=== PATIENT | male | born 1980 | race Asian ===

== ENCOUNTER 2017-07-15 04:50 | Inpatient (IN) | payer MEDICAID ==
[2017-07-15] VITALS (7 sets, daily range): BP systolic 100–132
[~2017-07-15] VITALS: Ht 182.9 cm; Wt 88.5 kg
[~2017-07-15 04:50] MED LIST: CAT2PAT TD; CHLO473M5 MM; LEVE100S GT; NOR10 GT; TOPXL100 PO; TYLL650 PO; VITD2000 GT
[2017-07-15] MEDS ORDERED: NACL 0.9% 1,000 ML IV SCH (05:05)
[2017-07-15 05:45] LABS: BILIRUBIN,URINE NEGATIVE (NEGATIVE); BLOOD, URINE 2+ (NEGATIVE); CLARITY/URINE CLEAR (CLEAR); COLOR,URINE YELLOW (YELLOW); GLUCOSE,URINE NEGATIVE (NEGATIVE); KETONES,URINE NEGATIVE (NEGATIVE); LEUKOCYTE ESTERASE ,URINE NEGATIVE (NEGATIVE); NITRITE, URINE NEGATIVE (NEGATIVE); PH,URINE 6.5 (5.0-8.0); PROTEIN URINE 2+ (NEGATIVE); UROBILINOGEN,URINE 0.2 (0.2-1.0)
[2017-07-15 05:50] LABS: BACTERIA,URINE MODERATE /HPF (None Seen); RBC,URINE 20-50 /HPF (0-3); WBC,URINE 0-3 /HPF (0-3)
[2017-07-15 05:53] LABS: BASOPHILS % (AUTO) 0.3 % (0.0-2.0); EOSINOPHILS % (AUTO) 0.4 % (0.0-4.0); MEAN CORPUSCULAR HEMOGLOBIN 31 pg (27-31); MONOCYTES # (AUTO) 0.7 K/uL (0.0-1.0)
[2017-07-15 06:00] LABS: HEMATOCRIT 44.1 % (36-54); HEMOGLOBIN 14.4 g/dL (14.0-18.0); LYMPHOCYTES # (AUTO) 0.9 K/uL (1.0-5.5); LYMPHOCYTES % (AUTO) 9.6 % (20.5-51.5); MEAN CORPUSCULAR HGB CONC 33 % (32-36); MEAN CORPUSCULAR VOLUME 93 fL (79.0-98.0); NEUTROPHILS # (AUTO) 8.2 K/uL (1.8-7.7); NEUTROPHILS % (AUTO) 82.7 % (40.0-70.0); PLATELET COUNT (AUTO) 200 K/uL (130-430); RED BLOOD CELL COUNT(AUTO) 4.74 MIL/uL (4.2-6.2); WHITE BLOOD COUNT (AUTO) 9.8 K/uL (4.8-10.8)
[2017-07-15 06:01] LABS: CALCIUM 9.9 mg/dL (8.4-11.0); CREATININE 2.22 mg/dL (0.55-1.30); POTASSIUM 3.6 mmol/L (3.5-5.1)
[2017-07-15 06:04] LABS: INR 1.1 (0.80-1.20); PROTHROMBIN TIME 10.7 SECS (9.5-12.5)
[2017-07-15 06:05] LABS: ALBUMIN 3.2 g/dL (3.4-4.8); TOTAL BILIRUBIN 0.4 mg/dL (0.0-1.0)
[2017-07-15] MEDS ORDERED: CEFTAZIDIME 1 GM in D5W 50 ML IV ONE (06:15)
[2017-07-15] MEDS ORDERED: CEFTAZIDIME 1 GM VIAL ONE (06:21)
[2017-07-15] MEDS ORDERED: SENN8.8S12 GT (06:34)
[2017-07-15] MEDS ORDERED: OMEG1CAP97 GT (06:34)
[2017-07-15] MEDS ORDERED: ALBU2.5V7 INH ×2 (06:34)
[2017-07-15] MEDS ORDERED: MAGN400O4 GT (06:34)
[2017-07-15] MEDS ORDERED: VITD2000 GT (06:34)
[2017-07-15] MEDS ORDERED: COLL100 GT (06:34)
[2017-07-15] MEDS ORDERED: NACL 0.9% 1,000 ML IV ONE (06:37)
[2017-07-15] MEDS: KCL 20 mEq in D5/0.45NS 1000mL 1,000 ML IV SCH ×2 (08:57→19:17)
[2017-07-15] MEDS ORDERED: MILK OF MAGNESIA 30 ML UDC PO PRN (09:45)
[2017-07-15] MEDS ORDERED: ALBUTEROL SULFATE 0.083% 2.5 MG/3 ML VIAL.NEB INH PRN ×2 (09:45)
[2017-07-15] MEDS ORDERED: LevALBUTEROL HCL 1.25 MG/0.5 ML *CONC.* VIAL.NEB (XOPENEX CONC.) INH PRN (09:45)
[2017-07-15] MEDS ORDERED: ACETAMINOPHEN 650 MG/20.3 ML UDC PO PRN (09:45)
[2017-07-15] MEDS ORDERED: METOPROLOL SUCCINATE 50 MG TAB.SR.24H (TOPROL XL) PO ONE (10:30)
[2017-07-15] MEDS ORDERED: CHOLECALCIFEROL (VITAMIN D3) 2,000 UNIT TABLET GT ONE (10:30)
[2017-07-15] MEDS ORDERED: amLODIPine BESYLATE 10 MG TABLET GT ONE (10:30)
[2017-07-15] MEDS ORDERED: levETIRAcetam 500 MG TABLET GT ONE (10:30)
[2017-07-15] MEDS: PIPERACILLIN/TAZO 3.375/DEX-IS 50 ML IV SCH ×2 (11:39→17:44)
[2017-07-15] MEDS ORDERED: AZITHROMYCIN 250 MG TABLET GT ONE (12:45)
[2017-07-15] MEDS ORDERED: METOPROLOL TARTRATE 25 MG TABLET GT ONE (13:00)
[2017-07-15] MEDS: LevALBUTEROL HCL 1.25 MG/0.5 ML *CONC.* VIAL.NEB (XOPENEX CONC.) INH SCH ×2 (15:10→23:45)
[2017-07-15] MEDS ORDERED: FLU VACC QS 2017-18(36MOS+)/PF 0.5 ML/SYR SYRINGE I.M. PRN (15:45)
[2017-07-15] MEDS: MILK OF MAGNESIA 30 ML UDC GT SCH (21:00)
[2017-07-15] MEDS ORDERED: DOCUSATE SODIUM 100 MG/10 ML UDC GT SCH (21:00)
[2017-07-15] MEDS: SENNOSIDES/DOCUSATE SODIUM 1 TAB TABLET(SENOKOT-S) GT SCH (21:00)
[2017-07-15] MEDS: DOCUSATE SODIUM 100 MG/10 ML UDC GT SCH (21:00)
[2017-07-15] MEDS ORDERED: METOPROLOL SUCCINATE 50 MG TAB.SR.24H (TOPROL XL) PO SCH (21:00)
[2017-07-15] MEDS: levETIRAcetam 500 MG TABLET GT SCH (21:53)
[2017-07-15] MEDS: METOPROLOL TARTRATE 25 MG TABLET GT SCH (21:55)
[2017-07-15] MEDS: CHLORHEXIDINE GLUCONATE 15 ML/DOSE, 480 ML MM SCH (21:56)
[2017-07-16] MEDS: PIPERACILLIN/TAZO 3.375/DEX-IS 50 ML IV SCH ×4 (00:04→17:22)
[2017-07-16 00:54] VITALS: BP_SYST 107
[2017-07-16] MEDS: KCL 20 mEq in D5/0.45NS 1000mL 1,000 ML IV SCH ×2 (04:14→16:59)
[2017-07-16 07:04] LABS: BASOPHILS % (AUTO) 0.3 % (0.0-2.0); EOSINOPHILS # (AUTO) 0.4 K/uL (0.0-0.4); EOSINOPHILS % (AUTO) 4.2 % (0.0-4.0); HEMATOCRIT 35.9 % (36-54); HEMOGLOBIN 12.1 g/dL (14.0-18.0); LYMPHOCYTES # (AUTO) 1.1 K/uL (1.0-5.5); MEAN CORPUSCULAR HEMOGLOBIN 32 pg (27-31); MEAN CORPUSCULAR HGB CONC 34 % (32-36); MEAN CORPUSCULAR VOLUME 94 fL (79.0-98.0); MONOCYTES # (AUTO) 0.8 K/uL (0.0-1.0); MONOCYTES % (AUTO) 8.4 % (1.7-9.3); NEUTROPHILS # (AUTO) 6.9 K/uL (1.8-7.7); NEUTROPHILS % (AUTO) 75.1 % (40.0-70.0); PLATELET COUNT (AUTO) 158 K/uL (130-430); RED BLOOD CELL COUNT(AUTO) 3.81 MIL/uL (4.2-6.2); RED CELL DISTRIBUTION WIDTH 12.7 % (9.0-15.0); WHITE BLOOD COUNT (AUTO) 9.2 K/uL (4.8-10.8)
[2017-07-16] MEDS: LevALBUTEROL HCL 1.25 MG/0.5 ML *CONC.* VIAL.NEB (XOPENEX CONC.) INH SCH ×2 (07:04→15:29)
[2017-07-16 07:07] LABS: CALCIUM 8.3 mg/dL (8.4-11.0); CREATININE 1.67 mg/dL (0.55-1.30); POTASSIUM 3.4 mmol/L (3.5-5.1)
[2017-07-16 07:34] LABS: ALBUMIN 2.5 g/dL (3.4-4.8); FREE T4 (FREE THYROXINE) 1.3 ng/dl (0.8-1.5); PHOSPHORUS 2.5 mg/dL (2.7-4.5); TOTAL BILIRUBIN 0.3 mg/dL (0.0-1.0)
[2017-07-16 07:58] VITALS: BP_SYST 115
[2017-07-16] MEDS: DOCUSATE SODIUM 100 MG/10 ML UDC GT SCH ×2 (09:00→20:33)
[2017-07-16] MEDS ORDERED: CHOLECALCIFEROL (VITAMIN D3) 2,000 UNIT TABLET GT SCH (09:00)
[2017-07-16] MEDS: CHOLECALCIFEROL (VITAMIN D3) 2,000 UNIT TABLET GT SCH (09:13)
[2017-07-16] MEDS: AZITHROMYCIN 250 MG TABLET GT SCH (09:13)
[2017-07-16] MEDS: amLODIPine BESYLATE 10 MG TABLET GT SCH (09:14)
[2017-07-16] MEDS: levETIRAcetam 500 MG TABLET GT SCH ×2 (09:14→20:33)
[2017-07-16] MEDS: METOPROLOL TARTRATE 25 MG TABLET GT SCH ×2 (09:14→20:34)
[2017-07-16] MEDS: CHLORHEXIDINE GLUCONATE 15 ML/DOSE, 480 ML MM SCH ×2 (09:18→20:35)
[2017-07-16] MEDS ORDERED: POTASSIUM CHLORIDE 20 MEQ/PKT PACKET GT ONE (11:00)
[2017-07-16 12:37] VITALS: BP_SYST 103
[2017-07-16 16:16] VITALS: BP_SYST 114
[2017-07-16 20:09] VITALS: BP_SYST 116
[2017-07-16] MEDS: MILK OF MAGNESIA 30 ML UDC GT SCH (20:34)
[2017-07-16] MEDS: POTASSIUM CHLORIDE 20 MEQ/PKT PACKET PO SCH (20:35)
[2017-07-16] MEDS: SENNOSIDES/DOCUSATE SODIUM 1 TAB TABLET(SENOKOT-S) GT SCH (20:36)
[2017-07-17 00:01] VITALS: BP_SYST 117
[2017-07-17] MEDS: PIPERACILLIN/TAZO 3.375/DEX-IS 50 ML IV SCH ×3 (01:34→12:41)
[2017-07-17] MEDS: KCL 20 mEq in D5/0.45NS 1000mL 1,000 ML IV SCH ×2 (02:41→16:01)
[2017-07-17] MEDS: LevALBUTEROL HCL 1.25 MG/0.5 ML *CONC.* VIAL.NEB (XOPENEX CONC.) INH SCH ×3 (05:05→16:26)
[2017-07-17 07:59] VITALS: BP_SYST 148
[2017-07-17 08:17] LABS: BASOPHILS % (AUTO) 0.3 % (0.0-2.0); EOSINOPHILS # (AUTO) 0.5 K/uL (0.0-0.4); EOSINOPHILS % (AUTO) 6.5 % (0.0-4.0); HEMOGLOBIN 12.3 g/dL (14.0-18.0); LYMPHOCYTES # (AUTO) 1.3 K/uL (1.0-5.5); LYMPHOCYTES % (AUTO) 17.8 % (20.5-51.5); MEAN CORPUSCULAR HEMOGLOBIN 31 pg (27-31); MEAN CORPUSCULAR HGB CONC 33 % (32-36); MEAN CORPUSCULAR VOLUME 95 fL (79.0-98.0); MONOCYTES # (AUTO) 0.6 K/uL (0.0-1.0); MONOCYTES % (AUTO) 7.5 % (1.7-9.3); NEUTROPHILS % (AUTO) 67.9 % (40.0-70.0); PLATELET COUNT (AUTO) 161 K/uL (130-430); RED BLOOD CELL COUNT(AUTO) 3.92 MIL/uL (4.2-6.2); RED CELL DISTRIBUTION WIDTH 12.9 % (9.0-15.0); WHITE BLOOD COUNT (AUTO) 7.4 K/uL (4.8-10.8)
[2017-07-17] MEDS: CHOLECALCIFEROL (VITAMIN D3) 2,000 UNIT TABLET GT SCH (08:21)
[2017-07-17] MEDS: amLODIPine BESYLATE 10 MG TABLET GT SCH (08:22)
[2017-07-17] MEDS: POTASSIUM CHLORIDE 20 MEQ/PKT PACKET PO SCH (08:23)
[2017-07-17] MEDS: levETIRAcetam 500 MG TABLET GT SCH (08:23)
[2017-07-17] MEDS: DOCUSATE SODIUM 100 MG/10 ML UDC GT SCH (08:23)
[2017-07-17] MEDS: AZITHROMYCIN 250 MG TABLET GT SCH (08:23)
[2017-07-17] MEDS: METOPROLOL TARTRATE 25 MG TABLET GT SCH (08:23)
[2017-07-17 08:44] LABS: ALBUMIN 2.9 g/dL (3.4-4.8); CALCIUM 9.2 mg/dL (8.4-11.0); CREATININE 1.33 mg/dL (0.55-1.30); TOTAL BILIRUBIN 0.3 mg/dL (0.0-1.0)
[2017-07-17 11:00] VITALS: BP_SYST 136
[2017-07-17 12:14] VITALS: BP_SYST 136
[2017-07-17] MEDS: CHLORHEXIDINE GLUCONATE 15 ML/DOSE, 480 ML MM SCH (12:46)
[2017-07-17] MEDS ORDERED: PIPE3.379 IV (16:51)
[2017-07-17 16:55] VITALS: BP_SYST 136
[2017-07-17 17:00] VITALS: BP_SYST 133
[2017-07-17] MEDS ORDERED: PIPERACILLIN/TAZO 3.375/DEX-IS 50 ML IV SCH (22:00)
[2017-07-19] MEDS ORDERED: cloNIDine HCL 0.2 MG/24 HR PATCH.TDWK TD SCH (09:00)
== END 2017-07-17 19:38 | DRG 469 ==
LOC: SED 04:50 → STU 06:22 → SMU 07-17 16:16
PROVIDERS: ADMIT Family Medicine; ATTEND Internal Medicine
DX: N17.0 Acute kidney failure with tubular necrosis (principal); J96.20 Acute and chronic respiratory failure, unspecified whether with hypoxia or hypercapnia; G93.49 Other encephalopathy; J15.1 Pneumonia due to Pseudomonas; J15.6 Pneumonia due to other Gram-negative bacteria; Z93.0 Tracheostomy status; I10 Essential (primary) hypertension; N31.9 Neuromuscular dysfunction of bladder, unspecified; Z82.3 Family history of stroke; Z82.49 Family history of ischemic heart disease and other diseases of the circulatory system; Z86.73 Personal history of transient ischemic attack (TIA), and cerebral infarction without residual deficits
CPT/HCPCS: 36415; 71045; 76700-TC; 78226; 80053; 81000-TC; 83605; 84100-TC; 84439; 85025; 85610-TC; 85730-TC; 87040-TC; 87070-TC; 87081; 87086; 87186-TC; 87205-TC; 94640; 94760; 96361; 96365; 99285; A9537; J0713; J2543; J7030; J7060; Q0144; Q2037

== ENCOUNTER 2018-05-06 19:24 | Inpatient (IN) | payer MEDICAID ==
[~2018-05-06] VITALS: Ht 185.4 cm; Wt 98.9 kg
[~2018-05-06 19:24] MED LIST changes: +ALBU2.5V7 INH; +CAT.2 GT; +COLL100 GT; +DEXT30DR6 EACH EYE; +DOCU-144 GT; +LEVE500T9 GT; +METO-442 GT; +MOM GT; +MOM PO; +NITR50CA PO; +NOR10 PO; +OMEG-158 GT; +SENN8.6T19 GT; +SENN8.8S12 GT; +TYLL650 GT; +[UNRECOGNIZED DRUG - CODE] OP
[2018-05-06 19:25] VITALS: BP_SYST 93
[2018-05-06] MEDS ORDERED: VANCOMYCIN HCL 1,000 MG in NS 250 ML IV ONE (19:45)
[2018-05-06] MEDS ORDERED: NACL 0.9% 1,000 ML IV ONE (19:45)
[2018-05-06] MEDS ORDERED: PIPERACILLIN/TAZO 3.375 GM in NS 50 ML IV ONE (19:45)
[2018-05-06 20:02] LABS: EOSINOPHILS # (AUTO) 0.1 K/uL (0.0-0.4); EOSINOPHILS % (AUTO) 0.8 % (0.0-4.0); HEMOGLOBIN 14.8 g/dL (14.0-18.0)
[2018-05-06] MEDS ORDERED: PIPERACILLIN/TAZOBACTAM 3.375 GM/VIAL (ZOSYN) IV ONE (20:03)
[2018-05-06 20:12] LABS: CALCIUM 9.8 mg/dL (8.4-11.0); CREATININE 1.67 mg/dL (0.55-1.30); POTASSIUM 4.2 mmol/L (3.5-5.1)
[2018-05-06 20:15] LABS: BILIRUBIN,URINE NEGATIVE (NEGATIVE); BLOOD, URINE NEGATIVE (NEGATIVE); CLARITY/URINE CLEAR (CLEAR); COLOR,URINE YELLOW (YELLOW); GLUCOSE,URINE NEGATIVE (NEGATIVE); KETONES,URINE NEGATIVE (NEGATIVE); LEUKOCYTE ESTERASE ,URINE NEGATIVE (NEGATIVE); NITRITE, URINE NEGATIVE (NEGATIVE); PH,URINE 5.5 (5.0-8.0); PROTEIN URINE 2+ (NEGATIVE); UROBILINOGEN,URINE 0.2 (0.2-1.0)
[2018-05-06 20:18] LABS: INR 1.1 (0.80-1.20); PROTHROMBIN TIME 10.8 SECS (9.5-12.5)
[2018-05-06 20:21] LABS: BACTERIA,URINE MODERATE /HPF (None Seen); FINE GRANULAR CASTS,URINE 0-10 /LPF (None Seen); RBC,URINE 0-3 /HPF (0-3); WBC,URINE 0-3 /HPF (0-3)
[2018-05-06 20:24] LABS: BASOPHILS # (AUTO) 0.2 K/uL (0.0-0.2); HEMATOCRIT 45.3 % (36-54); LYMPHOCYTES % (AUTO) 6.3 % (20.5-51.5); MEAN CORPUSCULAR HEMOGLOBIN 31 pg (27-31); MEAN CORPUSCULAR HGB CONC 33 % (32-36); MEAN CORPUSCULAR VOLUME 93 fL (79.0-98.0); MONOCYTES # (AUTO) 1.3 K/uL (0.0-1.0); MONOCYTES % (AUTO) 8.3 % (1.7-9.3); NEUTROPHILS % (AUTO) 83.6 % (40.0-70.0); PLATELET COUNT (AUTO) 199 K/uL (130-430); RED BLOOD CELL COUNT(AUTO) 4.85 MIL/uL (4.2-6.2); RED CELL DISTRIBUTION WIDTH 14.6 % (9.0-15.0); WHITE BLOOD COUNT (AUTO) 15.6 K/uL (4.8-10.8)
[2018-05-06] MEDS ORDERED: VANCOMYCIN HCL 1000 MG/VIAL IV ONE (20:26)
[2018-05-06 20:28] LABS: ALBUMIN 2.8 g/dL (3.4-4.8); TOTAL BILIRUBIN 0.6 mg/dL (0.0-1.0)
[2018-05-06] MEDS ORDERED: CLON0.2T GT (20:51)
[2018-05-06] MEDS: LevALBUTEROL HCL 1.25 MG/0.5 ML *CONC.* VIAL.NEB (XOPENEX CONC.) INH SCH (23:00)
[2018-05-06] MEDS ORDERED: KCL 20 mEq in D5NS 1000 mL 1,000 ML IV ONE (23:00)
[2018-05-07] VITALS (26 sets, daily range): BP systolic 91–116
[2018-05-07] MEDS ORDERED: PIPERACILLIN/TAZOBACTAM 2.25 GM VIAL IV ONE (00:35)
[2018-05-07] MEDS ORDERED: PIPERACILLIN/TAZOBACTAM 2.25 GM in NS 50 ML IV SCH (02:00)
[2018-05-07] MEDS: LevALBUTEROL HCL 1.25 MG/0.5 ML *CONC.* VIAL.NEB (XOPENEX CONC.) INH SCH ×6 (03:54→23:22)
[2018-05-07 06:30] LABS: BASOPHILS % (AUTO) 0.2 % (0.0-2.0); EOSINOPHILS # (AUTO) 0.3 K/uL (0.0-0.4); EOSINOPHILS % (AUTO) 2.1 % (0.0-4.0); HEMATOCRIT 36.9 % (36-54); HEMOGLOBIN 12.1 g/dL (14.0-18.0); LYMPHOCYTES # (AUTO) 0.6 K/uL (1.0-5.5); LYMPHOCYTES % (AUTO) 4.6 % (20.5-51.5); MEAN CORPUSCULAR HEMOGLOBIN 30 pg (27-31); MEAN CORPUSCULAR HGB CONC 33 % (32-36); MEAN CORPUSCULAR VOLUME 92 fL (79.0-98.0); MONOCYTES # (AUTO) 0.8 K/uL (0.0-1.0); MONOCYTES % (AUTO) 6.3 % (1.7-9.3); NEUTROPHILS # (AUTO) 10.8 K/uL (1.8-7.7); NEUTROPHILS % (AUTO) 86.8 % (40.0-70.0); PLATELET COUNT (AUTO) 195 K/uL (130-430); RED BLOOD CELL COUNT(AUTO) 4.01 MIL/uL (4.2-6.2); RED CELL DISTRIBUTION WIDTH 14.1 % (9.0-15.0); WHITE BLOOD COUNT (AUTO) 12.5 K/uL (4.8-10.8)
[2018-05-07 07:02] LABS: ALBUMIN 2.3 g/dL (3.4-4.8); CALCIUM 8.9 mg/dL (8.4-11.0); CREATININE 1.54 mg/dL (0.55-1.30); POTASSIUM 4.1 mmol/L (3.5-5.1); TOTAL BILIRUBIN 0.7 mg/dL (0.0-1.0)
[2018-05-07] MEDS: VANCOMYCIN HCL 1,500 MG in NS 250 ML IV SCH ×2 (09:36→21:48)
[2018-05-07] MEDS: PIPERACILLIN/TAZOBACTAM 2.25 GM in NS 50 ML IV SCH ×2 (11:32→17:20)
[2018-05-07] MEDS: 0.45% NACL 1,000 ML IV SCH (11:32)
[2018-05-07] MEDS ORDERED: ALBUTEROL SULFATE 0.083% 2.5 MG/3 ML VIAL.NEB INH PRN (19:45)
[2018-05-07] MEDS ORDERED: ACETAMINOPHEN 650 MG/20.3 ML UDC PO PRN (19:45)
[2018-05-07] MEDS ORDERED: cloNIDine HCL 0.2 MG TABLET GT SCH (19:45)
[2018-05-07] MEDS ORDERED: CHLORHEXIDINE GLUCONATE 15 ML/DOSE, 480 ML MM SCH (21:00)
[2018-05-07] MEDS: METOPROLOL TARTRATE 50 MG TABLET GT SCH (21:00)
[2018-05-07] MEDS: LevETIRAcetam 500 MG/5 ML UDC ORAL LIQUID GT SCH (21:00)
[2018-05-07] MEDS: DOCUSATE SODIUM 100 MG/10 ML UDC GT SCH (21:48)
[2018-05-07] MEDS: MILK OF MAGNESIA 30 ML UDC GT SCH (21:48)
[2018-05-07] MEDS: PEG 400/HYPROMELLOSE/GLYCERIN 15 ML DROPS OP SCH (21:49)
[2018-05-07] MEDS ORDERED: levETIRAcetam 500 MG TABLET ONE (22:00)
[2018-05-08] VITALS (24 sets, daily range): BP systolic 103–140
[2018-05-08] MEDS: PIPERACILLIN/TAZOBACTAM 2.25 GM in NS 50 ML IV SCH ×5 (01:09→23:13)
[2018-05-08] MEDS: LevALBUTEROL HCL 1.25 MG/0.5 ML *CONC.* VIAL.NEB (XOPENEX CONC.) INH SCH ×6 (04:13→23:10)
[2018-05-08 05:37] LABS: BASOPHILS % (AUTO) 0.4 % (0.0-2.0); EOSINOPHILS # (AUTO) 0.4 K/uL (0.0-0.4); EOSINOPHILS % (AUTO) 4.6 % (0.0-4.0); HEMATOCRIT 35.1 % (36-54); HEMOGLOBIN 11.3 g/dL (14.0-18.0); LYMPHOCYTES # (AUTO) 0.5 K/uL (1.0-5.5); LYMPHOCYTES % (AUTO) 6.2 % (20.5-51.5); MEAN CORPUSCULAR HEMOGLOBIN 30 pg (27-31); MEAN CORPUSCULAR HGB CONC 32 % (32-36); MEAN CORPUSCULAR VOLUME 93 fL (79.0-98.0); MONOCYTES # (AUTO) 0.6 K/uL (0.0-1.0); MONOCYTES % (AUTO) 6.9 % (1.7-9.3); NEUTROPHILS # (AUTO) 7.1 K/uL (1.8-7.7); NEUTROPHILS % (AUTO) 81.9 % (40.0-70.0); PLATELET COUNT (AUTO) 198 K/uL (130-430); RED BLOOD CELL COUNT(AUTO) 3.78 MIL/uL (4.2-6.2); WHITE BLOOD COUNT (AUTO) 8.6 K/uL (4.8-10.8)
[2018-05-08 05:40] LABS: ALBUMIN 2.2 g/dL (3.4-4.8); CALCIUM 8.8 mg/dL (8.4-11.0); CREATININE 1.32 mg/dL (0.55-1.30); POTASSIUM 4.1 mmol/L (3.5-5.1)
[2018-05-08 06:07] LABS: TOTAL BILIRUBIN 0.3 mg/dL (0.0-1.0)
[2018-05-08] MEDS: 0.45% NACL 1,000 ML IV SCH ×2 (07:15→16:32)
[2018-05-08] MEDS: DOCUSATE SODIUM 100 MG/10 ML UDC GT SCH ×2 (08:12→21:01)
[2018-05-08] MEDS: amLODIPine BESYLATE 10 MG TABLET GT SCH (08:13)
[2018-05-08] MEDS: METOPROLOL TARTRATE 50 MG TABLET GT SCH ×2 (08:13→21:02)
[2018-05-08] MEDS: CHLORHEXIDINE GLUCONATE 15 ML/DOSE, 480 ML MM SCH ×2 (09:30→20:59)
[2018-05-08] MEDS: PEG 400/HYPROMELLOSE/GLYCERIN 15 ML DROPS OP SCH ×4 (09:32→21:02)
[2018-05-08] MEDS: LevETIRAcetam 500 MG/5 ML UDC ORAL LIQUID GT SCH ×2 (09:33→21:02)
[2018-05-08] MEDS: VANCOMYCIN HCL 1,500 MG in NS 250 ML IV SCH ×2 (09:33→21:00)
[2018-05-08] MEDS: MILK OF MAGNESIA 30 ML UDC GT SCH (21:00)
[2018-05-09] VITALS (11 sets, daily range): BP systolic 123–159
[2018-05-09] MEDS: LevALBUTEROL HCL 1.25 MG/0.5 ML *CONC.* VIAL.NEB (XOPENEX CONC.) INH SCH ×6 (04:10→23:10)
[2018-05-09] MEDS: PIPERACILLIN/TAZOBACTAM 2.25 GM in NS 50 ML IV SCH ×4 (05:08→23:51)
[2018-05-09 07:10] LABS: BASOPHILS % (AUTO) 0.3 % (0.0-2.0); EOSINOPHILS # (AUTO) 0.4 K/uL (0.0-0.4); EOSINOPHILS % (AUTO) 6.2 % (0.0-4.0); HEMATOCRIT 36.8 % (36-54); HEMOGLOBIN 11.5 g/dL (14.0-18.0); LYMPHOCYTES # (AUTO) 0.6 K/uL (1.0-5.5); LYMPHOCYTES % (AUTO) 8.1 % (20.5-51.5); MEAN CORPUSCULAR HEMOGLOBIN 29 pg (27-31); MEAN CORPUSCULAR HGB CONC 31 % (32-36); MEAN CORPUSCULAR VOLUME 93 fL (79.0-98.0); MONOCYTES # (AUTO) 0.5 K/uL (0.0-1.0); MONOCYTES % (AUTO) 7.5 % (1.7-9.3); NEUTROPHILS # (AUTO) 5.8 K/uL (1.8-7.7); NEUTROPHILS % (AUTO) 77.9 % (40.0-70.0); PLATELET COUNT (AUTO) 210 K/uL (130-430); RED BLOOD CELL COUNT(AUTO) 3.95 MIL/uL (4.2-6.2); WHITE BLOOD COUNT (AUTO) 7.3 K/uL (4.8-10.8)
[2018-05-09 07:51] LABS: ALBUMIN 2.3 g/dL (3.4-4.8); CALCIUM 9.2 mg/dL (8.4-11.0); CREATININE 1.23 mg/dL (0.55-1.30); POTASSIUM 3.8 mmol/L (3.5-5.1); TOTAL BILIRUBIN 0.3 mg/dL (0.0-1.0)
[2018-05-09] MEDS ORDERED: cloNIDine HCL 0.2 MG/24 HR PATCH.TDWK TD SCH (09:00)
[2018-05-09] MEDS: DOCUSATE SODIUM 100 MG/10 ML UDC GT SCH ×2 (09:52→20:46)
[2018-05-09] MEDS: LevETIRAcetam 500 MG/5 ML UDC ORAL LIQUID GT SCH ×2 (09:53→20:52)
[2018-05-09] MEDS: amLODIPine BESYLATE 10 MG TABLET GT SCH (09:54)
[2018-05-09] MEDS: METOPROLOL TARTRATE 50 MG TABLET GT SCH ×2 (09:54→20:52)
[2018-05-09] MEDS: PEG 400/HYPROMELLOSE/GLYCERIN 15 ML DROPS OP SCH ×4 (09:55→20:47)
[2018-05-09] MEDS: CHLORHEXIDINE GLUCONATE 15 ML/DOSE, 480 ML MM SCH ×2 (09:56→20:48)
[2018-05-09] MEDS: VANCOMYCIN HCL 1,500 MG in NS 250 ML IV SCH ×2 (09:58→20:47)
[2018-05-09] MEDS: 0.45% NACL 1,000 ML IV SCH (18:20)
[2018-05-09] MEDS: MILK OF MAGNESIA 30 ML UDC GT SCH (20:46)
[2018-05-10] VITALS: BP_SYST 136
[2018-05-10] MEDS: LevALBUTEROL HCL 1.25 MG/0.5 ML *CONC.* VIAL.NEB (XOPENEX CONC.) INH SCH ×5 (02:07→22:52)
[2018-05-10] MEDS: PIPERACILLIN/TAZOBACTAM 2.25 GM in NS 50 ML IV SCH ×4 (05:37→23:07)
[2018-05-10 09:00] VITALS: BP_SYST 187
[2018-05-10] MEDS: PEG 400/HYPROMELLOSE/GLYCERIN 15 ML DROPS OP SCH ×4 (09:00→20:47)
[2018-05-10] MEDS: DOCUSATE SODIUM 100 MG/10 ML UDC GT SCH ×2 (09:14→20:45)
[2018-05-10] MEDS: LevETIRAcetam 500 MG/5 ML UDC ORAL LIQUID GT SCH ×2 (09:15→20:46)
[2018-05-10] MEDS: amLODIPine BESYLATE 10 MG TABLET GT SCH (09:15)
[2018-05-10] MEDS: METOPROLOL TARTRATE 50 MG TABLET GT SCH ×2 (09:16→20:46)
[2018-05-10] MEDS: CHLORHEXIDINE GLUCONATE 15 ML/DOSE, 480 ML MM SCH ×2 (09:32→20:47)
[2018-05-10 11:17] VITALS: BP_SYST 150
[2018-05-10 16:37] VITALS: BP_SYST 157
[2018-05-10] MEDS: 0.45% NACL 1,000 ML IV SCH (19:05)
[2018-05-10 19:50] VITALS: BP_SYST 141
[2018-05-10] MEDS: cloNIDine HCL 0.1 MG TABLET GT SCH (20:46)
[2018-05-10] MEDS: MILK OF MAGNESIA 30 ML UDC GT SCH (20:46)
[2018-05-11 00:37] VITALS: BP_SYST 124
[2018-05-11] MEDS: LevALBUTEROL HCL 1.25 MG/0.5 ML *CONC.* VIAL.NEB (XOPENEX CONC.) INH SCH ×6 (03:58→23:53)
[2018-05-11] MEDS: PIPERACILLIN/TAZOBACTAM 2.25 GM in NS 50 ML IV SCH ×3 (06:22→17:02)
[2018-05-11 07:24] LABS: CREATININE 1.24 mg/dL (0.55-1.30); POTASSIUM 3.8 mmol/L (3.5-5.1)
[2018-05-11 07:50] VITALS: BP_SYST 142
[2018-05-11] MEDS: DOCUSATE SODIUM 100 MG/10 ML UDC GT SCH ×2 (08:55→21:01)
[2018-05-11] MEDS: amLODIPine BESYLATE 10 MG TABLET GT SCH (08:56)
[2018-05-11] MEDS: METOPROLOL TARTRATE 50 MG TABLET GT SCH ×2 (08:56→21:02)
[2018-05-11] MEDS: LevETIRAcetam 500 MG/5 ML UDC ORAL LIQUID GT SCH ×2 (08:57→21:01)
[2018-05-11] MEDS: cloNIDine HCL 0.1 MG TABLET GT SCH ×2 (08:57→21:02)
[2018-05-11] MEDS: CHLORHEXIDINE GLUCONATE 15 ML/DOSE, 480 ML MM SCH ×2 (09:00→21:04)
[2018-05-11] MEDS: PEG 400/HYPROMELLOSE/GLYCERIN 15 ML DROPS OP SCH ×4 (09:08→21:01)
[2018-05-11 11:44] VITALS: BP_SYST 111
[2018-05-11] MEDS: VANCOMYCIN HCL 1,500 MG in NS 250 ML IV SCH (13:45)
[2018-05-11] MEDS: 0.45% NACL 1,000 ML IV SCH (13:45)
[2018-05-11 16:37] VITALS: BP_SYST 107
[2018-05-11 20:00] VITALS: BP_SYST 127
[2018-05-11] MEDS: MILK OF MAGNESIA 30 ML UDC GT SCH (21:02)
[2018-05-11 23:24] VITALS: BP_SYST 113
[2018-05-12] MEDS: PIPERACILLIN/TAZOBACTAM 2.25 GM in NS 50 ML IV SCH ×4 (00:24→17:22)
[2018-05-12] MEDS: LevALBUTEROL HCL 1.25 MG/0.5 ML *CONC.* VIAL.NEB (XOPENEX CONC.) INH SCH ×6 (03:46→23:13)
[2018-05-12 08:00] VITALS: BP_SYST 119
[2018-05-12] MEDS: DOCUSATE SODIUM 100 MG/10 ML UDC GT SCH ×2 (08:22→20:41)
[2018-05-12] MEDS: amLODIPine BESYLATE 10 MG TABLET GT SCH (08:23)
[2018-05-12] MEDS: cloNIDine HCL 0.1 MG TABLET GT SCH ×2 (08:23→20:40)
[2018-05-12] MEDS: METOPROLOL TARTRATE 50 MG TABLET GT SCH ×2 (08:24→20:42)
[2018-05-12] MEDS: LevETIRAcetam 500 MG/5 ML UDC ORAL LIQUID GT SCH ×2 (08:25→20:41)
[2018-05-12] MEDS: PEG 400/HYPROMELLOSE/GLYCERIN 15 ML DROPS OP SCH ×4 (08:25→20:39)
[2018-05-12] MEDS: CHLORHEXIDINE GLUCONATE 15 ML/DOSE, 480 ML MM SCH ×2 (08:58→21:00)
[2018-05-12] MEDS: 0.45% NACL 1,000 ML IV SCH ×2 (11:15→14:22)
[2018-05-12 11:57] VITALS: BP_SYST 108
[2018-05-12] MEDS: VANCOMYCIN HCL 1,500 MG in NS 250 ML IV SCH (14:23)
[2018-05-12 16:00] VITALS: BP_SYST 101
[2018-05-12 19:00] VITALS: BP_SYST 118
[2018-05-12 20:00] VITALS: BP_SYST 118
[2018-05-12] MEDS: MILK OF MAGNESIA 30 ML UDC GT SCH (20:43)
[2018-05-12 23:49] VITALS: BP_SYST 122
[2018-05-13] MEDS: PIPERACILLIN/TAZOBACTAM 2.25 GM in NS 50 ML IV SCH ×5 (00:23→23:31)
[2018-05-13] MEDS: LevALBUTEROL HCL 1.25 MG/0.5 ML *CONC.* VIAL.NEB (XOPENEX CONC.) INH SCH ×6 (03:44→23:45)
[2018-05-13] MEDS: DOCUSATE SODIUM 100 MG/10 ML UDC GT SCH ×2 (08:05→20:46)
[2018-05-13] MEDS: amLODIPine BESYLATE 10 MG TABLET GT SCH (08:08)
[2018-05-13] MEDS: cloNIDine HCL 0.1 MG TABLET GT SCH ×2 (08:09→20:51)
[2018-05-13] MEDS: METOPROLOL TARTRATE 50 MG TABLET GT SCH ×2 (08:09→20:52)
[2018-05-13] MEDS: LevETIRAcetam 500 MG/5 ML UDC ORAL LIQUID GT SCH ×2 (08:18→20:46)
[2018-05-13] MEDS: PEG 400/HYPROMELLOSE/GLYCERIN 15 ML DROPS OP SCH ×4 (08:18→20:53)
[2018-05-13] MEDS: CHLORHEXIDINE GLUCONATE 15 ML/DOSE, 480 ML MM SCH ×2 (09:00→20:54)
[2018-05-13 12:00] VITALS: BP_SYST 100
[2018-05-13] MEDS: VANCOMYCIN HCL 1,500 MG in NS 250 ML IV SCH (14:07)
[2018-05-13 16:00] VITALS: BP_SYST 115
[2018-05-13 16:50] VITALS: BP_SYST 100
[2018-05-13 20:00] VITALS: BP_SYST 135
[2018-05-13] MEDS: MILK OF MAGNESIA 30 ML UDC GT SCH (20:47)
[2018-05-14 01:11] VITALS: BP_SYST 129
[2018-05-14] MEDS: LevALBUTEROL HCL 1.25 MG/0.5 ML *CONC.* VIAL.NEB (XOPENEX CONC.) INH SCH ×4 (03:09→19:54)
[2018-05-14] MEDS: PIPERACILLIN/TAZOBACTAM 2.25 GM in NS 50 ML IV SCH ×4 (05:07→23:32)
[2018-05-14 08:09] VITALS: BP_SYST 134
[2018-05-14] MEDS: METOPROLOL TARTRATE 50 MG TABLET GT SCH ×2 (08:21→21:05)
[2018-05-14] MEDS: amLODIPine BESYLATE 10 MG TABLET GT SCH (08:22)
[2018-05-14] MEDS: cloNIDine HCL 0.1 MG TABLET GT SCH ×2 (08:22→21:05)
[2018-05-14] MEDS: DOCUSATE SODIUM 100 MG/10 ML UDC GT SCH ×2 (08:22→21:03)
[2018-05-14] MEDS: LevETIRAcetam 500 MG/5 ML UDC ORAL LIQUID GT SCH ×2 (08:22→21:03)
[2018-05-14] MEDS: PEG 400/HYPROMELLOSE/GLYCERIN 15 ML DROPS OP SCH ×4 (08:23→21:06)
[2018-05-14] MEDS: CHLORHEXIDINE GLUCONATE 15 ML/DOSE, 480 ML MM SCH ×2 (10:12→21:00)
[2018-05-14 12:02] VITALS: BP_SYST 123
[2018-05-14] MEDS: VANCOMYCIN HCL 1,500 MG in NS 250 ML IV SCH (14:00)
[2018-05-14 16:02] VITALS: BP_SYST 134
[2018-05-14 20:00] VITALS: BP_SYST 148
[2018-05-14] MEDS: MILK OF MAGNESIA 30 ML UDC GT SCH (21:03)
[2018-05-15] MEDS: LevALBUTEROL HCL 1.25 MG/0.5 ML *CONC.* VIAL.NEB (XOPENEX CONC.) INH SCH ×7 (01:05→23:17)
[2018-05-15 02:21] VITALS: BP_SYST 141
[2018-05-15] MEDS: PIPERACILLIN/TAZOBACTAM 2.25 GM in NS 50 ML IV SCH ×3 (05:22→17:15)
[2018-05-15 06:48] LABS: BASOPHILS % (AUTO) 0.1 % (0.0-2.0); EOSINOPHILS # (AUTO) 0.4 K/uL (0.0-0.4); EOSINOPHILS % (AUTO) 4.7 % (0.0-4.0); HEMATOCRIT 40.4 % (36-54); HEMOGLOBIN 13.2 g/dL (14.0-18.0); LYMPHOCYTES # (AUTO) 1.1 K/uL (1.0-5.5); LYMPHOCYTES % (AUTO) 12.7 % (20.5-51.5); MEAN CORPUSCULAR HEMOGLOBIN 30 pg (27-31); MEAN CORPUSCULAR HGB CONC 33 % (32-36); MEAN CORPUSCULAR VOLUME 92 fL (79.0-98.0); MONOCYTES # (AUTO) 0.7 K/uL (0.0-1.0); NEUTROPHILS # (AUTO) 6.1 K/uL (1.8-7.7); NEUTROPHILS % (AUTO) 73.5 % (40.0-70.0); PLATELET COUNT (AUTO) 272 K/uL (130-430); RED BLOOD CELL COUNT(AUTO) 4.38 MIL/uL (4.2-6.2); WHITE BLOOD COUNT (AUTO) 8.3 K/uL (4.8-10.8)
[2018-05-15 07:15] LABS: ALBUMIN 2.7 g/dL (3.4-4.8); CALCIUM 9.5 mg/dL (8.4-11.0); CREATININE 1.19 mg/dL (0.55-1.30); POTASSIUM 3.8 mmol/L (3.5-5.1); TOTAL BILIRUBIN 0.2 mg/dL (0.0-1.0)
[2018-05-15 08:02] VITALS: BP_SYST 134
[2018-05-15] MEDS: DOCUSATE SODIUM 100 MG/10 ML UDC GT SCH ×2 (09:36→20:59)
[2018-05-15] MEDS: cloNIDine HCL 0.1 MG TABLET GT SCH ×2 (09:36→21:00)
[2018-05-15] MEDS: METOPROLOL TARTRATE 50 MG TABLET GT SCH ×2 (09:36→21:00)
[2018-05-15] MEDS: amLODIPine BESYLATE 10 MG TABLET GT SCH (09:37)
[2018-05-15] MEDS: PEG 400/HYPROMELLOSE/GLYCERIN 15 ML DROPS OP SCH ×4 (09:37→21:01)
[2018-05-15] MEDS: LevETIRAcetam 500 MG/5 ML UDC ORAL LIQUID GT SCH ×2 (09:37→21:01)
[2018-05-15] MEDS: CHLORHEXIDINE GLUCONATE 15 ML/DOSE, 480 ML MM SCH ×2 (10:44→20:59)
[2018-05-15 12:00] VITALS: BP_SYST 138
[2018-05-15] MEDS: VANCOMYCIN HCL 1,500 MG in NS 250 ML IV SCH (13:02)
[2018-05-15 16:00] VITALS: BP_SYST 127
[2018-05-15 20:08] VITALS: BP_SYST 137
[2018-05-15] MEDS: MILK OF MAGNESIA 30 ML UDC GT SCH (20:59)
[2018-05-16] VITALS (7 sets, daily range): BP systolic 123–136
[2018-05-16] MEDS: PIPERACILLIN/TAZOBACTAM 2.25 GM in NS 50 ML IV SCH ×5 (00:13→23:55)
[2018-05-16] MEDS: LevALBUTEROL HCL 1.25 MG/0.5 ML *CONC.* VIAL.NEB (XOPENEX CONC.) INH SCH ×5 (03:44→19:46)
[2018-05-16] MEDS: CHLORHEXIDINE GLUCONATE 15 ML/DOSE, 480 ML MM SCH ×2 (08:35→21:00)
[2018-05-16] MEDS: DOCUSATE SODIUM 100 MG/10 ML UDC GT SCH ×2 (08:35→22:14)
[2018-05-16] MEDS: amLODIPine BESYLATE 10 MG TABLET GT SCH (08:36)
[2018-05-16] MEDS: LevETIRAcetam 500 MG/5 ML UDC ORAL LIQUID GT SCH ×2 (08:36→22:11)
[2018-05-16] MEDS: METOPROLOL TARTRATE 50 MG TABLET GT SCH ×2 (08:37→22:14)
[2018-05-16] MEDS: cloNIDine HCL 0.1 MG TABLET GT SCH ×2 (08:37→22:13)
[2018-05-16] MEDS: PEG 400/HYPROMELLOSE/GLYCERIN 15 ML DROPS OP SCH ×4 (08:38→22:14)
[2018-05-16] MEDS: VANCOMYCIN HCL 1,500 MG in NS 250 ML IV SCH (13:39)
[2018-05-16] MEDS: MILK OF MAGNESIA 30 ML UDC GT SCH (22:11)
[2018-05-17 00:13] VITALS: BP_SYST 130
[2018-05-17] MEDS: LevALBUTEROL HCL 1.25 MG/0.5 ML *CONC.* VIAL.NEB (XOPENEX CONC.) INH SCH ×6 (03:28→23:10)
[2018-05-17] MEDS: PIPERACILLIN/TAZOBACTAM 2.25 GM in NS 50 ML IV SCH ×4 (06:36→23:07)
[2018-05-17 08:00] VITALS: BP_SYST 122; BP_SYST 147
[2018-05-17] MEDS: cloNIDine HCL 0.1 MG TABLET GT SCH ×2 (09:50→20:58)
[2018-05-17] MEDS: METOPROLOL TARTRATE 50 MG TABLET GT SCH ×2 (09:51→20:58)
[2018-05-17] MEDS: LevETIRAcetam 500 MG/5 ML UDC ORAL LIQUID GT SCH ×2 (09:51→20:59)
[2018-05-17] MEDS: CHLORHEXIDINE GLUCONATE 15 ML/DOSE, 480 ML MM SCH ×2 (09:52→20:53)
[2018-05-17] MEDS: PEG 400/HYPROMELLOSE/GLYCERIN 15 ML DROPS OP SCH ×4 (09:52→20:53)
[2018-05-17] MEDS: amLODIPine BESYLATE 10 MG TABLET GT SCH (09:52)
[2018-05-17] MEDS: DOCUSATE SODIUM 100 MG/10 ML UDC GT SCH ×2 (09:56→20:53)
[2018-05-17 12:36] VITALS: BP_SYST 126
[2018-05-17] MEDS: VANCOMYCIN HCL 1,500 MG in NS 250 ML IV SCH (13:27)
[2018-05-17 16:02] VITALS: BP_SYST 125
[2018-05-17 16:06] VITALS: BP_SYST 122; BP_SYST 136
[2018-05-17 19:45] VITALS: BP_SYST 134
[2018-05-17] MEDS: MILK OF MAGNESIA 30 ML UDC GT SCH (20:52)
[2018-05-18] MEDS: LevALBUTEROL HCL 1.25 MG/0.5 ML *CONC.* VIAL.NEB (XOPENEX CONC.) INH SCH ×4 (02:31→16:02)
[2018-05-18] MEDS: PIPERACILLIN/TAZOBACTAM 2.25 GM in NS 50 ML IV SCH ×2 (06:23→11:13)
[2018-05-18 06:28] VITALS: BP_SYST 125
[2018-05-18 08:00] VITALS: BP_SYST 136
[2018-05-18] MEDS: DOCUSATE SODIUM 100 MG/10 ML UDC GT SCH (09:51)
[2018-05-18] MEDS: cloNIDine HCL 0.1 MG TABLET GT SCH (09:52)
[2018-05-18] MEDS: METOPROLOL TARTRATE 50 MG TABLET GT SCH (09:52)
[2018-05-18] MEDS: amLODIPine BESYLATE 10 MG TABLET GT SCH (09:53)
[2018-05-18] MEDS: CHLORHEXIDINE GLUCONATE 15 ML/DOSE, 480 ML MM SCH (09:53)
[2018-05-18] MEDS: LevETIRAcetam 500 MG/5 ML UDC ORAL LIQUID GT SCH (09:53)
[2018-05-18] MEDS: PEG 400/HYPROMELLOSE/GLYCERIN 15 ML DROPS OP SCH ×2 (09:54→13:06)
[2018-05-18 12:33] VITALS: BP_SYST 115
[2018-05-18] MEDS: VANCOMYCIN HCL 1,500 MG in NS 250 ML IV SCH (13:06)
[2018-05-18 16:33] VITALS: BP_SYST 116
== END 2018-05-18 18:06 | DRG 720 ==
LOC: SED 19:24 → SIC 23:00 → STU 05-09 07:00
PROVIDERS: ADMIT Family Medicine; ATTEND Family Medicine
DX: A41.9 Sepsis, unspecified organism (principal); J96.21 Acute and chronic respiratory failure with hypoxia; J69.0 Pneumonitis due to inhalation of food and vomit; G93.40 Encephalopathy, unspecified; E43 Unspecified severe protein-calorie malnutrition; R40.3 Persistent vegetative state; J15.6 Pneumonia due to other Gram-negative bacteria; Z93.0 Tracheostomy status; N17.9 Acute kidney failure, unspecified; I95.9 Hypotension, unspecified; E86.0 Dehydration; G81.91 Hemiplegia, unspecified affecting right dominant side; N31.9 Neuromuscular dysfunction of bladder, unspecified; G40.909 Epilepsy, unspecified, not intractable, without status epilepticus; B96.20 Unspecified Escherichia coli [E. coli] as the cause of diseases classified elsewhere; B96.5 Pseudomonas (aeruginosa) (mallei) (pseudomallei) as the cause of diseases classified elsewhere; B96.1 Klebsiella pneumoniae [K. pneumoniae] as the cause of diseases classified elsewhere; I10 Essential (primary) hypertension; N39.0 Urinary tract infection, site not specified; Z86.73 Personal history of transient ischemic attack (TIA), and cerebral infarction without residual deficits; Z87.891 Personal history of nicotine dependence; Z79.899 Other long term (current) drug therapy; Z68.28 Body mass index [BMI] 28.0-28.9, adult
CPT/HCPCS: 36415; 36600; 71045; 80048; 80053; 80202-TC; 81000-TC; 82803-TC; 83605; 83880; 84484; 85025; 85610-TC; 85730-TC; 87040-TC; 87070-TC; 87081; 87086; 87186-TC; 87205-TC; 93005; 94640; 94760; 96365; 96366; 96368; 99285; G0378; J2543; J3370; J7050; J7612; J7613

== ENCOUNTER 2019-07-28 21:19 | Inpatient (IN) | payer MEDICAID ==
[~2019-07-28] VITALS: Ht 170.2 cm; Wt 98.9 kg
[~2019-07-28 21:19] MED LIST changes: -CAT.2 GT; +CLON0.2T GT; -DOCU-144 GT; -LEVE100S GT; -MOM PO; -NITR50CA PO; -NOR10 PO; -SENN8.8S12 GT; -TOPXL100 PO; -TYLL650 GT; -VITD2000 GT
[2019-07-28 21:30] VITALS: BP_SYST 101
--- NOTE | 2019-07-28 21:30 | NUR ---
Patient to ER bed 5 to gown for evaluation. Side rails up.
--- NOTE | 2019-07-28 21:30 | NUR ---
Pt [facility] in [facility]. Pt awake, nonverbal, responsive to voice and pain. Pt coming from [facility] after patient had a few episodes of desturation. staff states that they were suctioning the patients tracheostomy last night and had appearance of scant blood, then they suctioned this morning and had increased amounts of blood on patient. MD wanted patient to be sent out for eval. Pt vital signs stable after arrival to [facility]. Resting in ed bed, no acute distress noted.
--- NOTE | 2019-07-28 21:45 | NUR ---
ER at bedside examining patient.
--- NOTE | 2019-07-28 22:30 | NUR ---
PT RESTING IN ED BED. SUCTIONED FOR MUCUS.
[2019-07-28 22:39] LABS: BASOPHILS % (AUTO) 0.2 % (0.0-2.0); EOSINOPHILS # (AUTO) 0.1 K/uL (0.0-0.4); EOSINOPHILS % (AUTO) 0.5 % (0.0-4.0); HEMATOCRIT 36.1 % (36-54); LYMPHOCYTES # (AUTO) 0.9 K/uL (1.0-5.5); LYMPHOCYTES % (AUTO) 7.8 % (20.5-51.5); MEAN CORPUSCULAR HEMOGLOBIN 30 pg (27-31); MEAN CORPUSCULAR HGB CONC 33 % (32-36); MEAN CORPUSCULAR VOLUME 90 fL (79.0-98.0); MONOCYTES % (AUTO) 9.3 % (1.7-9.3); NEUTROPHILS # (AUTO) 9.1 K/uL (1.8-7.7); NEUTROPHILS % (AUTO) 82.2 % (40.0-70.0); PLATELET COUNT (AUTO) 224 K/uL (130-430); RED CELL DISTRIBUTION WIDTH 15.7 % (9.0-15.0); WHITE BLOOD COUNT (AUTO) 11.1 K/uL (4.8-10.8)
[2019-07-28 22:41] LABS: CREATININE 1.22 mg/dL (0.55-1.30); POTASSIUM 3.7 mmol/L (3.5-5.1)
[2019-07-28 22:46] LABS: PROTHROMBIN TIME 10.1 SECS (9.5-12.5)
[2019-07-28 22:57] LABS: ALBUMIN 2.5 g/dL (3.4-4.8); TOTAL BILIRUBIN 0.6 mg/dL (0.0-1.0)
[2019-07-28] MEDS ORDERED: AZITHROMYCIN 500 MG in NS 250 ML IV ONE (23:15)
[2019-07-28] MEDS ORDERED: PIPERACILLIN/TAZO 3.375 GM in NS 50 ML IV ONE (23:15)
[2019-07-28] MEDS ORDERED: VANCOMYCIN HCL 1,000 MG in NS 250 ML IV ONE (23:15)
[2019-07-28] MEDS ORDERED: TRI48 GT (23:18)
[2019-07-28] MEDS ORDERED: LIP20 GT (23:18)
[2019-07-28] MEDS ORDERED: UTI-STAT GT (23:18)
[2019-07-28] MEDS ORDERED: POLY119P2 GT (23:18)
[2019-07-28] MEDS ORDERED: DEXT30DR6 EACH EYE (23:18)
[2019-07-28] MEDS ORDERED: ALBU2.5V7 INH (23:18)
--- NOTE | 2019-07-28 23:20 | NUR ---
Medication reconciliation completed with information provided by TREMAINE ROB. Any prior medication reconciliation on file was reviewed and corrected.
[2019-07-28] MEDS ORDERED: AZITHROMYCIN 500 MG/VIAL (ZITHROMAX) IV ONE (23:56)
[2019-07-28] MEDS ORDERED: PIPERACILLIN/TAZOBACTAM 3.375 GM/VIAL (ZOSYN) IV ONE (23:57)
[2019-07-28] MEDS ORDERED: VANCOMYCIN HCL 1000 MG/VIAL IV ONE (23:57)
[2019-07-29] VITALS (27 sets, daily range): BP systolic 92–112
--- NOTE | 2019-07-29 00:30 | NUR ---
pt trach suctioned for mucus. pt coughing and clearing for mucus.
--- NOTE | 2019-07-29 01:24 | NUR ---
Patient will be admitted to care of Dr. Sheffield. Admitted to ICU unit. Will go to room 7. Belongings list completed. Complete and up to date summary report printed. SBAR report to be given at bedside with opportunity for questions.
--- NOTE | 2019-07-29 01:50 | NUR ---
Transfer to icu via ACLS protocol. Licensed nurse present. IV present no signs or symptoms of infiltration.
--- NOTE | 2019-07-29 01:55 | NUR ---
ADMISSION NOTED Pt admitted from ER and transported by gurney. Pt placed in ICU room 7, transferred to ICU bed and placed on in room monitor. VSS with SR seen on the monitor. No signs of acute distress or discomfort noted. Pt awake but confused and non-verbal. Pt trached, TBAR, placed on 3L O2, tolerating well with O2 sats @ 100% and even and unlabored breathing. Clamped Gtube noted to pt's abdomen. LH IV 22g, saline locked. Dressing c/d/i. Chew cath noted draining urine to gravity. Bed is locked and in lowest position, call light within reach, will cont to monitor pt.
--- NOTE | 2019-07-29 03:55 | NUR ---
CONSULTATION PAGED/CALLED Reason for Consultation: PNA Person Who was Notified: Ernestina Villasenor Consulting Physician: Dr. Corona Bindery Cutter Operator Specialty: Pulmo Ordering Physician: Dr. Sheffield
--- NOTE | 2019-07-29 05:00 | NUR ---
Pt in bed with eyes closed resting comfortably, no signs of acute distress or discomfort noted. Bed is locked and in lowest position, call light within reach, will cont to monitor pt.
--- NOTE | 2019-07-29 07:13 | NUR ---
ENDORSEMENT Report given to oncoming dayshift RN using SBAR format and pt care was endorsed. No signs of acute distress or discomfort noted.
--- NOTE | 2019-07-29 07:20 | NUR ---
Opening Note Received bedside report from endorsing RN for continuation of care. Received patient resting in bed, no bleeding in tracheostomy noted. No signs or symptoms of acute distress. Bed locked in lowest position and bed alarm on. Fall and safety precautions in place.
[2019-07-29] MEDS ORDERED: cloNIDine HCL 0.2 MG TABLET GT SCH (08:45)
[2019-07-29] MEDS ORDERED: ALBUTEROL SULFATE 0.083% 2.5 MG/3 ML VIAL.NEB INH PRN (08:45)
[2019-07-29] MEDS ORDERED: ALBUTEROL SULFATE 0.083% 2.5 MG/3 ML VIAL.NEB INH SCH (08:45)
--- NOTE | 2019-07-29 08:54 | NUR ---
Dr. Sheffield at bedside examining patient. New orders received.
[2019-07-29] MEDS: POLYETHYLENE GLYCOL 400 500 GM POWDER PO SCH (09:00)
[2019-07-29] MEDS ORDERED: METOPROLOL TARTRATE 50 MG TABLET GT SCH (09:00)
[2019-07-29] MEDS: amLODIPine BESYLATE 10 MG TABLET GT SCH (09:26)
[2019-07-29] MEDS: levETIRAcetam 500 MG TABLET GT SCH ×2 (09:27→20:10)
[2019-07-29 09:35] LABS: BASOPHILS % (AUTO) 0.2 % (0.0-2.0); EOSINOPHILS # (AUTO) 0.1 K/uL (0.0-0.4); EOSINOPHILS % (AUTO) 0.7 % (0.0-4.0); LYMPHOCYTES # (AUTO) 0.4 K/uL (1.0-5.5); LYMPHOCYTES % (AUTO) 3.4 % (20.5-51.5); MEAN CORPUSCULAR HEMOGLOBIN 30 pg (27-31); MEAN CORPUSCULAR HGB CONC 32 % (32-36); MEAN CORPUSCULAR VOLUME 91 fL (79.0-98.0); MONOCYTES # (AUTO) 1.1 K/uL (0.0-1.0); MONOCYTES % (AUTO) 8.6 % (1.7-9.3); NEUTROPHILS # (AUTO) 11.3 K/uL (1.8-7.7); NEUTROPHILS % (AUTO) 87.1 % (40.0-70.0); PLATELET COUNT (AUTO) 216 K/uL (130-430); RED CELL DISTRIBUTION WIDTH 15.7 % (9.0-15.0)
[2019-07-29] MEDS: VANCOMYCIN HCL 1,750 MG in NS 500 ML IV SCH ×2 (10:36→21:40)
[2019-07-29] MEDS ORDERED: fentaNYL CITRATE/PF 100 MCG/2 ML AMP ONE (10:41)
[2019-07-29] MEDS ORDERED: MIDAZOLAM HCL 5 MG/5 ML VIAL ONE (10:42)
--- NOTE | 2019-07-29 11:26 | NUR ---
Dr. Corona at bedside examining patient. New orders received.
--- NOTE | 2019-07-29 11:55 | NUR ---
TO CT SCAN. PT OFF THE UNIT.
[2019-07-29] MEDS ORDERED: IOHEXOL 100 ML IV ONE (12:05)
--- NOTE | 2019-07-29 12:07 | NUR ---
Patient to radiology for stat CT Chest/Neck accompanied by ACLS RN, RT, and settlement technician.
--- NOTE | 2019-07-29 12:20 | NUR ---
Patient return to ICU from radiology on continuous panel monitor and oxygen using ACLS protocol. ACLS RN, RT and electrical tech/project manager present.
[2019-07-29] MEDS: PIPERACILLIN/TAZO 3.375/DEX-IS 50 ML IV SCH ×3 (13:10→23:49)
[2019-07-29] MEDS: NACL 0.9% 1,000 ML IV SCH (13:12)
[2019-07-29] MEDS ORDERED: LIDOCAINE 2% JELLY UROJECT 10 ML MM ONE (15:03)
[2019-07-29] MEDS ORDERED: LIDOCAINE 1%, 20 ML MDV 20 ML ONE (15:04)
--- NOTE | 2019-07-29 16:00 | NUR ---
Bronchoscopy Dr. Corona at bedside for bronchoscopy procedure. ACLS RN and RT present.
--- NOTE | 2019-07-29 16:30 | NUR ---
Patient placed on ventilator, vent settings AC 14 TV 450 FiO2 40% PEEP 5 per MD order. No signs or symptoms of acute distress noted.
--- NOTE | 2019-07-29 19:10 | NUR ---
Endorsement Endorsed bedside report to oncoming RN using SBAR approach for continuation of care.
--- NOTE | 2019-07-29 19:30 | NUR ---
PM ASSESSMENT Pt in bed with eyes closed resting comfortably, no signs of acute distress or discomfort noted. Family at bedside. Pt trach to vent, with vent settings: AC 14, TV 450, FiO2 40% and PEEP of 5. Pt tolerating vent settings well with O2 sats @ 100% and even and unlabored breathing. Pt has LH 22g IV, c/d/i infusing IVF. Gtube noted. Chew cath noted draining urine to gravity. SCD's noted to pt's lower extremities. Padded side rails noted. Bed is locked and in lowest position, call light within reach, will cont to monitor pt.
[2019-07-29] MEDS: ATORVASTATIN 20 MG TABLET GT SCH (20:10)
--- NOTE | 2019-07-29 23:30 | NUR ---
Pt in bed with eyes closed resting comfortably, no signs of acute distress or discomfort noted, bed is locked and in lowest position, call light within reach, will cont to monitor pt.
[2019-07-30] VITALS (31 sets, daily range): BP systolic 91–115
--- NOTE | 2019-07-30 01:14 | NUR ---
CHG CHG bath given to pt at this time. Pt tolerated bath well, will cont to monitor pt.
[2019-07-30] MEDS: NACL 0.9% 1,000 ML IV SCH ×2 (01:34→16:52)
[2019-07-30] MEDS: PIPERACILLIN/TAZO 3.375/DEX-IS 50 ML IV SCH ×4 (05:12→23:55)
[2019-07-30 06:48] LABS: BASOPHILS % (AUTO) 0.1 % (0.0-2.0); EOSINOPHILS # (AUTO) 0.4 K/uL (0.0-0.4); EOSINOPHILS % (AUTO) 3.2 % (0.0-4.0); HEMATOCRIT 33.8 % (36-54); HEMOGLOBIN 10.9 g/dL (14.0-18.0); LYMPHOCYTES # (AUTO) 0.3 K/uL (1.0-5.5); LYMPHOCYTES % (AUTO) 2.1 % (20.5-51.5); MEAN CORPUSCULAR HEMOGLOBIN 30 pg (27-31); MEAN CORPUSCULAR HGB CONC 32 % (32-36); MEAN CORPUSCULAR VOLUME 91 fL (79.0-98.0); MONOCYTES # (AUTO) 0.9 K/uL (0.0-1.0); MONOCYTES % (AUTO) 7.3 % (1.7-9.3); NEUTROPHILS # (AUTO) 10.7 K/uL (1.8-7.7); NEUTROPHILS % (AUTO) 87.3 % (40.0-70.0); PLATELET COUNT (AUTO) 234 K/uL (130-430); RED CELL DISTRIBUTION WIDTH 15.8 % (9.0-15.0); WHITE BLOOD COUNT (AUTO) 12.2 K/uL (4.8-10.8)
--- NOTE | 2019-07-30 07:13 | NUR ---
ENDORSEMENT Report given to oncoming dayshift RN using SBAR format and pt care was endorsed. No signs of acute distress or discomfort noted.
[2019-07-30 07:21] LABS: ALBUMIN 2.3 g/dL (3.4-4.8); CALCIUM 8.4 mg/dL (8.4-11.0); CREATININE 1.41 mg/dL (0.55-1.30); POTASSIUM 3.6 mmol/L (3.5-5.1); TOTAL BILIRUBIN 0.9 mg/dL (0.0-1.0)
[2019-07-30 08:08] LABS: VANCOMYCIN,TROUGH 45.8 ug/mL (5.0-10.0)
[2019-07-30] MEDS: amLODIPine BESYLATE 10 MG TABLET GT SCH (09:00)
--- NOTE | 2019-07-30 09:00 | NUR ---
Re: Transfer: Inquired to Dorothea about possible transfer to higher level of care to facility with ENT. Awaiting confirmation.
--- NOTE | 2019-07-30 09:17 | NUR ---
New consult paged to Dr. Corbett, Dr. Alcocer cab station attendant. Spoke with exchange.
--- NOTE | 2019-07-30 09:21 | NUR ---
Provided Antonina KAYE with names of 3 ENT on staff.
[2019-07-30] MEDS: levETIRAcetam 500 MG TABLET GT SCH ×2 (09:54→21:32)
[2019-07-30] MEDS: POLYETHYLENE GLYCOL 400 500 GM POWDER PO SCH (09:58)
--- NOTE | 2019-07-30 10:40 | NUR ---
2nd page out to Dr. Alcocer, spoke with exchange. Addendum: 07/30/19 at 1045 by Antonina Ford RN Exchange Ivelisse states that Dr. Alcocer is not prison librarian this weekend and recommends we call Dr. Aguillon for consult.
--- NOTE | 2019-07-30 10:52 | NUR ---
New consult paged to Dr. Aguillon, spoke with exchange.
--- NOTE | 2019-07-30 11:19 | NUR ---
Dr. Aguillon returned call and states he is unable to see pt d/t insurance.
--- NOTE | 2019-07-30 11:30 | NUR ---
Notified Dorothea MUNOZ about situation with ENT MD consults. Left message with case management.
--- NOTE | 2019-07-30 12:18 | NUR ---
Nutrition Update James Scale 13 noted. Pt admitted for tracheostomy bleed Diet: Jevity 1.5 at 50ml/hr, 200ml FWF BMI: 34.3 kg/m2 RD to follow per nutrition care standards.
--- NOTE | 2019-07-30 13:36 | NUR ---
Re: Transfer - Contacted [facility] [phone] for Transfer Center to initiate transfer process, left voicemail.
--- NOTE | 2019-07-30 14:16 | NUR ---
Discharge Planning/Transfer Faxed patient information to [facility] [phone]. Complete at 14:[address] Sheffield cell number and ICU direct line on cover sheet.
--- NOTE | 2019-07-30 15:12 | NUR ---
Re: Transfer - Received call from Cleo from [facility] Transfer Center. Cleo states she is in process of looking for accepting primary physician and needs authorization from patient's insurance.
--- NOTE | 2019-07-30 16:40 | NUR ---
Re: Transfer - Attempted to attain authorization for transfer for patient from insurance with help from case management. Unable to obtain authorization at this time. Cleo from [facility] Transfer Center made aware of situation and will try again tomorrow if case management available.
--- NOTE | 2019-07-30 20:00 | NUR ---
RESPONDS TO NOXIOUS AND PAINFUL STIMULI. OPENS EYES BUT DOES NOT TRACT. TRACH TO VENT. BREATH SOUNDS WITH ADVENTITIOUS SOUNDS. BOWEL SOUNDS (+). SUCTIONED WITH MOD AMOUNT OF RED-TINGED MUCUS OBTAINED. ORAL CARE GIVEN. GT FEEDING WITH JEVITY 1.2 AT 50CC/HR. RESIDUAL CHECK 0. PULSES PALPABLE. SKIN W/D. COLOR SATISFACTORY. HOB UP TO COMFORT. SIDE RAILS UP. SIDE RAILS PADDED. CALL LIGHTS WITHIN REACH. GLASER CATH PATENT DRAINING CLOUDY REDD URINE TO GRAVITY. SR-ST. PARENTS AT BEDSIDE VISITING.
[2019-07-30] MEDS: ATORVASTATIN 20 MG TABLET GT SCH (21:32)
--- NOTE | 2019-07-30 22:00 | NUR ---
SUCTIONED. HS CARE GIVEN . TURNED.
[2019-07-31] VITALS (32 sets, daily range): BP systolic 98–142
--- NOTE | 2019-07-31 | NUR ---
DOZES ON AND OFF. SUCTIONED WITH SAME RESULTS. ORAL CARE GIVEN . RESIDUAL CHECK 0.
--- NOTE | 2019-07-31 02:00 | NUR ---
0RAL CARE DONE, SUBGLOTTIC SUCTIONING DONE , W/ MODERATE AMT. OF TINGE BLOOD OBTAINED. GT INTACT PATENT , TOLERATING FEEDING WELL.W/ JEVITY 1.2 AT 50CC/H . NO RESIDUAL NOTED AT THIS TIME, HOB UP 30 DEGREES FOR COMFORT AND TO PREVENT ASPIRATION. NO SOB NOTED. REPOSITIONED , VSS. WE'LL CONTINUE TO MONITOR.
--- NOTE | 2019-07-31 04:00 | NUR ---
COMPLETE CHG BATH GIVEN AT THIS TIME COMPLETE LINEN CHANGED ORAL CARE DONE. TOLERATING GT FEEDING WELL , SUCTIONED W/ SMALL AMT.OBTAINED. LESS BLOODY AT THIS TIME. TOLERATING VENT SETTINGS WELL AC14 TV 450 FIO2 40 % PEEP OF 5. NO SXS OF RESPIRATORY DISTRESS NOTED. VSS.
[2019-07-31] MEDS: PIPERACILLIN/TAZO 3.375/DEX-IS 50 ML IV SCH ×3 (06:02→17:11)
--- NOTE | 2019-07-31 06:34 | NUR ---
NO SIGNIFICANT CHANGE IN CONDITION NOTED, BLEEDING TO TRACH AREA SCANTY AT THIS TIME. VSS.
[2019-07-31 06:45] LABS: BASOPHILS % (AUTO) 0.1 % (0.0-2.0); EOSINOPHILS # (AUTO) 0.4 K/uL (0.0-0.4); EOSINOPHILS % (AUTO) 4.3 % (0.0-4.0); HEMATOCRIT 30.7 % (36-54); HEMOGLOBIN 10.1 g/dL (14.0-18.0); LYMPHOCYTES # (AUTO) 0.4 K/uL (1.0-5.5); LYMPHOCYTES % (AUTO) 3.6 % (20.5-51.5); MEAN CORPUSCULAR HEMOGLOBIN 30 pg (27-31); MEAN CORPUSCULAR HGB CONC 33 % (32-36); MEAN CORPUSCULAR VOLUME 91 fL (79.0-98.0); MONOCYTES # (AUTO) 0.6 K/uL (0.0-1.0); MONOCYTES % (AUTO) 6.6 % (1.7-9.3); NEUTROPHILS # (AUTO) 8.3 K/uL (1.8-7.7); NEUTROPHILS % (AUTO) 85.4 % (40.0-70.0); PLATELET COUNT (AUTO) 217 K/uL (130-430); RED BLOOD CELL COUNT(AUTO) 3.38 MIL/uL (4.2-6.2); RED CELL DISTRIBUTION WIDTH 15.9 % (9.0-15.0); WHITE BLOOD COUNT (AUTO) 9.7 K/uL (4.8-10.8)
[2019-07-31 07:15] LABS: CALCIUM 8.1 mg/dL (8.4-11.0); CREATININE 1.37 mg/dL (0.55-1.30); POTASSIUM 3.2 mmol/L (3.5-5.1)
--- NOTE | 2019-07-31 07:17 | NUR ---
RECEIVED NURSING REPORT FROM PULP BLEACHERDEONTE DEVRISE R.N
--- NOTE | 2019-07-31 08:00 | NUR ---
SEE PATIENT, ORDERED GIVE KCL 40 MEQ VIA G-T X ONCE FOR POTASSIUM 3.2
[2019-07-31] MEDS ORDERED: ZOLPIDEM TARTRATE 5 MG TABLET PO PRN (08:15)
[2019-07-31] MEDS ORDERED: MAGNESIUM SULFATE 50 ML IV PRN (08:15)
[2019-07-31] MEDS ORDERED: MORPHINE 2 MG/ML INJ. SYRINGE IVP PRN (08:15)
[2019-07-31] MEDS ORDERED: ACETAMINOPHEN 325 MG TABLET PO PRN (08:15)
[2019-07-31] MEDS ORDERED: ONDANSETRON HCL 4 MG/2 ML VIAL IVP PRN (08:15)
[2019-07-31] MEDS ORDERED: DOCUSATE SODIUM 100 MG CAPSULE PO PRN (08:15)
[2019-07-31] MEDS ORDERED: MUPIROCIN 2% TOPICAL OINTMENT 22 GM NS PRN (08:15)
[2019-07-31] MEDS: NACL 0.9% 1,000 ML IV SCH (08:59)
[2019-07-31] MEDS: POLYETHYLENE GLYCOL 400 500 GM POWDER PO SCH (09:00)
[2019-07-31] MEDS: POTASSIUM CHLORIDE 20 MEQ TAB.PRT.SR PO PRN (09:00)
[2019-07-31] MEDS: levETIRAcetam 500 MG TABLET GT SCH ×2 (09:00→21:08)
[2019-07-31] MEDS: amLODIPine BESYLATE 10 MG TABLET GT SCH (09:00)
--- NOTE | 2019-07-31 09:28 | NUR ---
Case mgt: I called [facility] prior auth dept at [phone]--speaking with Maliha for urgent request for auth for [facility]--- RN
--- NOTE | 2019-07-31 10:09 | NUR ---
Case mgt: I spoke with Maliha at [facility] prior auth dept [phone]--press #love after initial message--use tax [id number]--Bccxlt says to have [facility] call them at that ph# immediately when ICU bed and transfer time known and they will fax the authorization to [facility] fax#[phone]--The ph#for [facility] is [phone]--Per Cleo at the transfer center, they might have an ICU bed tonight on javascript front end developer 7pm--call them to check for ICU bed-Use [employer] to arrange ACLS/CCT transport--[phone]--ICU nurse Antonina rascon--WAGNER KAYE Addendum: 07/31/19 at 1021 by Emeli Biswas RN Sudha GOETZ transfer order and MD [place] notes, H&P to [facility] auth dept [phone]
--- NOTE | 2019-07-31 16:07 | NUR ---
Dietitian Recommendations *Continue Jevity 1.5 at 50ml/hr and 200ml FWF Q6h *This provides 1800kcal, 77gPro, and 1712 ml of free water. *Meets 107%lower end of kcal and 96% upper end of protein estimated nutrition needs Please see Nutrition Assessment for further details. LT, RD
--- NOTE | 2019-07-31 18:52 | NUR ---
RECEIVED ABNORMAL LAB RESULT: SPUTUM PSEUDOMONAS AND ACINETOBACTER BAUMANNII, ORDERED ON CONTACT ISOLATION AND EDUCATION PATIENT,S PARENTS USE PPE AT BEDSIDE
--- NOTE | 2019-07-31 18:56 | NUR ---
Re: Transfer - contacted [facility] and spoke with Cleo. Cleo states no bed available. No authorization yet from insurance.
--- NOTE | 2019-07-31 19:12 | NUR ---
GIVE COMPLETE NURSING REPORT TO LIFE SKILLS INSTRUCTORDEONTE DEVRIES R.N
--- NOTE | 2019-07-31 20:00 | NUR ---
TRACH TO VENT. SUCTIONED WITH SCANT AMOUNT ON THIN RED-TINGED MUCUS OBTAINED. ORAL CARE GIVEN. GT FEEDING WITH JEVITY 1.2 AT 50CC/HR. RESIDUAL CHECK 0. GLASER CATH PATENT DRAINING CLEAR REDD URINE TO GRAVITY. ESTRELLA SCD'S IN PLACE. ESTRELLA FOOTDROP EVIDENT. ST. CONTACT ISOLATION OBSERVED. MOTHER AND FATHER AT BEDSIDE VISITING.
[2019-07-31] MEDS: ATORVASTATIN 20 MG TABLET GT SCH (21:08)
--- NOTE | 2019-07-31 22:00 | NUR ---
SUCTIONED. HS CARE DONE.
[2019-08-01] VITALS (31 sets, daily range): BP systolic 117–159
--- NOTE | 2019-08-01 | NUR ---
SUCTIONED. ORAL CARE DONE. RESIDUAL CHECK 0. TURNED. GT FLUSHED WITH 200CC H2O.
[2019-08-01] MEDS: PIPERACILLIN/TAZO 3.375/DEX-IS 50 ML IV SCH ×2 (00:04→05:54)
[2019-08-01] MEDS: NACL 0.9% 1,000 ML IV SCH (01:16)
--- NOTE | 2019-08-01 04:00 | NUR ---
1 LARGE PASTY GREENISH BROWN STOOL DEFECATED, CLEANED. MARCELA-CARE, GLASER CARE, BACK CARE, Z-GUARD APPLIED TO PERINEUM, SKIN CARE RENDERED. PARTIAL LINEN CHANGE. DOES NOT ASSIST WITH TURNING. AUDRA PROC WELL. SUCTIONED. ORAL CARE DONE. RESIDUAL CHECK 0.
--- NOTE | 2019-08-01 06:00 | NUR ---
SUCTIONED AND TURNED Q2 HRS AND PRN. UO GOOD. SUCTIONED MUCUS FROM TRACH STILL RED-TINGED. GT FLUSHED WITH 200CC H2O. REMAINS IN GUARDED CONDITION.
[2019-08-01 06:15] LABS: BASOPHILS % (AUTO) 0.2 % (0.0-2.0); EOSINOPHILS # (AUTO) 0.5 K/uL (0.0-0.4); EOSINOPHILS % (AUTO) 4.9 % (0.0-4.0); HEMOGLOBIN 10.7 g/dL (14.0-18.0); LYMPHOCYTES # (AUTO) 0.5 K/uL (1.0-5.5); LYMPHOCYTES % (AUTO) 5.6 % (20.5-51.5); MEAN CORPUSCULAR HEMOGLOBIN 30 pg (27-31); MEAN CORPUSCULAR HGB CONC 32 % (32-36); MEAN CORPUSCULAR VOLUME 92 fL (79.0-98.0); MONOCYTES # (AUTO) 0.6 K/uL (0.0-1.0); MONOCYTES % (AUTO) 6.2 % (1.7-9.3); NEUTROPHILS % (AUTO) 83.1 % (40.0-70.0); PLATELET COUNT (AUTO) 241 K/uL (130-430); RED CELL DISTRIBUTION WIDTH 16.3 % (9.0-15.0); WHITE BLOOD COUNT (AUTO) 9.6 K/uL (4.8-10.8)
[2019-08-01 06:23] LABS: CALCIUM 8.6 mg/dL (8.4-11.0); CREATININE 1.41 mg/dL (0.55-1.30); POTASSIUM 3.8 mmol/L (3.5-5.1)
--- NOTE | 2019-08-01 07:07 | NUR ---
RECEIVED NURSING REPORT FROM AMF MECHANICDEONTE DEVRIES R.N
[2019-08-01] MEDS: levETIRAcetam 500 MG TABLET GT SCH ×2 (08:46→21:31)
[2019-08-01] MEDS: amLODIPine BESYLATE 10 MG TABLET GT SCH (08:47)
--- NOTE | 2019-08-01 08:55 | NUR ---
DR. CONWAY SEE PATIENT, ORDERED CONSULT DR LAWRENCE
[2019-08-01] MEDS ORDERED: POLYETHYLENE GLYCOL 3350, 17 GM/ POWD.PACK PO ONE (09:30)
--- NOTE | 2019-08-01 10:12 | NUR ---
CONSULTATION PAGED PRIORITY: ROUTINE REASON FOR CONSULTATION?:MDRO PNA WAS CONSULT CALLED:Y PERSON WHO WAS NOTIFIED:PABLO CONSULTING PHYSICIAN:MALKA SERRATO GAS REVERSER SPECIALTY:ID GAS REVERSER PHONE NUMBER:[phone] REQUESTING PHYSICIAN:SHARLA AGUIRRE
--- NOTE | 2019-08-01 10:30 | NUR ---
SEE PATIENT, ORDERED FOLLOW UP CHEST X-RAY IN TOMORROW A.M
--- NOTE | 2019-08-01 11:30 | NUR ---
SEE PATIENT, AND SPOKE TO PATIENT,S MOM AT BEDSIDE, ORDERED START BACTRIM AND FORTAZ THERAPY
[2019-08-01] MEDS: ACETAMINOPHEN 325 MG TABLET PO PRN (11:37)
[2019-08-01] MEDS: 0.45% NACL 1,000 ML IV SCH (11:37)
[2019-08-01] MEDS: MORPHINE 2 MG/ML INJ. SYRINGE IVP PRN ×2 (13:15→18:56)
[2019-08-01] MEDS: CEFTAZIDIME 1 GM in D5W 50 ML IV SCH ×2 (13:16→21:31)
--- NOTE | 2019-08-01 18:06 | NUR ---
Spoke with Joshua with [facility] transfer center. They have an ICU bed avail, requesting auth # for transfer. Gave Joshua the Phone # for [employer] [phone] to get auth # directly from them.
--- NOTE | 2019-08-01 19:12 | NUR ---
GIVE COMPLETE NURSING REPORT TO INTERNATIONAL ACCOUNT REPRESENTATIVEDEONTE DEVRIES R.N
--- NOTE | 2019-08-01 20:00 | NUR ---
TRACH TO VENT. DOES NOT TRACT. SUCTIONED TRACH WIT MOD AMOUNT OF RED-TINGED MUCUS OBTAINED. ORAL CARE GIVEN. RESISTIVE TO ORAL CARE. GT FEEDING WITH JEVITY 1.2 AT 50CC/HR. RESIDUAL CHECK 0. GLASER CATH PATENT DRAINING CLEAR REDD URINE TO GRAVITY. CONTACT ISOLATION OBSERVED. PARENTS AT BEDSIDE VISITING.
[2019-08-01] MEDS: SULFAMET 800MG/TMP 160MG, 20 ML UDBTL GT SCH (21:30)
[2019-08-01] MEDS: ATORVASTATIN 20 MG TABLET GT SCH (21:31)
[2019-08-01] MEDS: LORazepam 2 MG/ML VIAL IVP PRN (22:30)
--- NOTE | 2019-08-01 22:30 | NUR ---
ATIVAN 1 MG IVP GIVEN FOR AGITATION. HS CARE DONE.
[2019-08-02] VITALS (34 sets, daily range): BP systolic 49–152
--- NOTE | 2019-08-02 | NUR ---
SUCTIONED. TURNED. ORAL CARE DONE. RESIDUAL CHECK 0, GT FLUSHED WITH 200CC H2O.
--- NOTE | 2019-08-02 04:00 | NUR ---
TYLENOL GR 10 GT GIVEN FOR TEMP 100.5, TEMPORAL ARTERY SCAN. MORPHINE 2 MG IVP GIVEN FOR GEN DISCOMFORT. ATIVAN 1 MG IVP GIVEN FOR AGITATION. CHG BATH GIVEN. ORAL CARE, BACK CARE, MARCELA-CARE, SKIN CARE DONE. PARTIAL LINEN CHANGE. DOES NOT ASSIST WITH TURNING. AUDRA PROC WELL.
[2019-08-02] MEDS: MORPHINE 2 MG/ML INJ. SYRINGE IVP PRN ×3 (04:06→18:12)
[2019-08-02] MEDS: LORazepam 2 MG/ML VIAL IVP PRN ×2 (04:06→12:17)
[2019-08-02] MEDS: ACETAMINOPHEN 325 MG TABLET PO PRN (04:07)
[2019-08-02 05:56] LABS: BASOPHILS % (AUTO) 0.4 % (0.0-2.0); EOSINOPHILS # (AUTO) 0.6 K/uL (0.0-0.4); HEMOGLOBIN 11.2 g/dL (14.0-18.0); LYMPHOCYTES # (AUTO) 0.9 K/uL (1.0-5.5); LYMPHOCYTES % (AUTO) 8.6 % (20.5-51.5); MEAN CORPUSCULAR HEMOGLOBIN 30 pg (27-31); MEAN CORPUSCULAR HGB CONC 33 % (32-36); MEAN CORPUSCULAR VOLUME 92 fL (79.0-98.0); MONOCYTES # (AUTO) 0.7 K/uL (0.0-1.0); MONOCYTES % (AUTO) 7.3 % (1.7-9.3); NEUTROPHILS # (AUTO) 7.8 K/uL (1.8-7.7); NEUTROPHILS % (AUTO) 77.7 % (40.0-70.0); PLATELET COUNT (AUTO) 287 K/uL (130-430); RED CELL DISTRIBUTION WIDTH 15.9 % (9.0-15.0)
--- NOTE | 2019-08-02 06:00 | NUR ---
UO GOOD. GT FLUSHED WITH 200CC H2O. REMAINS IN GUARDED CONDITION.
[2019-08-02] MEDS: CEFTAZIDIME 1 GM in D5W 50 ML IV SCH ×3 (06:16→22:15)
[2019-08-02 06:32] LABS: CALCIUM 9.4 mg/dL (8.4-11.0); CREATININE 1.31 mg/dL (0.55-1.30); POTASSIUM 3.7 mmol/L (3.5-5.1)
--- NOTE | 2019-08-02 07:13 | NUR ---
RECEIVED NURSING REPORT FROM LONG WALL SHEAR OPERATORDEONTE DEVRIES R.N
[2019-08-02] MEDS: SULFAMET 800MG/TMP 160MG, 20 ML UDBTL GT SCH ×2 (08:44→22:15)
[2019-08-02] MEDS: POLYETHYLENE GLYCOL 3350, 17 GM/ POWD.PACK PO SCH (08:44)
[2019-08-02] MEDS: levETIRAcetam 500 MG TABLET GT SCH ×2 (08:46→22:15)
[2019-08-02] MEDS: amLODIPine BESYLATE 10 MG TABLET GT SCH (08:46)
--- NOTE | 2019-08-02 10:10 | NUR ---
[facility] Transfer center Joshua [phone] called for update. Asking how often we are changing the trach dressing and what color is the drainage. Asking for the H/H and said it is trending upward. They said they have no beds avail and we should try other hospitals. Called Carlos, no answer and no mesasge left x two. Called Isela in discharge planning and asked her to give Carlos our CM the message to try another hospital. She said she would relay the message.
--- NOTE | 2019-08-02 10:13 | NUR ---
DR. CHEN SEE PATIENT
[2019-08-02] MEDS: 0.45% NACL 1,000 ML IV SCH (10:30)
--- NOTE | 2019-08-02 16:02 | NUR ---
SS NOTES/DCP: Pt is non-verbal, information received from sister Josef. Pt is a resident at [facility] since 2016 after a stroke. Pt is dependent on all ADL's. Pt does not have an advanced directive but sister makes medical decisions for him. Pt has parents that primarily live in [place] and speaks Mandarin only. Pt is not conserved. Sister is verbalizing frustrations, that the transfer to [facility] is taking too long. PHARMACIST AIDE explained to sister the process, sister understood. Per sister, the MD and nurses are communicating well with her. When discharge, the sister prefers for brother to go somewhere else, but refuses to look or check other facilities. Sister also verbalizing that [facility] is what's ideal for him due to the distance the SNF is from her residence. PHARMACIST AIDE provided sister with SS phone number and encouraged to ask the nurses for updates in terms of his transfer. SS will remain available for resources and support.
--- NOTE | 2019-08-02 17:20 | NUR ---
[facility] Transfer Center [facility] [phone] called back for update. No beds available. She suggested we try other hospitals.
--- NOTE | 2019-08-02 19:12 | NUR ---
GIVE COMPLETE NURSING REPORT TO LAND LEASING INFORMATION CLERKDEONTE DEVRIES R.N
--- NOTE | 2019-08-02 20:00 | NUR ---
TRACH TO VENT. SUCTIONED WITH MOD AMOUNT OF THICK WHITE MUCUS OBTAINED. ORAL CARE GIVEN. GT FEEDING WITH JEVITY 1.5 AT 50CC/HR. RESIDUAL CHECK 0. GLASER CATH PATENT DRAINING CLOUDY YELLOW URINE TO GRAVITY. ESTRELLA SCD'S IN PLACE. SINUS TACH. CONTACT ISOLATION OBSERVED. PARENTS AT BEDSIDE VISITING.
--- NOTE | 2019-08-02 22:00 | NUR ---
OPENS EYES SPON. DOES NOT TRACT. HS CARE GIVEN.
[2019-08-02] MEDS: ATORVASTATIN 20 MG TABLET GT SCH (22:15)
[2019-08-03] VITALS (35 sets, daily range): BP systolic 113–160
--- NOTE | 2019-08-03 | NUR ---
SUCTIONED. ORAL CARE GIVEN . TURNED. RESIDUAL CHECK 0. Addendum: 08/03/19 at 0345 by Trever Chua RN GT FLUSHED WITH 200CC H2O.
--- NOTE | 2019-08-03 03:00 | NUR ---
HR 146. TYLENOL GR X GIVEN FOR TEMP 100.5, TEMPORAL ARTERY SCAN. MORPHINE 2 MG IVP GIVEN FOR GEN DISCOMFORT. ATIVAN 1 MG GIVEN FOR AGITATION.
[2019-08-03] MEDS: LORazepam 2 MG/ML VIAL IVP PRN ×2 (03:19→06:57)
[2019-08-03] MEDS: ACETAMINOPHEN 325 MG TABLET PO PRN (03:20)
[2019-08-03] MEDS: MORPHINE 2 MG/ML INJ. SYRINGE IVP PRN ×2 (03:20→06:57)
[2019-08-03] MEDS: CEFTAZIDIME 1 GM in D5W 50 ML IV SCH ×2 (05:50→13:00)
[2019-08-03 06:49] LABS: BASOPHILS # (AUTO) 0.1 K/uL (0.0-0.2); BASOPHILS % (AUTO) 0.8 % (0.0-2.0); EOSINOPHILS # (AUTO) 0.2 K/uL (0.0-0.4); EOSINOPHILS % (AUTO) 1.5 % (0.0-4.0); HEMATOCRIT 37.3 % (36-54); HEMOGLOBIN 12.1 g/dL (14.0-18.0); LYMPHOCYTES # (AUTO) 1.4 K/uL (1.0-5.5); LYMPHOCYTES % (AUTO) 12.8 % (20.5-51.5); MEAN CORPUSCULAR HEMOGLOBIN 29 pg (27-31); MEAN CORPUSCULAR HGB CONC 32 % (32-36); MEAN CORPUSCULAR VOLUME 91 fL (79.0-98.0); MONOCYTES # (AUTO) 0.4 K/uL (0.0-1.0); MONOCYTES % (AUTO) 3.9 % (1.7-9.3); NEUTROPHILS # (AUTO) 8.7 K/uL (1.8-7.7); PLATELET COUNT (AUTO) 339 K/uL (130-430); RED CELL DISTRIBUTION WIDTH 16.2 % (9.0-15.0); WHITE BLOOD COUNT (AUTO) 10.7 K/uL (4.8-10.8)
[2019-08-03 07:28] LABS: CALCIUM 9.4 mg/dL (8.4-11.0); CREATININE 1.42 mg/dL (0.55-1.30); POTASSIUM 3.3 mmol/L (3.5-5.1)
--- NOTE | 2019-08-03 07:30 | NUR ---
AT 0713 A.M,RECEIVED NURSING REPORT FROM NEEDLE VALVE OPERATOR JAYCOB Lantigua, PATIENT IS AWAKE, H.R [phone], AFTER BED BATH, B.P 150/99 MMMHG, PAGE , WAITING FOR DOCTOR CALL BACK
--- NOTE | 2019-08-03 07:35 | NUR ---
ORDERED GIVE LOPRESSOR 5 MG IVP X ONCE AND CONSULT DR. BOWEN
[2019-08-03] MEDS ORDERED: METOPROLOL TARTRATE 5 MG/5 ML VIAL IVP ONE (07:45)
[2019-08-03] MEDS ORDERED: METOPROLOL TARTRATE 5 MG/5 ML VIAL ONE (07:56)
--- NOTE | 2019-08-03 08:20 | NUR ---
DR. BOWEN SEE PATIENT, ORDERED FOLLOW UP 12 LEADS EKG AND 2 D ECHO CARDIOGRAM
[2019-08-03] MEDS ORDERED: METOPROLOL TARTRATE 50 MG TABLET GT ONE (09:00)
--- NOTE | 2019-08-03 09:15 | NUR ---
FINISHED 12 LEADS EKG AT BEDSIDE, RESULT IS SINUS TACHYCARDIA
[2019-08-03] MEDS: levETIRAcetam 500 MG TABLET GT SCH (09:34)
[2019-08-03] MEDS: SULFAMET 800MG/TMP 160MG, 20 ML UDBTL GT SCH (09:34)
[2019-08-03] MEDS: POLYETHYLENE GLYCOL 3350, 17 GM/ POWD.PACK PO SCH (09:35)
[2019-08-03] MEDS: 0.45% NACL 1,000 ML IV SCH (09:35)
[2019-08-03] MEDS: POTASSIUM CHLORIDE 20 MEQ TAB.PRT.SR PO PRN (09:35)
[2019-08-03] MEDS: amLODIPine BESYLATE 10 MG TABLET GT SCH (09:35)
[2019-08-03] MEDS ORDERED: POTASSIUM CHLORIDE 20 MEQ/PKT PACKET GT ONE (09:45)
--- NOTE | 2019-08-03 10:40 | NUR ---
PATIENT IS NEGATIVE TRACH SITE BLEEDING SINCE YESTERDAY AFTERNOON, DR. CONWAY SEE PATIENT AND UPDATED PATIENT,S CONDITION WITH FAMILIES AT BEDSIDE, PATIENT,S FAMILY REQUESTED TRANSFER BACK TO [facility] TOMORROW /WHEN PATIENT IS CONDITION STABLE( FOR INSURANCE ISSUE, AND THE [facility] HOLD BED UNTIL THIS THURSDAY), VERBALIZED: O.K TRANSFER PATIENT BACK TO [facility] TOMORROW, ALSO HE TOLD THE FAMILY , HE WILL REMINDING [facility] TRANSFER PATIENT TO [facility] / IF PATIENT HAS TRACHEOSTOMY BLEEDING AGAIN
--- NOTE | 2019-08-03 12:29 | NUR ---
DC Planning: Per Shanice, ICU director, she s/w with dr. Sheffield that the pt is no longer need to transfer to higher level of care and per the md. progress note: " We've trying to send Pt to higher level of care as he needed to be seen by ENT. However, in the last 2 days, the trach site bleeding is reduced and nearly resolved today."I examined with RN and the family present at bedside today. Family requesting to transfer Pt back to [facility], but he's tachycardic today (150s), so he's not stable to be dc'd yet.
--- NOTE | 2019-08-03 13:40 | NUR ---
Nutrition F/U RD reviewed pt's current EMR record including diet Hx, physician notes, nursing notes, pertinent labs/meds/procedures, care trends, and care activity. Admission Dx: Tracheostomy bleed PMH: dysphagia, CVA, chronic respiratory failure, DLD, COPD, seizures, HTN per physician notes. Upon admission, pt was found with moderate malnutrition per physician notes. Transfer pending to high level of care for ENT evaluation per physician notes. Pt also noted note stable to transfer to SNF d/t tachycardia per EMR. Current Diet Order/Nutrition Support: Jevity 1.5 at 50 ml/hr, Free Water Flush: 200 via GT x4 days Subjective Info: Pt seen resting in bed, trach to vent w/ TF infusing as per physician order and family/friend at bedside. RN reported that pt has been tolerating TF well, and receiving water flush of 200 ml Q6h as per LUISANA order -- this is not clarified in diet order. RD to modify TF water flush order to accurately reflect current physician orders. No pending plans/procedures per RN report. Skin Integrity Comment: James Score: 13 No problems identified per nursing note. Estimated Energy Expenditure (kcals/day) 1675-2010kcal/day (25-30kcal/kg based on IBW for adult maintenance) Estimated Protein Required (g/day) 67-80g/day (1-1.2/kg based on IBW for adult maintenance/chronic Dz) Estimated Fluid Required (l/day) 1.7-2.0L/day based on IBW for maintenance Problem/Etiology/Signs/Symptoms Swallowing difficulty related to dysphagia as evidenced by need for enteral feeding to meet nutrition needs. *ongoing Expected Outcomes/Goals Monitor EN regimen w/ goal of pt meeting at least 75% of estimated nutritional needs, labs trending WNL, normal GI function, and skin integrity/wt maintenance Dietitian Recommendations * Recommend Jevity 1.5 at 50 ml/hr, Free Water Flush: 200 ml Q6h via GT Provides: 1800 kcal/day, 77 gm protein/day, and 1712 ml free water/day Meets: 107% lower end of estimated caloric needs and 96% upper end of estimated protein needs Follow Up Moderate Risk: F/U in 3-5 days
[2019-08-03] MEDS: LevALBUTEROL HCL 1.25 MG/0.5 ML *CONC.* VIAL.NEB (XOPENEX CONC.) INH SCH ×2 (13:42→19:30)
--- NOTE | 2019-08-03 13:45 | NUR ---
Dietitian Recommendations * Recommend Jevity 1.5 at 50 ml/hr, Free Water Flush: 200 ml Q6h via GT Provides: 1800 kcal/day, 77 gm protein/day, and 1712 ml free water/day Meets: 107% lower end of estimated caloric needs and 96% upper end of estimated protein needs LP, RD Please refer to Nutrition F/U for details.
[2019-08-03] MEDS ORDERED: NOREPINEPHRINE 4 MG/4 ML VIAL IV ONE (18:37)
--- NOTE | 2019-08-03 19:38 | NUR ---
GIVE COMPLETE NURSING REPORT TO ASPHALT RAKERDEONTE DEVRIES R.N
--- NOTE | 2019-08-03 20:04 | NUR ---
ASSUME CARE @1940 PATIENT FAMILY AT BEDSIDE DURING ASSESSMENT. PLAN OF CARE AWARE OF PATIENT TRANSFERRING TO [facility] AFTER ALL PROCEDURES ARE COMPLETED,. TRACK TO VENT. NO BLEEDING NOTED TO SITE AT THIS TIME. HOB UP 30 DEGREES FOR COMFORT. GT INTACT PATENT , CHECKED RESIDUAL BY ASPIRATING GASTRIC CONTENT W/ 15 CC . RETURNED BACK. W/ ACTIVE BOWEL SOUNDS. VSS . WE'LL CONTINUE TO MONITOR.
[2019-08-04] VITALS (34 sets, daily range): BP systolic 97–143
--- NOTE | 2019-08-04 | NUR ---
HOB UP 35 DEGREES FOR COMFORT. GT INTACT PATENT. NO RESIDUAL NOTED AT THIS TIME. TOLERATING FEEDING WELL W/ JEVITY 1.5 AT 50CC/H. FLUSH W/ 200CC OF H20.TRACHEAL SUCTIONING DONE W/ SMALL AMT. OF PALE YELLOW SECRETIONS OBTAINED. ORAL CARE DONE. REPOSITIONED FOR COMFORT, VSS.
[2019-08-04] MEDS: LevALBUTEROL HCL 1.25 MG/0.5 ML *CONC.* VIAL.NEB (XOPENEX CONC.) INH SCH ×4 (01:42→20:33)
--- NOTE | 2019-08-04 02:00 | NUR ---
PATIENT SLEEPING AT THIS TIME. VSS
--- NOTE | 2019-08-04 04:00 | NUR ---
COMPLETE CHG BATH GIVEN AT THIS TIME .DRESSING CHANGE TO GT-SITE DONE NO DRAINAGE NOTED . TOLERATING FEEDING WELL, NO RESIDUAL NOTED AT THIS TIME. ORAL CARE DONE. PERINEAL CARE,F/C , BACK CARE DONE. Z-GUARD APPLIED TO COCCYX AND BUTTOCKS TO MAINTAIN GOOD SKIN INTEGRITY. REPOSITIONED FOR COMFORT . NO SXS OF PAIN NOTED . ALL NEEDS ANTICIPATED MUCH POSSIBLE. VSS.
[2019-08-04] MEDS: SULFAMET 800MG/TMP 160MG, 20 ML UDBTL GT SCH ×3 (05:11→20:34)
[2019-08-04] MEDS: levETIRAcetam 500 MG TABLET GT SCH ×3 (05:11→20:33)
[2019-08-04] MEDS: ATORVASTATIN 20 MG TABLET GT SCH ×2 (05:12→20:33)
[2019-08-04] MEDS: METOPROLOL TARTRATE 50 MG TABLET GT SCH ×3 (05:15→20:33)
[2019-08-04] MEDS: CEFTAZIDIME 1 GM in D5W 50 ML IV SCH ×4 (05:17→21:07)
--- NOTE | 2019-08-04 06:00 | NUR ---
NO RESPIRATORY DISTRESS NOTED AT THIS TIME. SUCTIONED W/ SMALL AMT OF TRACHEAL SECRETIONS OBTAINED .HAD GOOD URINE OUTPUT CLEAR LIGHT YELLOW. GT FEEDING TOLERATING WELL. NO SIGNIFICANT CHANGE IN CONDITION NOTED .WE'LL ENDORSE TO AM RN W/ VSS.
[2019-08-04 06:46] LABS: CALCIUM 9.9 mg/dL (8.4-11.0); CREATININE 1.58 mg/dL (0.55-1.30)
[2019-08-04 06:59] LABS: BASOPHILS % (AUTO) 0.3 % (0.0-2.0); EOSINOPHILS # (AUTO) 0.4 K/uL (0.0-0.4); HEMOGLOBIN 12.5 g/dL (14.0-18.0); LYMPHOCYTES # (AUTO) 1.4 K/uL (1.0-5.5); LYMPHOCYTES % (AUTO) 13.8 % (20.5-51.5); MEAN CORPUSCULAR HEMOGLOBIN 30 pg (27-31); MEAN CORPUSCULAR HGB CONC 33 % (32-36); MEAN CORPUSCULAR VOLUME 92 fL (79.0-98.0); MONOCYTES # (AUTO) 0.7 K/uL (0.0-1.0); MONOCYTES % (AUTO) 6.8 % (1.7-9.3); NEUTROPHILS # (AUTO) 7.8 K/uL (1.8-7.7); NEUTROPHILS % (AUTO) 75.1 % (40.0-70.0); PLATELET COUNT (AUTO) 303 K/uL (130-430); RED BLOOD CELL COUNT(AUTO) 4.13 MIL/uL (4.2-6.2); RED CELL DISTRIBUTION WIDTH 16.2 % (9.0-15.0); WHITE BLOOD COUNT (AUTO) 10.4 K/uL (4.8-10.8)
--- NOTE | 2019-08-04 07:00 | NUR ---
Shift report received from sirena Perera using SBAR.
--- NOTE | 2019-08-04 08:00 | NUR ---
Oral care provided. Pt tolerated well.
[2019-08-04] MEDS: amLODIPine BESYLATE 10 MG TABLET GT SCH (08:19)
[2019-08-04] MEDS: POLYETHYLENE GLYCOL 3350, 17 GM/ POWD.PACK PO SCH (08:19)
--- NOTE | 2019-08-04 08:30 | NUR ---
AM ASSESSMENT PT resting with no signs of distress. Seizure pads in place in upper side rails. Low air loss air mattress on with bilateral SCD on. Bed locked and in lowest position with call light in place. PT sinus tachy >135bpm, will relay information to Dr Avalos. Will continue to monitor.
[2019-08-04] MEDS ORDERED: DILTIAZEM HCL 60 MG TABLET PO ONE (08:45)
--- NOTE | 2019-08-04 09:00 | NUR ---
MD ROUNDS Dr Robbie Domingo. Orders received for Cardisam.
[2019-08-04] MEDS: DILTIAZEM HCL 60 MG TABLET PO SCH ×3 (11:27→21:08)
--- NOTE | 2019-08-04 12:15 | NUR ---
Oral care provided. Pt tolerated well.
--- NOTE | 2019-08-04 15:07 | NUR ---
Discharge Planning: [facility] faxed pt referral to Harrison Hanson (f [phone] p [phone]) [facility] to follow up Addendum: 08/04/19 at 1723 by Isela Martines DP [facility] arranged transportation with [employer] [phone] pickle pumper between 6-10pm trip was cancelled due Harrison Hanson RN would not take patient due to isolation. [facility] made Tl aware of isolation prior to setting up discharge. [facility] spoke to ICU charge making her aware if the isolation was colonized patient could return. ICU charge called [facility] stated doctor stated patient iso colonized. [facility] set up transportation with [employer] [phone] pickle pumper 9pm by [employer] trip# [id number] per [place], [facility] made ICU charge aware. Addendum: 08/04/19 at 1726 by Isela Martines DP Patient going to Room 29
--- NOTE | 2019-08-04 16:00 | NUR ---
Spoke to Harrison Olguin RN. During report informed her that the pt is under contact precaution. Clau stated she did not know pt is under contact precautions stated she will call back after speaking with their quality control coordinator.
--- NOTE | 2019-08-04 16:30 | NUR ---
Oral care provided. Pt tolerated well.
--- NOTE | 2019-08-04 16:44 | NUR ---
Dr. Sheffield returned call, informed about status of transfer for patient. Dr. Sheffield states "Patient does not need to be in isolation. He is colonized." New orders made. Informed Isela CHAHAL and RN at [facility].
--- NOTE | 2019-08-04 19:15 | NUR ---
PM SHIFT ASSESSMENT Pt is awake, responds to painful stimuli. Pt is trach to vent, tolerating current vent settings. ST on monitor. Skin warm and dry. IVF infusing, no signs of infiltration. Gtube in place, tubefeeding infusing. Chew catheter noted and draining to gravity. Family at bedside. Safety precautions in place, call light within reach. Will continue to monitor.
--- NOTE | 2019-08-04 19:20 | NUR ---
Endorsement given to night RN using SBAR. Pt resting with no signs of pain or distress. Family bedside ready for transport.
[2019-08-04] MEDS: ACETAMINOPHEN 325 MG TABLET PO PRN (21:08)
--- NOTE | 2019-08-04 21:55 | NUR ---
[facility] Report given to [facility] ton container filler. Transfer packet with Transfer Orders and Medication Reconciliation form given to EMT with report. Exitcare provided. [facility] ID band removed, replaced with ID band with pt's name and . All belongings sent with patient. Patient's family here at time of transfer. VSS. Patient left floor via gurney escorted by EMT in no distress.
== END 2019-08-04 21:55 | DRG 130 ==
LOC: SED 21:19 → SIC 07-29 01:26
PROVIDERS: ADMIT General Practice; ATTEND General Practice
PROC: 0BJ08ZZ Inspection of Tracheobronchial Tree, Via Natural or Artificial Opening Endoscopic (ICD-10-PCS; 2019-07-29)
PROC: 0B21XFZ Change Tracheostomy Device in Trachea, External Approach (ICD-10-PCS; 2019-07-29)
PROC: 5A1955Z Respiratory Ventilation, Greater than 96 Consecutive Hours (ICD-10-PCS; principal; 2019-07-29 15:30)
DX: J95.03 Malfunction of tracheostomy stoma (principal); J69.0 Pneumonitis due to inhalation of food and vomit; J15.1 Pneumonia due to Pseudomonas; J15.8 Pneumonia due to other specified bacteria; E44.0 Moderate protein-calorie malnutrition; J96.10 Chronic respiratory failure, unspecified whether with hypoxia or hypercapnia; R13.10 Dysphagia, unspecified; N31.9 Neuromuscular dysfunction of bladder, unspecified; J95.01 Hemorrhage from tracheostomy stoma; Z99.11 Dependence on respirator [ventilator] status; I10 Essential (primary) hypertension; E78.5 Hyperlipidemia, unspecified; E87.6 Hypokalemia; G40.909 Epilepsy, unspecified, not intractable, without status epilepticus; J44.0 Chronic obstructive pulmonary disease with (acute) lower respiratory infection; Y83.8 Other surgical procedures as the cause of abnormal reaction of the patient, or of later complication, without mention of misadventure at the time of the procedure; Z16.24 Resistance to multiple antibiotics; R04.2 Hemoptysis; D64.9 Anemia, unspecified; Z68.34 Body mass index [BMI] 34.0-34.9, adult; Z79.899 Other long term (current) drug therapy; Z87.891 Personal history of nicotine dependence; Z78.9 Other specified health status; Z74.01 Bed confinement status; Y92.89 Other specified places as the place of occurrence of the external cause
CPT/HCPCS: 31625; 36415; 36600; 70491-TC; 71045; 71260-TC; 80048; 80053; 80202-TC; 82803-TC; 83036; 83605; 83735-TC; 83880; 84484; 85025; 85610-TC; 85730-TC; 86710; 86886; 86900; 86901; 87040-TC; 87070-TC; 87081; 87186-TC; 87205-TC; 93005; 93306; 94002; 94003; 94640; 96365; 96366; 96367; 99291; J0456; J0713; J2001; J2060; J2250; J2270; J2543; J3010; J3370; J3490; J7030; J7040; J7060; J7612; Q9967

== ENCOUNTER 2020-04-02 23:47 | Inpatient (IN) | payer MEDICAID, SELFPAY ==
[~2020-04-02] VITALS: Ht 182.9 cm; Wt 93.0 kg
[~2020-04-02 23:47] MED LIST changes: -CLON0.2T GT; +LIP20 GT; -OMEG-158 GT; +POLY119P2 GT; +TRI48 GT; +UTI-STAT GT; -[UNRECOGNIZED DRUG - CODE] OP
[2020-04-02 23:50] VITALS: BP_SYST 76
--- NOTE | 2020-04-02 23:50 | NUR ---
Placed in room 6 . Placed on playground monitor, blood pressure machine and pulse oximeter. To gown for exam. Side rails up. Report given to Rip KAYE.
--- NOTE | 2020-04-03 | NUR ---
PT PRESENTS BLS FROM [facility] FOR DECREASED BP (88/58) AND TACHYCARDIA (132) AND ABNORMAL LAB VALUES. PT HAS A TRACH, G-TUBE AND GLASER CATH UPON ARRIVAL. PT WAS STARTED ON CEFTAZIDINE 2GM QDAY X 10 DAYS AND TOBRAMYCIN 160MG IV Q DAY X 10 DAYS STARTED TODAY FOR DX UROSEPSIS. PT IS NONVERBAL BUT OPENS EYES. RT CALLED FOR VENT.
--- NOTE | 2020-04-03 | NUR ---
ARRIVES WITH 24G TO RIGHT HAND, PATENT. FLUSHED WITH 10ML NS WITHOUT RESISTANCE.
--- NOTE | 2020-04-03 00:10 | NUR ---
ER DR. TOLEDO AT THE BEDSIDE EVALUATING PT
[2020-04-03] MEDS ORDERED: NS 500 ML IV ONE ×2 (00:15→01:30)
--- NOTE | 2020-04-03 00:30 | NUR ---
COVID AND MRSA SWABS DONE AND SENT TO LAB
--- NOTE | 2020-04-03 00:44 | NUR ---
PORTABLE X-RAY AT THE BEDSIDE
--- NOTE | 2020-04-03 00:45 | NUR ---
# 16 FR Dumont catheter with use of sterile technique. Immediate return of 10 cc CLEAR YELLOW urine noted. Bedside drainage bag placed below level of bladder. Urine sample collected and sent to lab. Pt tolerated procedure WELL. Patient arrived with dumont in place, changed due to standard of practice prior to admission. Patient unable to toilet self.
[2020-04-03 00:54] LABS: HEMOGLOBIN 10.4 g/dL (14.0-18.0); LYMPHOCYTES # (AUTO) 0.8 K/uL (1.0-5.5); MONOCYTES # (AUTO) 1.1 K/uL (0.0-1.0); RED CELL DISTRIBUTION WIDTH 14.9 % (9.0-15.0)
--- NOTE | 2020-04-03 00:55 | NUR ---
URINE SAMPLE COLLECTED AND SENT TO LAB
[2020-04-03 01:03] LABS: BASOPHILS % (AUTO) 0.3 % (0.0-2.0); CREATININE 5.48 mg/dL (0.55-1.30); EOSINOPHILS # (AUTO) 0.2 K/uL (0.0-0.4); EOSINOPHILS % (AUTO) 1.1 % (0.0-4.0); HEMATOCRIT 31.8 % (36-54); LYMPHOCYTES % (AUTO) 5.2 % (20.5-51.5); MEAN CORPUSCULAR HEMOGLOBIN 31 pg (27-31); MEAN CORPUSCULAR HGB CONC 33 % (32-36); MEAN CORPUSCULAR VOLUME 95 fL (79.0-98.0); MONOCYTES % (AUTO) 7.1 % (1.7-9.3); NEUTROPHILS # (AUTO) 13.8 K/uL (1.8-7.7); NEUTROPHILS % (AUTO) 86.3 % (40.0-70.0); PLATELET COUNT (AUTO) 176 K/uL (130-430); RED BLOOD CELL COUNT(AUTO) 3.33 MIL/uL (4.2-6.2)
[2020-04-03] MEDS ORDERED: MULT-1117 GT (01:04)
[2020-04-03] MEDS ORDERED: TOBRAMYCIN SULFATE IV (01:04)
[2020-04-03] MEDS ORDERED: CAT.2 GT (01:04)
[2020-04-03] MEDS ORDERED: CEFT2PIG5 IV (01:04)
[2020-04-03] MEDS ORDERED: LISI-600 GT (01:04)
[2020-04-03 01:05] LABS: BILIRUBIN,URINE NEGATIVE (NEGATIVE); BLOOD, URINE 3+ (NEGATIVE); CLARITY/URINE TURBID (CLEAR); COLOR,URINE YELLOW (YELLOW); GLUCOSE,URINE NEGATIVE (NEGATIVE); KETONES,URINE TRACE (NEGATIVE); LEUKOCYTE ESTERASE ,URINE 2+ (NEGATIVE); NITRITE, URINE NEGATIVE (NEGATIVE); PROTEIN URINE 3+ (NEGATIVE); UROBILINOGEN,URINE 0.2 (0.2-1.0)
[2020-04-03] MEDS ORDERED: ASCO500T20 GT (01:06)
[2020-04-03 01:07] LABS: INR 1.2 (0.80-1.20)
[2020-04-03 01:09] LABS: ALBUMIN 2.4 g/dL (3.4-4.8); TOTAL BILIRUBIN 0.6 mg/dL (0.0-1.0)
[2020-04-03] MEDS ORDERED: REGULAR INSULIN SQ (01:15)
--- NOTE | 2020-04-03 01:15 | NUR ---
Medication reconciliation completed with information provided by Harrison Hanson. Any prior medication reconciliation on file was reviewed and corrected.
[2020-04-03 01:28] LABS: BACTERIA,URINE MODERATE /HPF (None Seen); RBC,URINE 50-80 /HPF (0-3); WBC,URINE 20-50 /HPF (0-3)
[2020-04-03] MEDS ORDERED: KCL 20 mEq in 100 mL (PREMIX) 100 ML IV ONE (01:45)
[2020-04-03] MEDS ORDERED: POTASSIUM CHLORIDE 20 MEQ/PKT PACKET PO ONE (01:45)
--- NOTE | 2020-04-03 01:52 | NUR ---
RECEIVED ADMIT ORDERS FROM DR. BARRIOS.
--- NOTE | 2020-04-03 01:54 | NUR ---
SPOKE WITH FARTUN OCASIO RN TO REQUEST TELE BED.
[2020-04-03] MEDS: NACL 0.9% 1,000 ML IV SCH ×3 (02:22→22:00)
--- NOTE | 2020-04-03 03:00 | NUR ---
RT NOTES PT TRANSFERRED TO ROOM 107 WITHOUT INCIDENT. PT REMAIN ON VENT WITH SETTINGS OF AC14/450/+5/40% VENT AND APNEA ALARMS SET AND FUNCTIONING. SUCTION PT PRN FOR SMALL TO MODERATE AMOUNT OF SECRETIONS. TRACH TUBE IS MIDLINE AND SECURE. BILATERAL CHEST RISE PRESENT. BS SCATTERED RONCHI THROUGHOUT. NO RESP DISTRESS NOTED. AMBUBAG IS AT BEDSIDE.
--- NOTE | 2020-04-03 03:11 | NUR ---
Patient will be admitted to care of DR. BARRIOS. Admitted to TELE unit. Will go to room 107A. Belongings list completed. Complete and up to date summary report printed. SBAR report to be given at bedside with opportunity for questions.
[2020-04-03] MEDS ORDERED: PIPERACILLIN/TAZO 3.375/DEX-IS 50 ML IV ONE (03:30)
[2020-04-03] MEDS ORDERED: PIPERACILLIN/TAZOBACTAM 3.375 GM/VIAL (ZOSYN) IV ONE ×2 (03:46→05:48)
--- NOTE | 2020-04-03 03:51 | NUR ---
ADMISSION NOTE Received patient from ER via jace, received report from VARGAS kunz. Patient admitted with diagnosis of sepsis, uti. Patient oriented to hospital routine, call light, toileting and safety-patient verbalized understanding.
--- NOTE | 2020-04-03 03:55 | NUR ---
Opening notes Patient is resting in bed, no signs of distress noted. Breathing even and unlabored on vent settings: AC 14. Tidal volume 450 ml. FiO2 40%. PEEP 5. Chew catheter noted with blood tinged urine, per ER, patient did not come in with blood in urine. IV to right hand 24 gauge. No signs of infiltration noted. G-tube noted. Discoloration noted on sacral/buttocks area. Pictures taken and placed in chart. No needs. Seirzure precautions in place. Call light with the patient. Safety precautions in place.
[2020-04-03 04:07] VITALS: BP_SYST 128
[2020-04-03 05:42] VITALS: BP_SYST 128
[2020-04-03] MEDS ORDERED: PIPERACILLIN/TAZO 3.375/DEX-IS 50 ML IV SCH (06:00)
[2020-04-03] MEDS ORDERED: ALBUTEROL SULFATE 0.083% 2.5 MG/3 ML VIAL.NEB INH PRN (06:00)
[2020-04-03] MEDS ORDERED: IPRATROPIUM BROM 0.5 MG/2.5 ML VIAL.NEB (ATROVENT) INH PRN (06:00)
[2020-04-03] MEDS: PIPERACILLIN/TAZO 3.375 GM in NS 50 ML IV SCH ×3 (06:32→17:28)
--- NOTE | 2020-04-03 06:35 | NUR ---
Closing notes/Removed Clonidine patch Patient is resting in bed, no signs of distress noted. Breathing even and and unlabored, tolerating current vent settings. AC 14 Tidal volume 450 ml. Fio2 40%. PEEP 5. IV patent and intact, no signs of infiltration noted. Chew catheter in place, with blood tinged urine noted. Patient noted with Clonidine patch. Patch was removed due to patient being admitted for low BP. Charge nurse aware. All needs met throughout the shift. Call light with the patient. Safety precautions in place. will endorse care to day shift RN.
--- NOTE | 2020-04-03 06:50 | NUR ---
RENAL CONSULTATION PAGED REASON FOR CONSULTATION:RENAL FAILURE WAS CONSULT CALLED?Y PERSON WHO WAS NOTIFIED:PAULINE CONSULTING PHYSICIAN:STEPHEN MCKNIGHT DIRECTOR FIELD SERVICES SPECIALTY:NEPHRO DIRECTOR FIELD SERVICES PHONE NUMBER:[phone] REQUESTING PHYSICIAN:KLAUS CALZADA
[2020-04-03] MEDS: ALBUTEROL SULFATE 0.083% 2.5 MG/3 ML VIAL.NEB INH SCH ×5 (07:23→23:00)
[2020-04-03] MEDS: IPRATROPIUM BROM 0.5 MG/2.5 ML VIAL.NEB (ATROVENT) INH SCH ×5 (07:24→23:00)
[2020-04-03 07:47] LABS: CALCIUM 9.8 mg/dL (8.4-11.0); CREATININE 5.29 mg/dL (0.55-1.30); POTASSIUM 3.3 mmol/L (3.5-5.1)
[2020-04-03 07:53] LABS: ALBUMIN 2.2 g/dL (3.4-4.8); TOTAL BILIRUBIN 0.5 mg/dL (0.0-1.0)
[2020-04-03 08:00] VITALS: BP_SYST 113
[2020-04-03 08:00] LABS: BASOPHILS % (AUTO) 0.2 % (0.0-2.0); EOSINOPHILS # (AUTO) 0.1 K/uL (0.0-0.4); EOSINOPHILS % (AUTO) 1.1 % (0.0-4.0); HEMATOCRIT 28.8 % (36-54); HEMOGLOBIN 9.4 g/dL (14.0-18.0); LYMPHOCYTES # (AUTO) 0.7 K/uL (1.0-5.5); LYMPHOCYTES % (AUTO) 5.7 % (20.5-51.5); MEAN CORPUSCULAR HEMOGLOBIN 31 pg (27-31); MEAN CORPUSCULAR HGB CONC 33 % (32-36); MEAN CORPUSCULAR VOLUME 95 fL (79.0-98.0); MONOCYTES # (AUTO) 0.8 K/uL (0.0-1.0); MONOCYTES % (AUTO) 6.3 % (1.7-9.3); NEUTROPHILS % (AUTO) 86.7 % (40.0-70.0); PLATELET COUNT (AUTO) 159 K/uL (130-430); RED BLOOD CELL COUNT(AUTO) 3.02 MIL/uL (4.2-6.2); RED CELL DISTRIBUTION WIDTH 14.8 % (9.0-15.0); WHITE BLOOD COUNT (AUTO) 12.7 K/uL (4.8-10.8)
[2020-04-03] MEDS: FENOFIBRATE NANOCRYSTALLIZED 48 MG TABLET (TRICOR) GT SCH (08:59)
[2020-04-03] MEDS: levETIRAcetam 500 MG TABLET GT SCH ×2 (08:59→20:38)
[2020-04-03] MEDS: METOPROLOL TARTRATE 50 MG TABLET GT SCH ×2 (09:00→20:39)
--- NOTE | 2020-04-03 09:30 | NUR ---
Wound Evaluation: Wound Consult ordered for Low James Score. Patient evaluated for a low James score of 13. Patient was obtunded, and received in a Nathalie Bed with an IsoFlex SREEKANTH mattress with low air-loss therapy. Patient needs to be turned in bed. Skin assessment: 1. Sacral/Buttocks areas: Scar tissue and dark discolored tissue, present on admission. Recommend: Cleanse involved areas with mild soap and water. Pat dry. Apply Hydraguard barrier cream to involved areas. Cover with Sacral foam dressing. Perform site care daily and prn for dressing soiling or dislodgement. Recommend reposition patient side to side only every 2 hours with pillow support. Do not place patient flat on his back at any time. Elevate, off-load and float bilateral heels with one pillow lengthwise under each extremity at all times. Offload pressure areas with pillows for pressure re-distribution. Perform skin care and monitor skin integrity Q shift. Use moisture barrier cream on moisture susceptible areas QID and PRN for soiling. Maintain patient on a low air-loss mattress.
--- NOTE | 2020-04-03 09:34 | NUR ---
Nutrition Update James Scale 13 noted. Pt admitted for sepsis, UTI. Diet: N/A BMI: 27.8 kg/m2 RD to follow per nutrition care standards.
[2020-04-03 11:29] VITALS: BP_SYST 129
[2020-04-03] MEDS ORDERED: NACL 0.9% 1,000 ML IV ONE (14:30)
[2020-04-03] MEDS ORDERED: POTASSIUM CHLORIDE 20 MEQ/PKT PACKET GT ONE (14:30)
--- NOTE | 2020-04-03 14:38 | NUR ---
lethargic but easily aroused when mouth care done, tightly closed his mouth. Able to suction him, secretions white, not thick. unable to cough on his own febrile, tachy, and UA +, now spiking temp 101.6, checked twice by author. Still tachy. Concerning the chemistry, K+ 3.3, got replaced with 40meq via G Tube, and Tylenol. Now bolusing with 2.5 liter NS
[2020-04-03] MEDS: ACETAMINOPHEN 650 MG/20.3 ML UDC GT PRN (15:07)
[2020-04-03 15:43] VITALS: BP_SYST 107
[2020-04-03 20:00] VITALS: BP_SYST 101
--- NOTE | 2020-04-03 20:00 | NUR ---
Pt was received lying in bed obtunded. Pt is non-verbal and has Tracheostomy connected to Vent with settings of AC 14, TV 450, FIO2 40% and PEEP 5. Pt is tolerating vent settings well with O2 sat of 97%. GT Feeding of Jevity 1.5 noted running at 40ml/hr. GT residual 325ml and feeding pump turned off. Chew cath to gravity drainage noted with yellowish urine. IVF of NS is infusing well in left hand at 100ml/hr without any signs of infiltration. Fall and safety precautions are in place.
[2020-04-03] MEDS: ATORVASTATIN 20 MG TABLET GT SCH (20:39)
--- NOTE | 2020-04-03 21:00 | NUR ---
G Tube residual 300ml and GTF on hold.
--- NOTE | 2020-04-03 22:00 | NUR ---
GT residual 300ml and GTF still on hold.
--- NOTE | 2020-04-03 23:00 | NUR ---
Pt remains obtunded and GT residual 275ml. GTF on hold.
[2020-04-04] VITALS: BP_SYST 111
--- NOTE | 2020-04-04 | NUR ---
Pt is tolerating Vent settings well. GT residual 250ml and GTF still on hold.
[2020-04-04] MEDS: PIPERACILLIN/TAZO 3.375 GM in NS 50 ML IV SCH ×5 (00:18→23:47)
--- NOTE | 2020-04-04 01:00 | NUR ---
GTF still on hold due to residual of 200ml. No respiratory distress or seizure activity noted. IVF is infusing well in LH.
--- NOTE | 2020-04-04 02:00 | NUR ---
GT residual 175ml. GTF still on hold. Pt remains non-verbal and tolerating vent settings well. IVF is infusing well in LH. No seizure activity noted.
[2020-04-04] MEDS: IPRATROPIUM BROM 0.5 MG/2.5 ML VIAL.NEB (ATROVENT) INH SCH ×6 (03:00→23:26)
[2020-04-04] MEDS: ALBUTEROL SULFATE 0.083% 2.5 MG/3 ML VIAL.NEB INH SCH ×6 (03:00→23:26)
--- NOTE | 2020-04-04 03:10 | NUR ---
GT residual 150ml. GTF still on hold. Will recheck residual at 0400. If less than 150ml, will resume GTF.
[2020-04-04] MEDS: NACL 0.9% 1,000 ML IV SCH ×2 (03:15→15:47)
--- NOTE | 2020-04-04 04:00 | NUR ---
GT residual still 150ml. GTF still on hold. Will recheck residual at 0500. IVF is infusing well in LH. Pt is tolerating vent settings well.
--- NOTE | 2020-04-04 05:00 | NUR ---
GT residual 100ml and GTF of Jevity 1.5 was resumed at 40ml/hr. No seizure activity noted. IVF is infusing well in LH.
--- NOTE | 2020-04-04 06:00 | NUR ---
Wound care provided to G Tube site and sacral/bilateral buttocks areas. G Tube site was cleansed with normal saline and pat dried, followed by 4X4 drain sponge and 2inches paper tape. Small amount of dry brownish drainage noted on old G Tube site dressing. Sacral/bilateral buttocks scar tissue areas were washed with mild soap and water, pat dried, followed by application of Hydraguard cream and sacral foam dressing. No drainage or odor noted.
[2020-04-04 06:26] LABS: BASOPHILS % (AUTO) 0.2 % (0.0-2.0); EOSINOPHILS # (AUTO) 0.4 K/uL (0.0-0.4); LYMPHOCYTES # (AUTO) 0.6 K/uL (1.0-5.5); MEAN CORPUSCULAR HEMOGLOBIN 31 pg (27-31); WHITE BLOOD COUNT (AUTO) 11.4 K/uL (4.8-10.8)
--- NOTE | 2020-04-04 06:43 | NUR ---
Pt is resting quietly in bed. Pt is tolerating GTF and Vent settings well. No seizure activity noted. IVF is infusing well in LH. Fall, seizure and safety precautions are in place. Will endorse to day shift nurse.
[2020-04-04 07:02] LABS: ALBUMIN 1.9 g/dL (3.4-4.8); CREATININE 4.65 mg/dL (0.55-1.30); POTASSIUM 3.4 mmol/L (3.5-5.1); TOTAL BILIRUBIN 0.3 mg/dL (0.0-1.0)
--- NOTE | 2020-04-04 07:10 | NUR ---
RECEIVED REPORT FROM SUPERVISOR BROADLOOM RN AT BEDSIDE. PATIENT ASLEEP, TRACHE TO VENT (SEE NURSES SHIFT ASSESS), RESP THERAPIST IN ROOM, NAD OR RESP DISTRESS NOTED.
[2020-04-04 08:02] LABS: EOSINOPHILS % (AUTO) 3.9 % (0.0-4.0); LYMPHOCYTES % (AUTO) 5.5 % (20.5-51.5); MEAN CORPUSCULAR HGB CONC 32 % (32-36); MEAN CORPUSCULAR VOLUME 97 fL (79.0-98.0); MONOCYTES # (AUTO) 0.9 K/uL (0.0-1.0); MONOCYTES % (AUTO) 8.1 % (1.7-9.3); NEUTROPHILS # (AUTO) 9.4 K/uL (1.8-7.7); NEUTROPHILS % (AUTO) 82.3 % (40.0-70.0); PLATELET COUNT (AUTO) 154 K/uL (130-430); RED BLOOD CELL COUNT(AUTO) 2.23 MIL/uL (4.2-6.2); RED CELL DISTRIBUTION WIDTH 14.8 % (9.0-15.0)
[2020-04-04] MEDS: ACETAMINOPHEN 650 MG/20.3 ML UDC GT PRN (09:29)
[2020-04-04] MEDS: METOPROLOL TARTRATE 50 MG TABLET GT SCH ×2 (09:31→20:31)
[2020-04-04] MEDS: FENOFIBRATE NANOCRYSTALLIZED 48 MG TABLET (TRICOR) GT SCH (09:31)
[2020-04-04] MEDS: levETIRAcetam 500 MG TABLET GT SCH ×2 (09:32→20:30)
[2020-04-04 10:01] LABS: HEMATOCRIT 21.7 % (36-54); HEMOGLOBIN 6.9 g/dL (14.0-18.0)
--- NOTE | 2020-04-04 10:20 | NUR ---
MED PASS VIA PEG TUBE, RESIDUAL 180ML, FLUSHED W/ 100 ML S/P MEDS FLUSHED. VS T-99.4, TYLENOL 650MG GIVEN VIA PEG. TF HELD PER ORDERS. RESP REG NON-LABORED. WILL CONT TO MONITOR.
--- NOTE | 2020-04-04 10:53 | NUR ---
DR BARRIOS MADE AWARE OF CRITICAL LAB VALUES HGB 6.9/ HCT 21.6, SAW PT AT BEDSIDE. NEW ORDERS FOR 1 UNIT PRBC.
--- NOTE | 2020-04-04 11:30 | NUR ---
TYLENOL MEDICATION EFFECTIVE- TEMP IMPROVED 98.0, TYPE AND SCREEN DONE, PENDING BLOOD TRANSFUSION FOR HGB 6.9
[2020-04-04 12:00] VITALS: BP_SYST 91
--- NOTE | 2020-04-04 12:20 | NUR ---
MED PASS- IV ANTIBIOTICS. PT W/ DECREASED TEMP 98.0. LABS DONE PER SEPSIS PROTOCOL, SPUTUM CULTURE ORDERED- RESPIRATORY COLLECTED AND SENT TO LAB AT 1139 AM.
[2020-04-04 12:26] LABS: TOTAL IRON BIND. CAPACITY 184 ug/dL (250-450)
--- NOTE | 2020-04-04 14:10 | NUR ---
PER LAB AND WATER RESOURCE ENGINEER DISCUSSION: PATIENT HAS HAS ANTIBODIES IN HIS BLOOD, THEREFORE A SECOND TYPE AND SCREEN IS BEING DONE TO VERIFY AND TO SEND INFO TO [facility]. DUE TO ANTIBODIES IN PATIENTS' BLOOD, BLOOD HAS TO BE SENT FROM [facility] [employer], PROCESS IS IN PROGRESS.
--- NOTE | 2020-04-04 14:23 | NUR ---
Dietitian Recommendations *If/when TF resumes and medically feasible, recommend change TF to Glucerna 1.5 at goal rate of 50 ml/hr via GT to better meet needs and for better glycemic control. -Provides 1800 kcal, 99 g protein, 911 ml free H2O, meeting 86% of upper end estimated kcal needs, 98% of lower end estimated protein needs. Please see Nutrition Assessment for details. EPRD
--- NOTE | 2020-04-04 15:28 | NUR ---
PT IS A HARD STICK. CHOIR SINGER AND UNIT RN, GOT TELEPHONE CONSENT FOR A PICC LINE INSERTION.
[2020-04-04 16:23] VITALS: BP_SYST 112; BP_SYST 94
--- NOTE | 2020-04-04 17:02 | NUR ---
ON ROUNDS PT ASLEEP, VENTILATOR SETTINGS UNCHANGED, NO RESP DISTRESS NOTED.
[2020-04-04 17:49] LABS: INR 1.2 (0.80-1.20)
--- NOTE | 2020-04-04 18:55 | NUR ---
IV PUMP W/ CONTINUOS BEEPING, IV SITE FLUSHED, WITH BLOODY SITE, IV D/C'D. NEW IV SITED: TO LEFT WRIST 20G, W/ POSITIVE FLUSH. IVF INFUSING VIA PUMP AT 100 ML / HR.
--- NOTE | 2020-04-04 19:10 | NUR ---
REPORT TO PASSENGER RELATIONS REPRESENTATIVE VARGAS BUSCH AT BS. PT CONT ON TRACHE TO VENT NO RESP DISTRESS NOTED, ALARMS ARE SILENT AND WNL.
--- NOTE | 2020-04-04 19:30 | NUR ---
Pt was received lying in bed awake and non-verbal. Tracheostomy is connected to Vent with settings of AC 14, TV 450, FIO2 40% and PEEP 5. Pt is tolerating vent settings well with O2 sat of 100%. GT Feeding of Jevity 1.5 noted to be off. GT residual 40ml and GTF resumed at 40ml/hr. HOB is elevated 45 degrees to prevent aspiration. Chew cath to gravity drainage noted with yellowish urine. IVF of NS is infusing well in left wrist at 100ml/hr without any signs of infiltration. Fall, seizure and safety precautions are in place.
[2020-04-04 20:00] VITALS: BP_SYST 114
[2020-04-04] MEDS: ATORVASTATIN 20 MG TABLET GT SCH (20:30)
--- NOTE | 2020-04-04 21:30 | NUR ---
Pt is tolerating GTF and vent settings well. IVF is infusing well in left wrist. Fall, seizure and safety precautions are in place.
--- NOTE | 2020-04-04 22:30 | NUR ---
Pt's sister Josef Garcia called for updates. All her questions were answered.
--- NOTE | 2020-04-04 23:00 | NUR ---
Pt is resting comfortably in bed. No respiratory distress or seizure activity noted. IVF and GTF are infusing well. Fall, seizure and safety precautions are in place.
[2020-04-05 00:14] VITALS: BP_SYST 123
--- NOTE | 2020-04-05 01:00 | NUR ---
Pt is not in any distress at this time. GTF and IVF are infusing well.
[2020-04-05] MEDS: IPRATROPIUM BROM 0.5 MG/2.5 ML VIAL.NEB (ATROVENT) INH SCH ×5 (03:00→20:20)
[2020-04-05] MEDS: ALBUTEROL SULFATE 0.083% 2.5 MG/3 ML VIAL.NEB INH SCH ×5 (03:00→20:20)
--- NOTE | 2020-04-05 03:02 | NUR ---
Blood Transfusion Initiation: Consent signed per agreeing to administration of blood. Blood has been typed and crossmatched. Blood was sent from blood bank. Information on unit of blood checked against patient's wristband at bedside by two nurses. All information matched. Patient's sister informed of potential complications associated with blood transfusion. Informed of possible transfusion reaction symptoms. Vital signs taken within 6 minutes prior to initiation of transfusion. RN will remain with patient for first 15 minutes of transfusion at which time vital signs will be re-assessed.
--- NOTE | 2020-04-05 03:17 | NUR ---
Blood transfusion is in progress and no transfusion reaction noted. IV site is without any signs of infiltration.
--- NOTE | 2020-04-05 04:15 | NUR ---
Blood transfusion is in progress and no transfusion reaction noted. GTF is infusing well. HOB remains elevated 45 degrees.
--- NOTE | 2020-04-05 05:10 | NUR ---
G Tube site was cleansed with normal saline and pat dried, followed by 4X4 drain sponge and 2inches paper tape. Scanty amount of dry brownish drainage noted on old G Tube site dressing. Sacral/bilateral buttocks scar tissue areas were washed with mild soap and water, pat dried, followed by application of Hydraguard cream and sacral foam dressing. No drainage or odor noted.
--- NOTE | 2020-04-05 05:15 | NUR ---
Blood transfusion completed and no transfusion reaction noted. IVF of NS resumed at 100ml/hr.
[2020-04-05] MEDS: NACL 0.9% 1,000 ML IV SCH ×3 (05:29→21:23)
[2020-04-05] MEDS: PIPERACILLIN/TAZO 3.375 GM in NS 50 ML IV SCH ×3 (05:40→17:26)
--- NOTE | 2020-04-05 06:53 | NUR ---
Pt is awake and resting quietly in bed. Pt is tolerating GTF and Vent settings well. All pt's needs were attended to this shift. No seizure activity noted . IVF is infusing well in LW. Fall, seizure and safety precautions are in place. Will endorse to day shift nurse.
[2020-04-05 07:35] VITALS: BP_SYST 127
--- NOTE | 2020-04-05 08:00 | NUR ---
residual >200 cc. tube feeding held.
[2020-04-05] MEDS: FENOFIBRATE NANOCRYSTALLIZED 48 MG TABLET (TRICOR) GT SCH (09:07)
[2020-04-05] MEDS: levETIRAcetam 500 MG TABLET GT SCH ×2 (09:07→21:22)
[2020-04-05] MEDS: METOPROLOL TARTRATE 50 MG TABLET GT SCH ×2 (09:07→21:25)
--- NOTE | 2020-04-05 12:00 | NUR ---
Residual 150 cc. feeding on hold.
[2020-04-05 12:21] VITALS: BP_SYST 125
[2020-04-05 15:42] LABS: BASOPHILS % (AUTO) 0.6 % (0.0-2.0); EOSINOPHILS # (AUTO) 0.4 K/uL (0.0-0.4); EOSINOPHILS % (AUTO) 6.6 % (0.0-4.0); HEMATOCRIT 27.6 % (36-54); HEMOGLOBIN 9.1 g/dL (14.0-18.0); LYMPHOCYTES # (AUTO) 0.7 K/uL (1.0-5.5); LYMPHOCYTES % (AUTO) 10.5 % (20.5-51.5); MEAN CORPUSCULAR HEMOGLOBIN 31 pg (27-31); MEAN CORPUSCULAR HGB CONC 33 % (32-36); MEAN CORPUSCULAR VOLUME 95 fL (79.0-98.0); MONOCYTES # (AUTO) 0.5 K/uL (0.0-1.0); MONOCYTES % (AUTO) 7.8 % (1.7-9.3); NEUTROPHILS % (AUTO) 74.5 % (40.0-70.0); PLATELET COUNT (AUTO) 136 K/uL (130-430); RED BLOOD CELL COUNT(AUTO) 2.91 MIL/uL (4.2-6.2); RED CELL DISTRIBUTION WIDTH 15.6 % (9.0-15.0); WHITE BLOOD COUNT (AUTO) 6.7 K/uL (4.8-10.8)
[2020-04-05 16:00] VITALS: BP_SYST 131
--- NOTE | 2020-04-05 16:00 | NUR ---
residual is 70, restarted g-tube feeding. will cont to monitor.
--- NOTE | 2020-04-05 18:16 | NUR ---
closing notes, pt has been stable the whole shift, no s/s of pain, pt continued to be on vent. no changes in settings, pt suctioned prn. pt turned and repositioned [id number], r. upper arm picc inserted by picc nurse. will endorse to night nurse.
--- NOTE | 2020-04-05 19:25 | NUR ---
CHANGE OF SHIFT; pt. with trach on vent. non verbal. no acute distress. observed contact isolation for MDRO/FINANCIAL SERVICES AUDITOR urine. pt. eyes closed, unable to use call light, on fall risk and seizure precautions/padded rails.
[2020-04-05 20:30] VITALS: BP_SYST 134
--- NOTE | 2020-04-05 20:30 | NUR ---
NOTES: pt. with trach to vent @ 40% FIO2 TV 450 Peep % cm and AC rate 14. O2 sat 99%. suctioned orally with thick clear mucus. pt. non verbal, on vehicle monitor technician and shows sinus tach. IV NS via rt. upper arm with PICC line. noted generalized edema. dumont cath to osd. g tube feed with Jevity 1.5 @ 40 cc/hr. will recheck residual. observed contact isolation for MDRO /ROLL HANDLER urine.
[2020-04-05] MEDS: ATORVASTATIN 20 MG TABLET GT SCH (21:22)
--- NOTE | 2020-04-05 21:30 | NUR ---
NOTES: complete hs care done/arnie care. repositioned and turn to sides. suctioned orally and via trach. HOB elevated. on seizure precautions. unable to use call light, fall risk, bed alarm on.
--- NOTE | 2020-04-05 22:15 | NUR ---
NOTES: condition observed, noted to have hiccups. suctioned orally. HOB elevated. g tube residual @ 10 cc.
--- NOTE | 2020-04-05 23:30 | NUR ---
NOTES: pt. sister called and updated on pt. condition.
[2020-04-05 23:40] VITALS: BP_SYST 133
[2020-04-06] VITALS (7 sets, daily range): BP systolic 133–146
[2020-04-06] MEDS: PIPERACILLIN/TAZO 3.375 GM in NS 50 ML IV SCH ×5 (00:03→23:54)
--- NOTE | 2020-04-06 00:30 | NUR ---
NOTES: pt. condition observed. H2O flush via g tube, continue at 40 cc/hr. pt. sleeping. cardiac pattern unchanged. on seizure precautions.
--- NOTE | 2020-04-06 02:00 | NUR ---
NOTES: pt. repositioned. suctioned orally. IVF continuous. cardiac pattern unchanged. G tube feeding continuous, site clean with gauze. both legs and arms pretty elevated with pillows.
--- NOTE | 2020-04-06 03:00 | NUR ---
NOTES: pt. sleeping, no distress. remains on the vent via trach, occ. suctioning orally. condition guarded.
--- NOTE | 2020-04-06 04:00 | NUR ---
NOTES: partial am care/arnie care done. had moderate bowel movement. sacral dressing changed with old scar, some discoloration of buttocks, small skin tear on l\]rt. buttock, z britney applied on perianal area. turn to sides. oral care done, off feeding for now.
--- NOTE | 2020-04-06 05:30 | NUR ---
NOTES: condition unchanged. pretty calm. remains on the vent. g tube flush with water. remains sinus rhythm.
--- NOTE | 2020-04-06 06:11 | NUR ---
NOTES: RT at bedside and suctioned pt. via trach with thick whitish secretions. HOB elevated.
[2020-04-06 06:34] LABS: BASOPHILS % (AUTO) 0.3 % (0.0-2.0); EOSINOPHILS # (AUTO) 0.4 K/uL (0.0-0.4); EOSINOPHILS % (AUTO) 5.9 % (0.0-4.0); HEMATOCRIT 26.5 % (36-54); HEMOGLOBIN 8.6 g/dL (14.0-18.0); LYMPHOCYTES # (AUTO) 0.6 K/uL (1.0-5.5); LYMPHOCYTES % (AUTO) 9.7 % (20.5-51.5); MEAN CORPUSCULAR HEMOGLOBIN 31 pg (27-31); MEAN CORPUSCULAR HGB CONC 33 % (32-36); MEAN CORPUSCULAR VOLUME 96 fL (79.0-98.0); MONOCYTES # (AUTO) 0.5 K/uL (0.0-1.0); MONOCYTES % (AUTO) 7.7 % (1.7-9.3); NEUTROPHILS # (AUTO) 4.8 K/uL (1.8-7.7); NEUTROPHILS % (AUTO) 76.4 % (40.0-70.0); PLATELET COUNT (AUTO) 164 K/uL (130-430); RED BLOOD CELL COUNT(AUTO) 2.77 MIL/uL (4.2-6.2); RED CELL DISTRIBUTION WIDTH 15.5 % (9.0-15.0); WHITE BLOOD COUNT (AUTO) 6.2 K/uL (4.8-10.8)
--- NOTE | 2020-04-06 06:50 | NUR ---
CLOSING NOTES; vent settings the same, kept @ 40% FIO2, TV 450 PEEP 5cm and AC rate 14, with spontaneous breathing, suction prn, drools at times. IV patent via rt. upper arm PICC line, flushes good. g tube continuous with Jevity 1.5 @ 40 cc/hr. site clean. both arms and legs elevated with pillows. dumont cath intact. on seizure and fall risk precaution. for further care and assistance. will endorse to incoming shift. observed contact isolation for MDRO/VENEER STOCK GRADER urine. on groundwater monitoring technician shows borderline sinus rhythm/sinus tach.
[2020-04-06 07:10] LABS: ALBUMIN 1.9 g/dL (3.4-4.8); CALCIUM 8.6 mg/dL (8.4-11.0); CREATININE 3.8 mg/dL (0.55-1.30); POTASSIUM 3.4 mmol/L (3.5-5.1); TOTAL BILIRUBIN 0.2 mg/dL (0.0-1.0)
[2020-04-06] MEDS: ALBUTEROL SULFATE 0.083% 2.5 MG/3 ML VIAL.NEB INH SCH ×4 (07:14→20:37)
[2020-04-06] MEDS: IPRATROPIUM BROM 0.5 MG/2.5 ML VIAL.NEB (ATROVENT) INH SCH ×4 (07:14→20:38)
--- NOTE | 2020-04-06 07:45 | NUR ---
Routine Patient resting comfortably in bed with no respiratory distress noted. Patient stable at this time.
[2020-04-06] MEDS: METOPROLOL TARTRATE 50 MG TABLET GT SCH ×2 (09:31→21:05)
[2020-04-06] MEDS: FENOFIBRATE NANOCRYSTALLIZED 48 MG TABLET (TRICOR) GT SCH (09:32)
[2020-04-06] MEDS: levETIRAcetam 500 MG TABLET GT SCH ×2 (09:32→21:05)
[2020-04-06] MEDS: NACL 0.9% 1,000 ML IV SCH (09:32)
--- NOTE | 2020-04-06 09:34 | NUR ---
Routine Scheduled medications given per order; also started new IVF bag. Patient stable at this time.
[2020-04-06] MEDS ORDERED: KCL 20 mEq in 0.45% NS 1000 mL 1,000 ML IV SCH (10:24)
[2020-04-06] MEDS: KCL 20 mEq in 0.45% NS 1000 mL 1,000 ML IV SCH (11:53)
--- NOTE | 2020-04-06 11:55 | NUR ---
Routine Scheduled IV abx given per order. Patient stable with no respiratory distress noted.
--- NOTE | 2020-04-06 15:10 | NUR ---
Routine Patient resting quietly in bed with no respiratory distress noted. Patient stable.
--- NOTE | 2020-04-06 16:30 | NUR ---
Routine Patient repositioned; resting comfortably in bed with no respiratory distress noted. Stable.
--- NOTE | 2020-04-06 18:03 | NUR ---
Routine Scheduled IV abx given per order. Patient stable with no respiratory distress throughout shift.
--- NOTE | 2020-04-06 19:15 | NUR ---
CHANGE OF SHIFT; pt. calm, asleep when received. on vent via trach. pt. non verbal. on contact isolation for MDRO/SILK SCREEN ETCHER urine. on fall risk and seizure precautions. will assess after making rounds with other pts.
--- NOTE | 2020-04-06 20:30 | NUR ---
NOTES: RT at bedside, suctioned via trach. HOB keep elevated. IVF continuous via rt. upper arm PICC line. g tube feed with Jevity 1.5 @ 40 cc/hr. VS checked.
[2020-04-06] MEDS: ATORVASTATIN 20 MG TABLET GT SCH (21:05)
--- NOTE | 2020-04-06 21:15 | NUR ---
NOTES: complete hs care. repositioned and turned to sides. gown changed. pt. opens eyes and short tremors on stimulation. oral care done, suction. G tube feed, off for now, checked residual @ 40 cc. site clean. abdomen pretty distended. generalized edema , kept both upper and lower extremities elevated with pillows, air mattress on. fall and seizure precautions, padded side rails. cardiac pattern on borderline sinus tach. continuous O2 sat monitoring, pulse oximeter on. IV infusing via rt. upper arm with PICC line, double lumen. pt. non verbal, on trach #7 [place], vent settings FIO2 @40% TV 450 Peep 5 cm AC rate 14, with some spontaneous breathing. dumont cath to OSD. old scar and skin redness on sacral area, foam dressing intact. both heels reddened.
--- NOTE | 2020-04-06 22:40 | NUR ---
NOTES: repositioned. oral suction, drools with clear secretions. g tube feed resume at same rate.
--- NOTE | 2020-04-07 00:30 | NUR ---
NOTES: IV antibiotic infused. condition observed, continue to monitor. observed contact isolation for MDRO/SENIOR CLINICAL CONSULTANT urine.
[2020-04-07 01:11] VITALS: BP_SYST 134
--- NOTE | 2020-04-07 02:15 | NUR ---
NOTES: condition unchanged. pt. sleeping. on seizure precaution.
--- NOTE | 2020-04-07 03:30 | NUR ---
NOTES: suctioned orally, drooling. occ. cough, triggering the vent. g tube continuous, flushed with H2O.
--- NOTE | 2020-04-07 05:00 | NUR ---
NOTES: complete am care/arnie care. had large amts. of pasty yellow brown stool. kept clean and dry with FLOOR SCRUBBER. noted buttock area with dark discoloration and felt hard, z britney applied and foam dressing including sacral area, quite reddened skin. reposition, turn to sides. both arms pretty swollen/generalized edema, kept elevated with pillows, on air mattress.
[2020-04-07] MEDS: PIPERACILLIN/TAZO 3.375 GM in NS 50 ML IV SCH ×4 (05:37→23:51)
[2020-04-07] MEDS: KCL 20 mEq in 0.45% NS 1000 mL 1,000 ML IV SCH ×2 (05:38→21:04)
--- NOTE | 2020-04-07 06:45 | NUR ---
CLOSING NOTES; pt. with trach on the vent with same settings. IVF patent. g tube continuous with H2O flushes. HOB elevated. oral suction prn. dumont cath to osd. observed contact isolation for MDRO/PHYSICS TECHNICIAN urine. continue skin care and wound care. for further care and assistance. will endorse to incoming shift. fall risk and seizure precautions observed.
[2020-04-07 07:16] LABS: BASOPHILS % (AUTO) 0.5 % (0.0-2.0); EOSINOPHILS # (AUTO) 0.3 K/uL (0.0-0.4); EOSINOPHILS % (AUTO) 4.7 % (0.0-4.0); HEMATOCRIT 26.5 % (36-54); HEMOGLOBIN 8.6 g/dL (14.0-18.0); LYMPHOCYTES # (AUTO) 0.7 K/uL (1.0-5.5); MEAN CORPUSCULAR HEMOGLOBIN 31 pg (27-31); MEAN CORPUSCULAR HGB CONC 32 % (32-36); MEAN CORPUSCULAR VOLUME 96 fL (79.0-98.0); MONOCYTES # (AUTO) 0.6 K/uL (0.0-1.0); MONOCYTES % (AUTO) 9.1 % (1.7-9.3); NEUTROPHILS # (AUTO) 4.4 K/uL (1.8-7.7); NEUTROPHILS % (AUTO) 73.7 % (40.0-70.0); PLATELET COUNT (AUTO) 192 K/uL (130-430); RED BLOOD CELL COUNT(AUTO) 2.76 MIL/uL (4.2-6.2); RED CELL DISTRIBUTION WIDTH 15.2 % (9.0-15.0)
[2020-04-07] MEDS: ALBUTEROL SULFATE 0.083% 2.5 MG/3 ML VIAL.NEB INH SCH ×4 (07:21→20:07)
[2020-04-07] MEDS: IPRATROPIUM BROM 0.5 MG/2.5 ML VIAL.NEB (ATROVENT) INH SCH ×4 (07:21→20:07)
[2020-04-07 08:00] VITALS: BP_SYST 143
--- NOTE | 2020-04-07 08:00 | NUR ---
initial notes rec patient with his eyes open but non verbally responsive. pt on mechanical ventilator and no osb noted. resp easy and unlabored. bed to the lowest position and side rail sup and locked. call light within reached and knows when to call for assistance. oral hygiene rendered. suctioned and obtained light whitish phlegm. gt feeding in progress. no residual noted. will continue to monitor patient.
[2020-04-07 10:42] LABS: CALCIUM 9.1 mg/dL (8.4-11.0); CREATININE 3.41 mg/dL (0.55-1.30); POTASSIUM 3.5 mmol/L (3.5-5.1)
[2020-04-07 11:34] VITALS: BP_SYST 147
--- NOTE | 2020-04-07 12:00 | NUR ---
rounds seen by dr rincon. no sob noted. call light at reached. oral hyfiene and suctioning done. obtained large amount of whitish phlegm. turned repositioned for comfort.
[2020-04-07] MEDS: METOPROLOL TARTRATE 50 MG TABLET GT SCH ×2 (12:20→21:24)
[2020-04-07] MEDS: FENOFIBRATE NANOCRYSTALLIZED 48 MG TABLET (TRICOR) GT SCH (12:21)
[2020-04-07] MEDS: levETIRAcetam 500 MG TABLET GT SCH ×2 (12:21→21:04)
--- NOTE | 2020-04-07 14:00 | NUR ---
rounds sleeps at intervals and suctioned as well. no sob noted.
[2020-04-07 15:41] VITALS: BP_SYST 133
[2020-04-07 15:44] VITALS: BP_SYST 145
--- NOTE | 2020-04-07 19:00 | NUR ---
closing notes pt is sleeping soundly. no sob noted. was suctioned with whitish phlegm noted.gt feeding demarcus well.no residual noted. no sob noted.
[2020-04-07 20:00] VITALS: BP_SYST 157
--- NOTE | 2020-04-07 20:00 | NUR ---
INITIAL NOTE AT INITIAL ASSESSMENT, PATIENT IS RESTING IN BED, STABLE, NO SIGNS OF RESPIRATORY DISTRESS. PATIENT SHOWS NO PAIN PER FLACC SCALE USED. PLAN OF CARE FOR THE EVENING IS COMMUNICATED WITH THE PATIENT. PATIENT DEMONSTRATES CORRECT USAGE OF CALL LIGHT AT THIS TIME. BED IS LOCKED, ALARMED, AND AT THE LOWEST LEVEL. FALL SAFETY EDUCATION PROVIDED. FALL, SAFETY, ASPIRATION, SEIZURE, ISOLATION, AND RESPIRATORY PRECAUTIONS WILL BE TAKEN THROUGHOUT THE SHIFT.
[2020-04-07] MEDS: ATORVASTATIN 20 MG TABLET GT SCH (21:04)
[2020-04-07] MEDS: ACETAMINOPHEN 650 MG/20.3 ML UDC GT PRN (21:05)
[2020-04-07] MEDS: cloNIDine HCL 0.2 MG TABLET GT SCH (21:55)
--- NOTE | 2020-04-07 22:00 | NUR ---
MED PASS NOTE SCHEDULED MEDICATIONS GIVEN AT THIS TIME, PATIENT TOLERATED WELL. CALL LIGHT IS PLACED WITHIN REACH. BED IS LOCKED, ALARMED, AND AT THE LOWEST LEVEL.
--- NOTE | 2020-04-07 23:30 | NUR ---
HYGIENE CARE & ORAL CARE NOTE HYGIENE CARE AND ORAL CARE ARE PROVIDED AT THIS TIME, FRESH LINENS PROVIDED, AND PATIENT IS REPOSITIONED FOR COMFORT. PATIENT TOLERATED WELL. CALL LIGHT PLACED WITHIN REACH. BED IS LOCKED, ALARMED, AND AT THE LOWEST LEVEL.
[2020-04-08] VITALS: BP_SYST 139
--- NOTE | 2020-04-08 01:30 | NUR ---
NOTE PATIENT IS SLEEPING, STABLE, NO SIGNS OF RESPIRATORY DISTRESS. CALL LIGHT IS WITHIN REACH. BED IS LOCKED, ALARMED, AND AT THE LOWEST LEVEL.
--- NOTE | 2020-04-08 03:00 | NUR ---
NOTE PATIENT IS SLEEPING, STABLE, NO SIGNS OF RESPIRATORY DISTRESS. CALL LIGHT IS WITHIN REACH. BED IS LOCKED, ALARMED, AND AT THE LOWEST LEVEL.
[2020-04-08] MEDS: PIPERACILLIN/TAZO 3.375 GM in NS 50 ML IV SCH ×4 (04:28→23:27)
--- NOTE | 2020-04-08 06:45 | NUR ---
CLOSING NOTE PATIENT SLEPT WELL THROUGHOUT THE SHIFT, NO SHORTNESS OF BREATH NOTED. AT THIS TIME, PATIENT IS RESTING IN BED, STABLE, NO SIGNS OF RESPIRATORY DISTRESS. CALL LIGHT IS WITHIN REACH. BED IS LOCKED, ALARMED, AND AT THE LOWEST LEVEL. FALL, SAFETY, SEIZURE, ASPIRATION, ISOLATION AND RESPIRATORY PRECAUTIONS HAVE BEEN TAKEN THROUGHOUT THE SHIFT. WILL CONTINUE TO MONITOR UNTIL SHIFT REPORT IS GIVEN AT BEDSIDE TO AM NURSE.
[2020-04-08 06:46] LABS: BASOPHILS % (AUTO) 0.7 % (0.0-2.0); EOSINOPHILS # (AUTO) 0.3 K/uL (0.0-0.4); EOSINOPHILS % (AUTO) 5.2 % (0.0-4.0); HEMATOCRIT 24.8 % (36-54); HEMOGLOBIN 8.1 g/dL (14.0-18.0); LYMPHOCYTES # (AUTO) 0.7 K/uL (1.0-5.5); LYMPHOCYTES % (AUTO) 10.3 % (20.5-51.5); MEAN CORPUSCULAR HEMOGLOBIN 32 pg (27-31); MEAN CORPUSCULAR HGB CONC 33 % (32-36); MEAN CORPUSCULAR VOLUME 97 fL (79.0-98.0); MONOCYTES # (AUTO) 0.5 K/uL (0.0-1.0); MONOCYTES % (AUTO) 7.4 % (1.7-9.3); NEUTROPHILS # (AUTO) 5.1 K/uL (1.8-7.7); NEUTROPHILS % (AUTO) 76.4 % (40.0-70.0); PLATELET COUNT (AUTO) 225 K/uL (130-430); RED BLOOD CELL COUNT(AUTO) 2.55 MIL/uL (4.2-6.2); RED CELL DISTRIBUTION WIDTH 14.9 % (9.0-15.0); WHITE BLOOD COUNT (AUTO) 6.7 K/uL (4.8-10.8)
[2020-04-08 07:16] LABS: CALCIUM 9.1 mg/dL (8.4-11.0); CREATININE 2.93 mg/dL (0.55-1.30); POTASSIUM 3.9 mmol/L (3.5-5.1); TOTAL BILIRUBIN 0.2 mg/dL (0.0-1.0)
[2020-04-08] MEDS: ALBUTEROL SULFATE 0.083% 2.5 MG/3 ML VIAL.NEB INH SCH ×4 (07:35→19:52)
[2020-04-08] MEDS: IPRATROPIUM BROM 0.5 MG/2.5 ML VIAL.NEB (ATROVENT) INH SCH ×4 (07:36→19:53)
[2020-04-08 08:00] VITALS: BP_SYST 146
--- NOTE | 2020-04-08 08:00 | NUR ---
initial notes rec patient awake non verbally responsive with a mechanical ventilator. resp easy and unlabored. no sob noted. gt feeding demarcus well. with jevity feeding . no residual noted. call light within reached. pt was suctioned with moderate amount of whitish phlegm orally and to the trache. oral care rendered. turned repositioned for comfort.
[2020-04-08] MEDS: METOPROLOL TARTRATE 50 MG TABLET GT SCH ×2 (09:00→21:48)
[2020-04-08] MEDS: levETIRAcetam 500 MG TABLET GT SCH ×2 (09:00→21:48)
[2020-04-08] MEDS ORDERED: cloNIDine HCL 0.2 MG/24 HR PATCH.TDWK TD SCH (09:00)
[2020-04-08] MEDS: FENOFIBRATE NANOCRYSTALLIZED 48 MG TABLET (TRICOR) GT SCH (09:01)
[2020-04-08] MEDS: cloNIDine HCL 0.2 MG TABLET GT SCH (09:01)
--- NOTE | 2020-04-08 10:00 | NUR ---
rounds due meds given and demarcus well. no acute distress, no sob noted.
[2020-04-08 11:27] VITALS: BP_SYST 139
[2020-04-08] MEDS ORDERED: cloNIDine HCL 0.2 MG TABLET GT PRN (12:24)
[2020-04-08] MEDS: KCL 20 mEq in 0.45% NS 1000 mL 1,000 ML IV SCH (12:25)
--- NOTE | 2020-04-08 12:30 | NUR ---
rounds due meds were given and demarcus well. turned repositioned for comfort. no sob noted.
[2020-04-08 15:30] VITALS: BP_SYST 128
--- NOTE | 2020-04-08 16:11 | NUR ---
Nutrition F/U RD reviewed pt's current EMR record including diet Hx, physician notes, nursing notes, pertinent labs/meds/procedures, care trends, and care activity. Admission Dx: Sepsis, UTI PMH: intracerebral hemorrhage, trach and PEG placement, vent dependent respiratory failure, encephalopathy, HTN, cerebral infarction, seizures, chronic renal failure Current Diet Order/Nutrition Support: Jevity 1.5 at 40 ml/hr, Free Water Flush: 300 cc every q6hrs via GT x1 day Subjective Info: RD bedside visit deferred d/t isolation precautions and PPE conservation efforts. Per EMR review, pt continues w/ elevated BG levels, but otherwise, tolerating TF well w/ minimal residuals. Agree w/ previous RD to modify TF formula for improved BG control. Current TF regimen is not appropriate. Pertinent Medications: Lopressor, Keppra, IVF, Lipitor Pertinent Labs: Na 152 L, K 3.9 WNL (improved), BUN 34 H, CRE 2.93 H, BG 220 H NEW Estimated Energy Expenditure (kcals/day) 5095-0322 kcal/day (30-35 kcal/kg adj IBW for sepsis) Estimated Protein Required (g/day) 101-126 g pro/day (1.2-1.5 g pro/kg adj IBW for sepsis w/ ARF) NEW Estimated Fluid Required (l/day) Per physician d/t ARF Problem/Etiology/Signs/Symptoms *MODIFIED* Inadequate protein-energy intake r/t NPO/TF on hold AEB pt NPO w/ tube feeding on hold d/t residuals per MD. *improved -- TF infusing Altered nutrition-related labs related to endocrine dysfunction as evidenced by elevated BG lab values. Expected Outcomes/Goals -Will monitor re-initiation and tolerance of nutrition support w/ goal of pt meeting at least 75% of estimated nutritional needs, labs, trending WNL, normal GI function, skin integrity, and weight maintenance. Dietitian Recommendations * Recommend Glucerna 1.5 at goal rate of 70 ml/hr (goal rate) via GT Provides: 2520 kcal/day, 139 gm protein/day, 911 ml free water/day Meets: 100% of lower end estimated caloric needs, 100% of upper end estimated protein needs * Free Water Flush per physician d/t ARF Follow Up High Risk: F/U in 2-3 days
--- NOTE | 2020-04-08 16:20 | NUR ---
Dietitian Recommendations * Recommend Glucerna 1.5 at goal rate of 70 ml/hr (goal rate) via GT Provides: 2520 kcal/day, 139 gm protein/day, 911 ml free water/day Meets: 100% of lower end estimated caloric needs, 100% of upper end estimated protein needs * Free Water Flush per physician d/t ARF LP, RD Please refer to Nutrition F/U for details.
--- NOTE | 2020-04-08 19:00 | NUR ---
closing notes gt feeding demarcus well. turned repositioned for comfort. no further loose stools noted. oral hygiene rendered. no sob noted.
[2020-04-08 20:00] VITALS: BP_SYST 126
[2020-04-08] MEDS: ATORVASTATIN 20 MG TABLET GT SCH (21:48)
[2020-04-09] VITALS (7 sets, daily range): BP systolic 120–155
--- NOTE | 2020-04-09 | NUR ---
NOTE PATIENT IS SLEEPING, STABLE, NO SIGNS OF RESPIRATORY DISTRESS. CALL LIGHT IS WITHIN REACH. BED IS LOCKED, ALARMED, AND AT THE LOWEST LEVEL.
--- NOTE | 2020-04-09 02:00 | NUR ---
NOTE PATIENT IS SLEEPING, STABLE, NO SIGNS OF RESPIRATORY DISTRESS. CALL LIGHT IS WITHIN REACH. BED IS LOCKED, ALARMED, AND AT THE LOWEST LEVEL.
[2020-04-09] MEDS: ACETAMINOPHEN 650 MG/20.3 ML UDC GT PRN (02:21)
[2020-04-09] MEDS: KCL 20 mEq in 0.45% NS 1000 mL 1,000 ML IV SCH ×2 (04:26→22:14)
[2020-04-09] MEDS: PIPERACILLIN/TAZO 3.375 GM in NS 50 ML IV SCH ×2 (05:28→12:55)
--- NOTE | 2020-04-09 06:00 | NUR ---
CLOSING NOTE NO CHANGES. PATIENT SLEPT WELL THROUGHOUT THE SHIFT, NO SHORTNESS OF BREATH NOTED. AT THIS TIME, PATIENT IS RESTING IN BED, STABLE, NO SIGNS OF RESPIRATORY DISTRESS. CALL LIGHT IS WITHIN REACH. BED IS LOCKED, ALARMED, AND AT THE LOWEST LEVEL. FALL, SAFETY, SEIZURE, ASPIRATION, ISOLATION AND RESPIRATORY PRECAUTIONS HAVE BEEN TAKEN THROUGHOUT THE SHIFT. WILL CONTINUE TO MONITOR UNTIL SHIFT REPORT IS GIVEN AT BEDSIDE TO AM NURSE.
[2020-04-09 06:35] LABS: BASOPHILS % (AUTO) 0.5 % (0.0-2.0); EOSINOPHILS # (AUTO) 0.3 K/uL (0.0-0.4); EOSINOPHILS % (AUTO) 6.1 % (0.0-4.0); HEMATOCRIT 23.3 % (36-54); HEMOGLOBIN 7.4 g/dL (14.0-18.0); LYMPHOCYTES # (AUTO) 0.7 K/uL (1.0-5.5); LYMPHOCYTES % (AUTO) 12.7 % (20.5-51.5); MEAN CORPUSCULAR HEMOGLOBIN 31 pg (27-31); MEAN CORPUSCULAR HGB CONC 32 % (32-36); MEAN CORPUSCULAR VOLUME 97 fL (79.0-98.0); MONOCYTES # (AUTO) 0.4 K/uL (0.0-1.0); MONOCYTES % (AUTO) 6.8 % (1.7-9.3); NEUTROPHILS # (AUTO) 4.1 K/uL (1.8-7.7); NEUTROPHILS % (AUTO) 73.9 % (40.0-70.0); PLATELET COUNT (AUTO) 212 K/uL (130-430); WHITE BLOOD COUNT (AUTO) 5.5 K/uL (4.8-10.8)
[2020-04-09] MEDS: IPRATROPIUM BROM 0.5 MG/2.5 ML VIAL.NEB (ATROVENT) INH SCH ×4 (07:51→20:02)
[2020-04-09] MEDS: ALBUTEROL SULFATE 0.083% 2.5 MG/3 ML VIAL.NEB INH SCH ×4 (07:52→20:02)
--- NOTE | 2020-04-09 08:00 | NUR ---
ASSUMPTION OF CARE: RECEIVED PT ASLEEP, AROUSED VIA LIGHT TACTILE STIMULI, DX:RISK FOR INJURY, R/T SEPSIS, UTI. MADY. PT IS AFEBRILE, NO S/S OF DISTRESS, VSS, BREATH SOUNDS ARE CLEAR, BREATHING EASY, HAS NON PRODUCTIVE COUGH, NO INDICATION OF PAIN OR DISCOMFORT, F/C DRAINING CLEAR, YELLOW, URINE, TO GRAVITY, IV SITE INTACT, NO REDNESS OR SWELLING,.RESTING ON AIR MATTRESS, SZ PRECAUTIONS IN PLACE, CALL LIGHT PLACED WITHIN REACH, WILL CONT' TO MONITOR AND ASSESS.
[2020-04-09] MEDS: FENOFIBRATE NANOCRYSTALLIZED 48 MG TABLET (TRICOR) GT SCH (09:40)
[2020-04-09] MEDS: levETIRAcetam 500 MG TABLET GT SCH ×2 (09:40→20:32)
[2020-04-09] MEDS: METOPROLOL TARTRATE 50 MG TABLET GT SCH ×2 (09:42→20:33)
--- NOTE | 2020-04-09 09:45 | NUR ---
MEDICAL ADMINISTRATIVE: MORNING MEDS GIVEN, PER ORDERED BY Nir, TOLERATED WELL, TUBE FEEDING STOPPED DUE TO INCREASED RESIDUAL > 100ML, WILL CONT' TO MONITOR AND ASSESS.
--- NOTE | 2020-04-09 11:59 | NUR ---
Wound Re-Evaluation: Wound Consult ordered for Low James Score. Patient re-evaluated for a low James score of 13. Patient was obtunded, and received in a Bussey Bed with an IsoFlex SREEKANTH mattress with low air-loss therapy. Patient needs to be turned in bed. Skin assessment: 1. Sacral/Buttocks areas: Scar tissue and dark discolored tissue, present on admission. Recommend continue: Cleanse involved areas with mild soap and water. Pat dry. Apply moisture barrier cream to involved areas. Cover with Sacral foam dressing. Perform site care daily and prn for dressing soiling or dislodgement. 2. Right Posterior Proximal Thigh: IAD with erythema and MASD over scar tissue. Non-intact skin area has 100% red tissue. Surrounding tissue has pink scar tissue. Recommend: Cleanse involved area with mild soap and water. Pat dry. Apply Calmoseptine cream to involved area. Cover with foam dressing. Perform site care daily and prn for dressing soiling or dislodgement. Recommend continue: Reposition patient side to side only every 2 hours with pillow support. Do not place patient flat on his back at any time. Elevate, off-load and float bilateral heels with one pillow lengthwise under each extremity at all times. Offload pressure areas with pillows for pressure re-distribution. Perform skin care and monitor skin integrity Q shift. Use moisture barrier cream on moisture susceptible areas QID and PRN for soiling. Maintain patient on a low air-loss mattress.
--- NOTE | 2020-04-09 12:00 | NUR ---
NURSES NOTES: PT REPOSITIONED FOR COMFORT, ORAL CARE GIVEN, TOLERATED WELL, WILL CONT' TO MONITOR AND ASSESS.
--- NOTE | 2020-04-09 14:00 | NUR ---
SKIN CARE: PT SKIN CARE AND TX DONE AT THIS TIME, NO APPARENT OPEN WOUNDS OR BREAKDOWN, HAS BM X 1, WAS CLEANED, DRIED,REPOSTIONED ON AIR MATTRESS, WILL CONT' WITH POC.
[2020-04-09] MEDS ORDERED: MENTHOL/ZINC OXIDE 113 GM OINT. TP PRN (14:15)
--- NOTE | 2020-04-09 18:00 | NUR ---
NURSES NOTES: PT RESULTED FOR(+) MDRO SPUTUM, CALL PLACED TO DR BARRIOS, AWAITING CALL BACK.
--- NOTE | 2020-04-09 18:16 | NUR ---
NURSES NOTES: PT REMAINS STABLE, NO CHANGES IN POSITION NOTED, BREATHING EASY, NO DISTRESS NOTED, NO SZ ACTIVITY DURING SHIFT,, SIDE RAILS UP X 2, CALL LIGHT, WITHIN REACH, WILL CONT' TO MONITOR AND ASSESS.
--- NOTE | 2020-04-09 20:00 | NUR ---
Pt report received. Pt alert, unable to track with eyes, non-verbal, [id number]. Vent settings: A/C, 14, 450, 40%, 5. PICC to RUE patent with 0.45 NS with 20 mEq KCL infusing at 65 mL/hr without difficulty. Glucerna 1.5 infusing to G-tube at 40 mL/hr. F/C patent draining raad urine. Pt exhibits tremors with touch or movement, lasting approx 30 sec duration, then stops. Seizure precautions in effect with side rails padded. Pt also on contact/droplet isolation r/t MDRO to sputum.
[2020-04-09] MEDS: ATORVASTATIN 20 MG TABLET GT SCH (20:32)
--- NOTE | 2020-04-09 21:00 | NUR ---
Pt had large diarrhea BM. Pt cleaned, new gown applied and linens changed. Dsg to sacrum soiled in BM. Dsg removed revealing area of redness, no skin breakdown noted. Area cleansed with NS, pat dry, and Calmoseptine Ointment applied. Covered with foam dsg. Pt tolerated well.
--- NOTE | 2020-04-09 21:40 | NUR ---
CONSULT REASON FOR CONSULT: MDRO SPUTUM PERSON I SPOKE WITH: HANY CONSULTING PHYSICIAN: Rachel JAMESON DISPLAY MAKER PHONE NUMBER: [phone] ORDERING PHYSICIAN: DR. BARRIOS FACESHEET WAS FAXED OVER AT [phone]
--- NOTE | 2020-04-09 22:00 | NUR ---
Tube feeding residual 350 mL. Glucerna turned off.
--- NOTE | 2020-04-10 | NUR ---
Tube feeding residual 50 mL. Glucerna restarted and H2O 200 mL flush given.
--- NOTE | 2020-04-10 00:23 | NUR ---
PAGED I PAGED SR. CRUZ I SPOKE WITH PAULINE MARKHAM VAT HOUSE SUPERVISOR AT THIS MOMENT
[2020-04-10] MEDS ORDERED: METOCLOPRAMIDE HCL 10 MG/2 ML VIAL IVP ONE ×3 (00:25→08:30)
--- NOTE | 2020-04-10 00:25 | NUR ---
Contacted Dr. Craft r/t pt high residuals and inability to administer 600 mL H2O flushes q 6 hours as previously ordered. New orders received and entered for Reglan 10 mg IVP q 6 hrs and change H2O flushes to 200 mL q 6 hours.
[2020-04-10 00:32] VITALS: BP_SYST 150
[2020-04-10] MEDS ORDERED: METOCLOPRAMIDE HCL 10 MG/2 ML VIAL ONE ×2 (01:09→05:49)
--- NOTE | 2020-04-10 02:00 | NUR ---
Pt resting quietly, even and non-labored respirations, NAD.
[2020-04-10] MEDS ORDERED: METOCLOPRAMIDE HCL 10 MG/2 ML VIAL IVP SCH (06:00)
--- NOTE | 2020-04-10 06:00 | NUR ---
Pt resting quietly, even and non-labored respirations, no changes in vent settings. 0.45NAS 2with 20 mEq KCl continues to infuse at 65 mL/hr without difficulty to RUE PICC. Glucerna at 40 mL/hr with no residual noted. 200 mL H2O flush given at this time. F/C secure with total U/O of 1400 mL this shift. Pt exhibited tremor-like movements with touch and movement, otherwise, no seizure activity noted. Seizure precautions remain in effect with pads to side rails.
[2020-04-10 08:00] VITALS: BP_SYST 139
[2020-04-10] MEDS ORDERED: COMMUNICATION ORDER XX ONE (08:00)
[2020-04-10] MEDS: IPRATROPIUM BROM 0.5 MG/2.5 ML VIAL.NEB (ATROVENT) INH SCH ×5 (08:01→23:00)
[2020-04-10] MEDS: ALBUTEROL SULFATE 0.083% 2.5 MG/3 ML VIAL.NEB INH SCH ×5 (08:01→23:00)
[2020-04-10 08:55] LABS: CALCIUM 8.1 mg/dL (8.4-11.0); CREATININE 2.25 mg/dL (0.55-1.30); POTASSIUM 3.9 mmol/L (3.5-5.1)
[2020-04-10] MEDS: levETIRAcetam 500 MG TABLET GT SCH ×2 (08:56→20:50)
[2020-04-10] MEDS: METOPROLOL TARTRATE 50 MG TABLET GT SCH ×2 (08:56→20:51)
[2020-04-10] MEDS: KCL 20 mEq in 0.45% NS 1000 mL 1,000 ML IV SCH (08:57)
[2020-04-10] MEDS: FENOFIBRATE NANOCRYSTALLIZED 48 MG TABLET (TRICOR) GT SCH (08:57)
[2020-04-10] MEDS ORDERED: CEFTAZIDIME 1 GM in D5W 50 ML IV ONE (11:00)
[2020-04-10 12:00] VITALS: BP_SYST 122
[2020-04-10 16:00] VITALS: BP_SYST 126
[2020-04-10] MEDS: METOCLOPRAMIDE HCL 10 MG/2 ML VIAL IVP SCH ×2 (16:31→23:44)
--- NOTE | 2020-04-10 19:15 | NUR ---
OPENING NOTES RECEIVED PATIENT IN BED EYES CLOSED BREATHING UNLABORED. CURRENT VENT SETTINGS TOLERATED. GT FEEDING AND IVF INFUSING ORDERED. HOB ELEVATED. BED IN LOWEST LOCKED POSITION WITH ALARM ON. CALL LIGHT WITH IN REACH.
[2020-04-10 20:43] VITALS: BP_SYST 131
[2020-04-10] MEDS: ATORVASTATIN 20 MG TABLET GT SCH (20:50)
--- NOTE | 2020-04-10 20:51 | NUR ---
MED PASS PATIENT DUE MEDICATIONS GIVE. GT FEEDING WITH 200 ML RESIDUAL. HOLD FEEDING AT THIS TIME. VITAL SIGNS STABLE.
[2020-04-10] MEDS: CEFTAZIDIME 1 GM in D5W 50 ML IV SCH (23:41)
--- NOTE | 2020-04-11 | NUR ---
GT FEEDING RESIDUAL OBTAINED 80 ML. GT FEEDING RESUMED.
[2020-04-11 01:14] VITALS: BP_SYST 132
[2020-04-11] MEDS: IPRATROPIUM BROM 0.5 MG/2.5 ML VIAL.NEB (ATROVENT) INH SCH ×6 (03:00→23:05)
[2020-04-11] MEDS: ALBUTEROL SULFATE 0.083% 2.5 MG/3 ML VIAL.NEB INH SCH ×6 (03:00→23:05)
[2020-04-11] MEDS: KCL 20 mEq in 0.45% NS 1000 mL 1,000 ML IV SCH ×2 (03:08→20:47)
--- NOTE | 2020-04-11 03:10 | NUR ---
AM CARE AM CARE DONE. ALL LINENS CHANGED. GT DRESSING CHANGED. ORAL/SKIN CARE RENDERED.
[2020-04-11] MEDS: METOCLOPRAMIDE HCL 10 MG/2 ML VIAL IVP SCH ×3 (05:32→17:27)
--- NOTE | 2020-04-11 06:23 | NUR ---
CLOSING NOTES CURRENT VENT SETTINGS TOLERATED. IVF INFUSING ORDERED. GILBERTO PICC LINE DRESSING CLEAN AND DRY. GT FEEDING RESIDUAL 60 ML THIS AM. HOB ELEVATED. BED IN LOWEST LOCKED POSITION WITH ALARM ON. CALL LIGHT WITH IN REACH.
[2020-04-11 06:36] LABS: BASOPHILS % (AUTO) 0.4 % (0.0-2.0); EOSINOPHILS # (AUTO) 0.3 K/uL (0.0-0.4); EOSINOPHILS % (AUTO) 4.2 % (0.0-4.0); HEMATOCRIT 26.3 % (36-54); HEMOGLOBIN 8.6 g/dL (14.0-18.0); LYMPHOCYTES # (AUTO) 0.9 K/uL (1.0-5.5); LYMPHOCYTES % (AUTO) 12.9 % (20.5-51.5); MEAN CORPUSCULAR HEMOGLOBIN 31 pg (27-31); MEAN CORPUSCULAR HGB CONC 33 % (32-36); MEAN CORPUSCULAR VOLUME 96 fL (79.0-98.0); MONOCYTES # (AUTO) 0.4 K/uL (0.0-1.0); NEUTROPHILS # (AUTO) 5.6 K/uL (1.8-7.7); NEUTROPHILS % (AUTO) 76.5 % (40.0-70.0); PLATELET COUNT (AUTO) 255 K/uL (130-430); RED BLOOD CELL COUNT(AUTO) 2.74 MIL/uL (4.2-6.2); WHITE BLOOD COUNT (AUTO) 7.3 K/uL (4.8-10.8)
[2020-04-11 06:57] LABS: ALBUMIN 2.1 g/dL (3.4-4.8); CALCIUM 8.4 mg/dL (8.4-11.0); CREATININE 2.14 mg/dL (0.55-1.30); POTASSIUM 3.7 mmol/L (3.5-5.1); TOTAL BILIRUBIN 0.3 mg/dL (0.0-1.0)
[2020-04-11 08:00] VITALS: BP_SYST 129
[2020-04-11] MEDS: levETIRAcetam 500 MG TABLET GT SCH ×2 (08:45→20:47)
[2020-04-11] MEDS: METOPROLOL TARTRATE 50 MG TABLET GT SCH ×2 (08:45→20:47)
[2020-04-11] MEDS: FENOFIBRATE NANOCRYSTALLIZED 48 MG TABLET (TRICOR) GT SCH (08:45)
[2020-04-11 11:32] VITALS: BP_SYST 120
[2020-04-11] MEDS: CEFTAZIDIME 1 GM in D5W 50 ML IV SCH (11:40)
--- NOTE | 2020-04-11 14:38 | NUR ---
Nutrition F/U RD reviewed pt's current EMR record including diet Hx, physician notes, nursing notes, pertinent labs/meds/procedures, care trends, and care activity. Admission Dx: Sepsis, UTI PMH: intracerebral hemorrhage, trach and PEG placement, vent dependent respiratory failure, encephalopathy, HTN, cerebral infarction, seizures, chronic renal failure Current Diet Order/Nutrition Support: Jevity 1.5 at 40 ml/hr, Free Water Flush: 300 cc every q6hrs via GT x1 day Subjective Info: RD bedside visit deferred d/t isolation precautions and PPE conservation efforts. Per EMR review, TF has been modified to Glucerna 1.5 at 70 ml/hr w/ FWF per MD. Per RN note, TF was stopped on 04/09 d/t residual of 200ml and resumed on 04/10 w/ minimal residuals as of today. Spoke w/ RN Odette, who stated pt tolerating TF well today. Current TF regimen remains adequate and appropriate to meet pt's eneds. Pertinent Medications: Lopressor, Keppra, Lipitor, Reglan Pertinent Labs: Na 146 H, K 3.7 WNL, BUN 21 WNL (improved), CRE 2.14 H, BG 148 H (improved) Estimated Energy Expenditure (kcals/day) 3739-1997 kcal/day (30-35 kcal/kg adj IBW for sepsis) Estimated Protein Required (g/day) 101-126 g pro/day (1.2-1.5 g pro/kg adj IBW for sepsis w/ ARF) Estimated Fluid Required (l/day) Per physician d/t ARF Problem/Etiology/Signs/Symptoms *MODIFIED* Inadequate protein-energy intake r/t NPO/TF on hold AEB pt NPO w/ tube feeding on hold d/t residuals per MD. *improved -- TF infusing Altered nutrition-related labs related to endocrine dysfunction as evidenced by elevated BG lab values. *ongoing, but BGs trending down since previous RD assessment Expected Outcomes/Goals -Will monitor tolerance of enteral nutrition support w/ goal of pt meeting at least 75% of estimated nutritional needs, labs, trending WNL, normal GI function, skin integrity, and weight maintenance. Dietitian Recommendations * Recommend continue Glucerna 1.5 at goal rate of 70 ml/hr (goal rate) via GT Provides: 2520 kcal/day, 139 gm protein/day, 911 ml free water/day Meets: 100% of lower end estimated caloric needs, 100% of upper end estimated protein needs * Free Water Flush per physician d/t ARF Follow Up High Risk: F/U in 2-3 days
--- NOTE | 2020-04-11 14:44 | NUR ---
Dietitian Recommendations * Recommend continue Glucerna 1.5 at goal rate of 70 ml/hr (goal rate) via GT Provides: 2520 kcal/day, 139 gm protein/day, 911 ml free water/day Meets: 100% of lower end estimated caloric needs, 100% of upper end estimated protein needs * Free Water Flush per physician d/t ARF Please see Nutrition F/U for details. EP,RD
[2020-04-11 15:34] VITALS: BP_SYST 123
--- NOTE | 2020-04-11 19:25 | NUR ---
Opening note Received patient awake, resting on SREEKANTH mattress, eyes closed, he is nonverbal. Non labored breathing on ventilator with settings as ordered. No s/sx of distress. Patient has IVF infusing via IV to Rt PIIC, Chew catheter drainage bag to gravity. Feeding tube is running at 70 ml/hr. Bed is locked in lowest position, and bed alarm on. Updated board.
--- NOTE | 2020-04-11 19:55 | NUR ---
BREATHING TX Patient receiving breathing treatment being administered by RT.
[2020-04-11 20:00] VITALS: BP_SYST 129
[2020-04-11] MEDS: ATORVASTATIN 20 MG TABLET GT SCH (20:47)
--- NOTE | 2020-04-11 20:47 | NUR ---
Meds Assessed G-tube residual and obtained 5ml; returned. Due meds given via G-tube, tolerated. Oral care and suction provided, repositioned.
--- NOTE | 2020-04-11 23:11 | NUR ---
Breathing tx RT at bedside administering breathing treatment.
[2020-04-12] MEDS: CEFTAZIDIME 1 GM in D5W 50 ML IV SCH ×2 (00:06→11:03)
[2020-04-12] MEDS: METOCLOPRAMIDE HCL 10 MG/2 ML VIAL IVP SCH ×4 (00:06→17:37)
--- NOTE | 2020-04-12 00:06 | NUR ---
Free water, antibiotic Obtained 20 ml residual was noted and returned. Gave 200ml of free water flush. Administered Reglan IVP; tolerated. Patient had large soft formed stool and he was provided with arnie care and clean linen/pad. He was repositioned and turned.
[2020-04-12 00:30] VITALS: BP_SYST 126
--- NOTE | 2020-04-12 00:45 | NUR ---
Feeding bottle Hung new bottle of G-tube feeding and new tubing. Running as ordered at 70 ml/hr, patient tolerating.
--- NOTE | 2020-04-12 02:00 | NUR ---
rounds, patient resting in comfortable position, no distress and non labored breathing, IVF infusing well, feeding is running as ordered.
[2020-04-12] MEDS: ALBUTEROL SULFATE 0.083% 2.5 MG/3 ML VIAL.NEB INH SCH ×5 (03:00→19:58)
[2020-04-12] MEDS: IPRATROPIUM BROM 0.5 MG/2.5 ML VIAL.NEB (ATROVENT) INH SCH ×5 (03:00→19:58)
--- NOTE | 2020-04-12 04:35 | NUR ---
patient care, wound care Patient had second bowel movement, which was loose brown stool. He was provided w/ arnie-care, clean pad/linen. Wound care provided, wound pictures details noted in [facility] wound assessment.
--- NOTE | 2020-04-12 06:08 | NUR ---
free water, Reglan G-tube residual of 50ml was noted and returned. 200 ml of free water given. Administered Reglan as ordered. No bowel movement, repositioned.
--- NOTE | 2020-04-12 07:00 | NUR ---
closing note late entry d/t patient care Patient resting on SREEKANTH mattress. Non labored breathing on ventilator with settings as ordered. No s/sx of distress. Patient has IVF infusing via IV to Rt PIIC, Chew catheter drainage bag to gravity. Feeding tube is running at 70 ml/hr. Safety, seizure, and isolation precautions maintained. Bed is locked in lowest position, and bed alarm on. Needs met throughout shift, will endorse to day shift nurse.
--- NOTE | 2020-04-12 07:55 | NUR ---
Opening Notes Patient is laying in bed, alert and oriented x0. Pt remains on contact isolation and seizure precautions. No resp distress at this time. Pt is noted with a trach to ventilator (FiO2 40%, AC 14, TV 450, PEEP 5.0), patient has scheduled breathing treatments. Patient is nonverbal. Pt shows no signs of pain or distress at this time. PICC line noted on GILBERTO, double lumen, flushing well and blood return noted. Dressing is clean and dry. KCl 20 mEq + 1/2 NS @ 65 cc/hr, infusing well at this time. GTUBE site noted on right abdomen, dressing clean and dry, 10 cc of residual noted. Tube feed: Glucerna 1.5 @ 70 cc/hr, infusing well at this time. Chew catheter in place, draining by gravity. Urine is yellow and clear, sedimentation noted. Repositioned in bed. All needs met at this time. Safety and fall precautions in place. Bed in lowest position, alarm on, locked. Will continue to monitor.
[2020-04-12] MEDS: FENOFIBRATE NANOCRYSTALLIZED 48 MG TABLET (TRICOR) GT SCH (09:10)
[2020-04-12] MEDS: METOPROLOL TARTRATE 50 MG TABLET GT SCH ×2 (09:10→20:44)
[2020-04-12] MEDS: levETIRAcetam 500 MG TABLET GT SCH ×2 (09:10→20:44)
--- NOTE | 2020-04-12 10:24 | NUR ---
Notes Patient is being seen and examined by RESPIRATORY THERAPY. Suctioned patient as needed, tolerated well. Emptied out dumont catheter, 1200 cc of clear and yellow urine, sedimentation noted. Hung new IVF, KCl 20 mEq in 1/2 NS @ 65 cc/hr, infusing well. No signs of pain or distress at this time. Nurse washed patients hair, partial bed bath given. All needs met. Will continue to monitor.
[2020-04-12] MEDS: KCL 20 mEq in 0.45% NS 1000 mL 1,000 ML IV SCH (11:03)
[2020-04-12 12:31] VITALS: BP_SYST 134
--- NOTE | 2020-04-12 12:45 | NUR ---
Notes Patient is laying in bed, sleeping at this time. No signs of distress. No signs of pain. Will continue to monitor.
--- NOTE | 2020-04-12 14:10 | NUR ---
Notes Patient is laying in bed, sleeping at this time. No signs of distress. No signs of pain. New tube feeding hung, infusing well at this time. Repositioned in bed. Will continue to monitor.
[2020-04-12 14:28] VITALS: BP_SYST 134
--- NOTE | 2020-04-12 16:12 | NUR ---
Notes Patient is laying in bed, receiving a breathing treatment at this time. No resp distress noted. Breathing is even and unlabored. Emptied out dumont catheter, emptied out 700 cc of clear and yellow urine, sedimentation still noted. Will continue to monitor.
--- NOTE | 2020-04-12 16:25 | NUR ---
Notes Patient was repositioned in bed. No resp distress noted at this time. Breathing is even and unlabored. No signs of pain at this time, No needs at this time. Will continue to monitor.
[2020-04-12 16:36] VITALS: BP_SYST 130
--- NOTE | 2020-04-12 19:20 | NUR ---
Opening note Received patient awake, resting on SREEKANTH mattress, he is nonverbal. Non labored breathing on ventilator with settings as ordered. No s/sx of distress. Patient has IVF infusing via IV to Rt PIIC, Chew catheter drainage bag to gravity. Seizure pads on bilat top rails. Feeding tube is running at 70 ml/hr. Bed is locked in lowest position, and bed alarm on. Updated board.
[2020-04-12 20:00] VITALS: BP_SYST 138
--- NOTE | 2020-04-12 20:00 | NUR ---
RT RT at bedside to give breathing treatment.
[2020-04-12] MEDS: ATORVASTATIN 20 MG TABLET GT SCH (20:44)
--- NOTE | 2020-04-12 20:50 | NUR ---
Meds Due meds given; assessed G-tube residual and obtained 15ml; returned. Oral care and suction provided, repositioned.
[2020-04-13 00:20] VITALS: BP_SYST 142
[2020-04-13] MEDS: CEFTAZIDIME 1 GM in D5W 50 ML IV SCH (00:45)
[2020-04-13] MEDS: METOCLOPRAMIDE HCL 10 MG/2 ML VIAL IVP SCH ×3 (00:45→12:00)
--- NOTE | 2020-04-13 02:22 | NUR ---
rounds, reposition No distress, IVF infusing well, G-tube running as ordered; patient tolerating. He was repositioned/turned.
--- NOTE | 2020-04-13 05:00 | NUR ---
patient care, wound care Patient provided with bed bath, CHG bath, and clean pad/linen. Wound care provided, details noted in [facility] wound assessment.
--- NOTE | 2020-04-13 06:10 | NUR ---
free water, Reglan G-tube residual of 15ml was noted and returned. 200 ml of free water given. Administered Reglan as ordered.
[2020-04-13 06:22] LABS: BASOPHILS # (AUTO) 0.1 K/uL (0.0-0.2); EOSINOPHILS # (AUTO) 0.3 K/uL (0.0-0.4); EOSINOPHILS % (AUTO) 3.6 % (0.0-4.0); HEMATOCRIT 26.6 % (36-54); HEMOGLOBIN 8.7 g/dL (14.0-18.0); LYMPHOCYTES # (AUTO) 1.1 K/uL (1.0-5.5); LYMPHOCYTES % (AUTO) 12.9 % (20.5-51.5); MEAN CORPUSCULAR HEMOGLOBIN 31 pg (27-31); MEAN CORPUSCULAR HGB CONC 33 % (32-36); MEAN CORPUSCULAR VOLUME 97 fL (79.0-98.0); MONOCYTES # (AUTO) 0.6 K/uL (0.0-1.0); MONOCYTES % (AUTO) 6.5 % (1.7-9.3); NEUTROPHILS # (AUTO) 6.6 K/uL (1.8-7.7); PLATELET COUNT (AUTO) 250 K/uL (130-430); RED BLOOD CELL COUNT(AUTO) 2.76 MIL/uL (4.2-6.2); RED CELL DISTRIBUTION WIDTH 15.1 % (9.0-15.0); WHITE BLOOD COUNT (AUTO) 8.6 K/uL (4.8-10.8)
[2020-04-13 06:38] LABS: ALBUMIN 2.2 g/dL (3.4-4.8); CALCIUM 8.8 mg/dL (8.4-11.0); CREATININE 2.08 mg/dL (0.55-1.30); POTASSIUM 4.6 mmol/L (3.5-5.1); TOTAL BILIRUBIN 0.2 mg/dL (0.0-1.0)
--- NOTE | 2020-04-13 07:00 | NUR ---
closing note Patient resting on SREEKANTH mattress. Non labored breathing on ventilator with settings as ordered. No s/sx of distress. Patient has IVF infusing via IV to Rt PIIC, Chew catheter drainage bag to gravity. Feeding tube is running at 70 ml/hr. Safety, seizure, and isolation precautions maintained. Bed is locked in lowest position, and bed alarm on. Needs met throughout shift, will endorse to day shift nurse.
[2020-04-13 07:57] VITALS: BP_SYST 137
[2020-04-13] MEDS: ALBUTEROL SULFATE 0.083% 2.5 MG/3 ML VIAL.NEB INH SCH ×2 (07:59→11:20)
[2020-04-13] MEDS: IPRATROPIUM BROM 0.5 MG/2.5 ML VIAL.NEB (ATROVENT) INH SCH ×2 (07:59→11:20)
[2020-04-13 08:00] VITALS: BP_SYST 137
[2020-04-13] MEDS: METOPROLOL TARTRATE 50 MG TABLET GT SCH (08:53)
[2020-04-13] MEDS: levETIRAcetam 500 MG TABLET GT SCH (08:54)
[2020-04-13] MEDS: FENOFIBRATE NANOCRYSTALLIZED 48 MG TABLET (TRICOR) GT SCH (08:54)
--- NOTE | 2020-04-13 09:24 | NUR ---
Discharge Planning: DCP faxed pt referral to [facility] ([phone]) DCP to [facility] up Addendum: 04/13/20 at 0936 by Isela Martines DP DCP followed up with Anup on referral to [facility] ([phone]) pt will go to room 43 Addendum: 04/13/20 at 0954 by Isela Martines DP DCP took patient packet to nurse stations and made nurse aware [employer] [phone] should be called for transportation when ready. Can be put on will call.
[2020-04-13 11:01] VITALS: BP_SYST 137
--- NOTE | 2020-04-13 11:10 | NUR ---
PAGED PAGED GOYO IZAGUIRRE AT [phone] SPOKE WITH PAULINE.
--- NOTE | 2020-04-13 11:11 | NUR ---
BOOKED WITH [facility], THE [facility]BUL[facility] WITH RT TO TAKE PT TO [facility] [address]. SPOKE [place] K[place]DR[place] [id number]. [facility] WILL TAKE PT TO [facility] [address]. FUEL CELL BATTERY TECHNICIAN TIME IS 1500. SPOKE TO OVIDIO.
[2020-04-13] MEDS ORDERED: Levaquin GT (11:25)
[2020-04-13 12:00] VITALS: BP_SYST 133
--- NOTE | 2020-04-13 12:18 | NUR ---
Remains non-verbal, condition stable enough, and [facility], report given Kacey-, last dose of FORTAZ ivpb given now at 12noon. Abx changed to Levaquin , po, given through GT x 7days more. Asked Kacey whether PICC should stay, because patient is not an easy stick, Kacey asked PICC out, request honored. Indwelling dumont stay with the patient. will be picked up at 1500 [facility]. Sister Josef Singh, made aware of this transfer.
[2020-04-13 16:00] VITALS: BP_SYST 112
--- NOTE | 2020-04-13 16:04 | NUR ---
MADE A F/U CALL TO [facility] CONTRACTED BY [facility] TO TAKE PT TO [facility]. AMBULANCE WILL BE COMING IN ANOTHER HOUR AROUND 1700. SPOKE TO DISPATCH.
--- NOTE | 2020-04-13 17:24 | NUR ---
1730, picked up by ambulance, [facility] to go back to [facility], condition remains unchanged, on ventilator, RT to go with the patient. Picc line out, monitor out, patient left the floor now. Pics on his buttocks taken this am by night court magistrate.
[2020-04-14] MEDS ORDERED: levoFLOXacin 250 MG TABLET GT SCH (10:00)
== END 2020-04-13 17:29 | DRG 720 ==
LOC: SED 23:47 → STU 04-03 01:48
PROVIDERS: ADMIT Internal Medicine Hospice and Palliative Medicine; ATTEND Internal Medicine Hospice and Palliative Medicine
PROC: 5A1955Z Respiratory Ventilation, Greater than 96 Consecutive Hours (ICD-10-PCS; principal; 2020-04-03)
PROC: 30233N1 Transfusion of Nonautologous Red Blood Cells into Peripheral Vein, Percutaneous Approach (ICD-10-PCS; 2020-04-05)
DX: A41.9 Sepsis, unspecified organism (principal); N39.0 Urinary tract infection, site not specified; N17.0 Acute kidney failure with tubular necrosis; I21.4 Non-ST elevation (NSTEMI) myocardial infarction; J18.9 Pneumonia, unspecified organism; R13.10 Dysphagia, unspecified; G40.909 Epilepsy, unspecified, not intractable, without status epilepticus; J96.21 Acute and chronic respiratory failure with hypoxia; D64.9 Anemia, unspecified; R65.21 Severe sepsis with septic shock; J90 Pleural effusion, not elsewhere classified; I47.1 Supraventricular tachycardia; R47.01 Aphasia; Y95 Nosocomial condition; I12.9 Hypertensive chronic kidney disease with stage 1 through stage 4 chronic kidney disease, or unspecified chronic kidney disease; N18.9 Chronic kidney disease, unspecified; Z20.828 Contact with and (suspected) exposure to other viral communicable diseases; G93.40 Encephalopathy, unspecified; Z99.11 Dependence on respirator [ventilator] status; Z93.0 Tracheostomy status; Z93.1 Gastrostomy status; Z79.1 Long term (current) use of non-steroidal anti-inflammatories (NSAID); Z79.899 Other long term (current) drug therapy; Z86.73 Personal history of transient ischemic attack (TIA), and cerebral infarction without residual deficits
CPT/HCPCS: 36415; 36600; 71045; 76770; 80048; 80053; 81000-TC; 82140-TC; 82607; 82803-TC; 82962; 83540-TC; 83550-TC; 83605; 84443-TC; 84484; 85025; 85610-TC; 85730-TC; 86870; 86886; 86900; 86901; 86920; 87040-TC; 87070-TC; 87081; 87086; 87205-TC; 93005; 94002; 94003; 94640; 94760; 96361; 96365; 96368; 99291; A6209; C1751; G0378; J0713; J2543; J2765; J3480; J7030; J7040; J7050; J7060; J7613; P9021

== ENCOUNTER 2021-04-20 16:37 | Inpatient (IN) | payer MEDICAID, SELFPAY ==
[~2021-04-20] VITALS: Ht 177.8 cm; Wt 75.3 kg
[2021-04-20 16:37] VITALS: BP_SYST 137
[~2021-04-20 16:37] MED LIST changes: +AMIN30LI2 GT; +ASCO500T20 GT; +BALS60OI TP; +CAT.2 GT; -CAT2PAT TD; +CEFT1PIG6 IV; +CYAN1TAB47 GT; +EPOE1VIA13 SUBCUT; +FER300L GT; +FLUC200T GT; +FOLI-43 GT; +INSU100V9 SUBCUT; +LOSA25TA3 GT; -MOM GT; +MULT-1117 GT; +NEPH GT; -NOR10 GT; +POTA20TA83 GT; +REGULAR INSULIN SQ; -SENN8.6T19 GT; +SSREG SUBCUT; -UTI-STAT GT; +[UNRECOGNIZED DRUG - CODE] SUBCUT
[2021-04-20 17:06] LABS: BASOPHILS # (AUTO) 0.1 K/uL (0.0-0.2); BASOPHILS % (AUTO) 0.7 % (0.0-2.0); EOSINOPHILS # (AUTO) 0.2 K/uL (0.0-0.4); EOSINOPHILS % (AUTO) 2.8 % (0.0-4.0); HEMATOCRIT 24.3 % (36-54); HEMOGLOBIN 7.9 g/dL (14.0-18.0); LYMPHOCYTES # (AUTO) 1.1 K/uL (1.0-5.5); LYMPHOCYTES % (AUTO) 12.4 % (20.5-51.5); MEAN CORPUSCULAR HEMOGLOBIN 31 pg (27-31); MEAN CORPUSCULAR HGB CONC 33 % (32-36); MEAN CORPUSCULAR VOLUME 94 fL (79.0-98.0); MONOCYTES # (AUTO) 1.1 K/uL (0.0-1.0); MONOCYTES % (AUTO) 11.9 % (1.7-9.3); NEUTROPHILS # (AUTO) 6.4 K/uL (1.8-7.7); NEUTROPHILS % (AUTO) 72.2 % (40.0-70.0); PLATELET COUNT (AUTO) 173 K/uL (130-430); RED BLOOD CELL COUNT(AUTO) 2.58 MIL/uL (4.2-6.2); RED CELL DISTRIBUTION WIDTH 17.5 % (9.0-15.0); WHITE BLOOD COUNT (AUTO) 8.8 K/uL (4.8-10.8)
[2021-04-20 17:21] LABS: CREATININE 1.98 mg/dL (0.55-1.30); POTASSIUM 3.1 mmol/L (3.5-5.1)
[2021-04-20 17:26] LABS: ALBUMIN 2.2 g/dL (3.4-4.8); PHOSPHORUS 3.1 mg/dL (2.7-4.5); TOTAL BILIRUBIN 0.2 mg/dL (0.0-1.0)
[2021-04-20 17:51] LABS: BILIRUBIN,URINE NEGATIVE (NEGATIVE); BLOOD, URINE 1+ (NEGATIVE); GLUCOSE,URINE TRACE (NEGATIVE); KETONES,URINE NEGATIVE (NEGATIVE); LEUKOCYTE ESTERASE ,URINE 3+ (NEGATIVE); NITRITE, URINE POSITIVE (NEGATIVE); PROTEIN URINE 1+ (NEGATIVE); UROBILINOGEN,URINE 0.2 (0.2-1.0)
[2021-04-20 17:52] LABS: CLARITY/URINE CLOUDY (CLEAR); COLOR,URINE YELLOW (YELLOW)
[2021-04-20 17:54] LABS: BACTERIA,URINE MODERATE /HPF (None Seen); WBC,URINE >100 /HPF (0-3)
[2021-04-20 17:55] LABS: YEAST,URINE Few /HPF (None Seen)
[2021-04-20 18:23] LABS: MUCUS,URINE None Seen /LPF (None Seen)
[2021-04-20] MEDS ORDERED: NACL 0.9% 1,000 ML IV ONE ×2 (18:30→20:00)
[2021-04-20 20:26] LABS: CALCIUM 14.2 mg/dL (8.4-11.0)
[2021-04-20] MEDS ORDERED: PAMIDRONATE DISODIUM 90 MG in NS 500 ML IV ONE (20:30)
[2021-04-20 21:48] VITALS: BP_SYST 140
[2021-04-20] MEDS ORDERED: ALBUTEROL SULFATE 0.083% 2.5 MG/3 ML VIAL.NEB INH PRN (22:45)
[2021-04-20] MEDS ORDERED: ACETAMINOPHEN 650 MG/20.3 ML UDC PO PRN (22:45)
[2021-04-20 23:00] VITALS: BP_SYST 123
[2021-04-20] MEDS ORDERED: DEXTROSE 50% JECT 50 ML DISP.SYRIN IVP PRN (23:00)
[2021-04-20 23:18] LABS: HEMOGLOBIN 8.9 g/dL (14.0-18.0); WHITE BLOOD COUNT (AUTO) 10.8 K/uL (4.8-10.8)
[2021-04-20 23:21] VITALS: BP_SYST 117
[2021-04-20] MEDS ORDERED: POTASSIUM CHLORIDE 20 MEQ TAB.PRT.SR ONE (23:45)
[2021-04-20 23:47] LABS: CREATININE 2.06 mg/dL (0.55-1.30); POTASSIUM 3.2 mmol/L (3.5-5.1)
[2021-04-20 23:54] LABS: BASOPHILS % (AUTO) 0.4 % (0.0-2.0); EOSINOPHILS # (AUTO) 0.1 K/uL (0.0-0.4); EOSINOPHILS % (AUTO) 1.3 % (0.0-4.0); HEMATOCRIT 28.1 % (36-54); LYMPHOCYTES # (AUTO) 0.7 K/uL (1.0-5.5); LYMPHOCYTES % (AUTO) 6.1 % (20.5-51.5); MEAN CORPUSCULAR HEMOGLOBIN 30 pg (27-31); MEAN CORPUSCULAR HGB CONC 32 % (32-36); MEAN CORPUSCULAR VOLUME 96 fL (79.0-98.0); MONOCYTES # (AUTO) 0.8 K/uL (0.0-1.0); MONOCYTES % (AUTO) 7.8 % (1.7-9.3); NEUTROPHILS # (AUTO) 9.1 K/uL (1.8-7.7); NEUTROPHILS % (AUTO) 84.4 % (40.0-70.0); PLATELET COUNT (AUTO) 158 K/uL (130-430); RED BLOOD CELL COUNT(AUTO) 2.94 MIL/uL (4.2-6.2); RED CELL DISTRIBUTION WIDTH 17.4 % (9.0-15.0)
[2021-04-21] VITALS (32 sets, daily range): BP systolic 101–144
[2021-04-21] MEDS: NACL 0.9% 1,000 ML IV SCH ×4 (00:05→13:34)
[2021-04-21] MEDS: POTASSIUM CHLORIDE 20 MEQ/PKT PACKET PO SCH ×3 (00:05→20:25)
[2021-04-21 00:19] LABS: CALCIUM 14.9 mg/dL (8.4-11.0)
[2021-04-21] MEDS ORDERED: PIPERACILLIN/TAZOBACTAM 2.25 GM VIAL IV ONE (01:08)
[2021-04-21] MEDS ORDERED: methylPREDNISolone SOD SUCC/PF 62.5 MG/ML VIAL ONE (01:59)
[2021-04-21] MEDS ORDERED: DIPHENHYDRAMINE INJ 50 MG/ML VIAL ONE ×2 (02:00→02:04)
[2021-04-21] MEDS ORDERED: methylPREDNISolone SOD SUCC/PF 62.5 MG/ML VIAL IVP ONE (02:00)
[2021-04-21] MEDS ORDERED: DIPHENHYDRAMINE INJ 50 MG/ML VIAL IVP ONE (02:00)
[2021-04-21] MEDS: PIPERACILLIN/TAZO 2.25G/DEX-IS 50 ML IV SCH ×3 (03:05→12:00)
[2021-04-21 06:53] LABS: BASOPHILS % (AUTO) 0.2 % (0.0-2.0); EOSINOPHILS % (AUTO) 0.1 % (0.0-4.0); HEMATOCRIT 24.3 % (36-54); HEMOGLOBIN 7.8 g/dL (14.0-18.0); LYMPHOCYTES # (AUTO) 0.3 K/uL (1.0-5.5); LYMPHOCYTES % (AUTO) 3.2 % (20.5-51.5); MEAN CORPUSCULAR HEMOGLOBIN 31 pg (27-31); MEAN CORPUSCULAR HGB CONC 32 % (32-36); MEAN CORPUSCULAR VOLUME 95 fL (79.0-98.0); MONOCYTES # (AUTO) 0.2 K/uL (0.0-1.0); MONOCYTES % (AUTO) 1.7 % (1.7-9.3); NEUTROPHILS # (AUTO) 9.9 K/uL (1.8-7.7); NEUTROPHILS % (AUTO) 94.8 % (40.0-70.0); PLATELET COUNT (AUTO) 170 K/uL (130-430); RED BLOOD CELL COUNT(AUTO) 2.57 MIL/uL (4.2-6.2); RED CELL DISTRIBUTION WIDTH 17.4 % (9.0-15.0); WHITE BLOOD COUNT (AUTO) 10.4 K/uL (4.8-10.8)
[2021-04-21 07:43] LABS: INR 1.1 (0.80-1.20); PROTHROMBIN TIME 11.6 SECS (9.5-12.5)
[2021-04-21] MEDS: PEG 400/HYPROMELLOSE/GLYCERIN 15 ML DROPS OP SCH ×4 (08:17→20:25)
[2021-04-21] MEDS: CHLORHEXIDINE GLUCONATE 15 ML/DOSE, 480 ML MM SCH ×2 (08:17→20:24)
[2021-04-21] MEDS: FERROUS SULFATE 300 MG/5 ML UDC GT SCH ×2 (08:27→20:23)
[2021-04-21] MEDS: POLYETHYLENE GLYCOL 3350, 17 GM/ POWD.PACK PO SCH (08:28)
[2021-04-21] MEDS: DOCUSATE SODIUM 100 MG/10 ML UDC GT SCH ×2 (08:28→20:23)
[2021-04-21] MEDS: FENOFIBRATE NANOCRYSTALLIZED 48 MG TABLET (TRICOR) GT SCH (08:28)
[2021-04-21] MEDS: NEPHROVITE, (FOLIC ACID/VITAMIN B COMP W-C 1 TAB) GT SCH (08:28)
[2021-04-21 08:33] LABS: ALBUMIN 2.3 g/dL (3.4-4.8); CREATININE 2.11 mg/dL (0.55-1.30); PHOSPHORUS 3.1 mg/dL (2.7-4.5); POTASSIUM 4.3 mmol/L (3.5-5.1); TOTAL BILIRUBIN 0.6 mg/dL (0.0-1.0)
[2021-04-21] MEDS: INSULIN REGULAR, HUMAN 100 UNITS/ML, 10 ML VIAL (humuLIN R) SUBCUT PRN ×3 (08:54→20:33)
[2021-04-21 08:56] LABS: CALCIUM 14.1 mg/dL (8.4-11.0)
[2021-04-21] MEDS: BALSAM PERU/CASTOR OIL 60 GM OINT...G. TP SCH (09:00)
[2021-04-21] MEDS ORDERED: HYPROMELLOSE EACH EYE SCH (09:00)
[2021-04-21] MEDS ORDERED: NON-FORMULARY MEDICATION (Amino Acids/Protein Hydrolys (Pro-Stat Liquid) 30 ML) GT SCH (09:00)
[2021-04-21] MEDS ORDERED: CYANOCOBALAMIN GT SCH (09:00)
[2021-04-21] MEDS ORDERED: [UNRECOGNIZED DRUG - OTHER] GT SCH (09:00)
[2021-04-21] MEDS ORDERED: POTASSIUM CHLORIDE 20 MEQ TAB.PRT.SR GT SCH (09:00)
[2021-04-21] MEDS ORDERED: FOLIC ACID GT SCH (09:00)
[2021-04-21] MEDS ORDERED: DEXTRAN EACH EYE SCH (09:00)
[2021-04-21 09:19] LABS: TOTAL IRON BIND. CAPACITY 299 ug/dL (250-450)
[2021-04-21] MEDS ORDERED: POTASSIUM CHLORIDE 20 MEQ/PKT PACKET PO ONE (09:45)
[2021-04-21] MEDS: methylPREDNISolone SOD SUCC/PF 62.5 MG/ML VIAL IVP SCH ×2 (12:00→18:32)
[2021-04-21 16:15] LABS: BASOPHILS % (AUTO) 0.1 % (0.0-2.0); LYMPHOCYTES # (AUTO) 0.3 K/uL (1.0-5.5); MEAN CORPUSCULAR HEMOGLOBIN 30 pg (27-31); MEAN CORPUSCULAR HGB CONC 32 % (32-36); MEAN CORPUSCULAR VOLUME 95 fL (79.0-98.0); MONOCYTES # (AUTO) 0.1 K/uL (0.0-1.0); MONOCYTES % (AUTO) 1.7 % (1.7-9.3); NEUTROPHILS # (AUTO) 7.1 K/uL (1.8-7.7); NEUTROPHILS % (AUTO) 94.2 % (40.0-70.0); PLATELET COUNT (AUTO) 141 K/uL (130-430); RED BLOOD CELL COUNT(AUTO) 2.04 MIL/uL (4.2-6.2); RED CELL DISTRIBUTION WIDTH 17.3 % (9.0-15.0); WHITE BLOOD COUNT (AUTO) 7.5 K/uL (4.8-10.8)
[2021-04-21 16:22] LABS: ALBUMIN 1.7 g/dL (3.4-4.8); CREATININE 2.03 mg/dL (0.55-1.30); POTASSIUM 3.4 mmol/L (3.5-5.1); TOTAL BILIRUBIN 0.3 mg/dL (0.0-1.0)
[2021-04-21 16:31] LABS: HEMOGLOBIN 6.2 g/dL (14.0-18.0)
[2021-04-21 16:32] LABS: HEMATOCRIT 19.5 % (36-54)
[2021-04-21] MEDS: FLUCONAZOLE 100 mg/ NS 50 ML IV SCH (17:00)
[2021-04-21] MEDS ORDERED: LEVOFLOXACIN 250 MG/D5W 50 ML IV SCH (17:00)
[2021-04-21 17:19] LABS: BASOPHILS % (AUTO) 0.1 % (0.0-2.0); HEMATOCRIT 22.3 % (36-54); LYMPHOCYTES # (AUTO) 0.4 K/uL (1.0-5.5); LYMPHOCYTES % (AUTO) 4.5 % (20.5-51.5); MEAN CORPUSCULAR HEMOGLOBIN 30 pg (27-31); MEAN CORPUSCULAR HGB CONC 32 % (32-36); MEAN CORPUSCULAR VOLUME 96 fL (79.0-98.0); MONOCYTES # (AUTO) 0.1 K/uL (0.0-1.0); MONOCYTES % (AUTO) 1.7 % (1.7-9.3); NEUTROPHILS % (AUTO) 93.7 % (40.0-70.0); PLATELET COUNT (AUTO) 167 K/uL (130-430); RED BLOOD CELL COUNT(AUTO) 2.33 MIL/uL (4.2-6.2); RED CELL DISTRIBUTION WIDTH 17.2 % (9.0-15.0); WHITE BLOOD COUNT (AUTO) 8.6 K/uL (4.8-10.8)
[2021-04-21] MEDS: ATORVASTATIN 20 MG TABLET GT SCH (20:24)
[2021-04-22] VITALS (24 sets, daily range): BP systolic 117–147
[2021-04-22] MEDS: NACL 0.9% 1,000 ML IV SCH ×3 (01:29→12:21)
[2021-04-22] MEDS: methylPREDNISolone SOD SUCC/PF 62.5 MG/ML VIAL IVP SCH ×3 (01:30→12:20)
[2021-04-22 06:43] LABS: BASOPHILS % (AUTO) 0.4 % (0.0-2.0); EOSINOPHILS % (AUTO) 0.2 % (0.0-4.0); LYMPHOCYTES # (AUTO) 0.7 K/uL (1.0-5.5); LYMPHOCYTES % (AUTO) 5.6 % (20.5-51.5); MEAN CORPUSCULAR HEMOGLOBIN 31 pg (27-31); MEAN CORPUSCULAR HGB CONC 31 % (32-36); MEAN CORPUSCULAR VOLUME 99 fL (79.0-98.0); MONOCYTES # (AUTO) 0.3 K/uL (0.0-1.0); MONOCYTES % (AUTO) 2.6 % (1.7-9.3); NEUTROPHILS # (AUTO) 11.8 K/uL (1.8-7.7); NEUTROPHILS % (AUTO) 91.2 % (40.0-70.0); PLATELET COUNT (AUTO) 203 K/uL (130-430); RED BLOOD CELL COUNT(AUTO) 2.08 MIL/uL (4.2-6.2); RED CELL DISTRIBUTION WIDTH 17.5 % (9.0-15.0); WHITE BLOOD COUNT (AUTO) 12.9 K/uL (4.8-10.8)
[2021-04-22 07:08] LABS: CALCIUM 11.5 mg/dL (8.4-11.0); CREATININE 2.49 mg/dL (0.55-1.30); PHOSPHORUS 2.5 mg/dL (2.7-4.5); POTASSIUM 4.7 mmol/L (3.5-5.1)
[2021-04-22 07:48] LABS: HEMATOCRIT 20.6 % (36-54); HEMOGLOBIN 6.4 g/dL (14.0-18.0)
[2021-04-22] MEDS: FERROUS SULFATE 300 MG/5 ML UDC GT SCH ×2 (08:37→23:02)
[2021-04-22] MEDS: NEPHROVITE, (FOLIC ACID/VITAMIN B COMP W-C 1 TAB) GT SCH (08:37)
[2021-04-22] MEDS: DOCUSATE SODIUM 100 MG/10 ML UDC GT SCH ×2 (08:37→23:02)
[2021-04-22] MEDS: POLYETHYLENE GLYCOL 3350, 17 GM/ POWD.PACK PO SCH (08:37)
[2021-04-22] MEDS: POTASSIUM CHLORIDE 20 MEQ/PKT PACKET PO SCH (08:37)
[2021-04-22] MEDS: FENOFIBRATE NANOCRYSTALLIZED 48 MG TABLET (TRICOR) GT SCH (08:37)
[2021-04-22] MEDS: CHLORHEXIDINE GLUCONATE 15 ML/DOSE, 480 ML MM SCH ×2 (08:38→23:03)
[2021-04-22] MEDS: BALSAM PERU/CASTOR OIL 60 GM OINT...G. TP SCH (08:38)
[2021-04-22] MEDS: PEG 400/HYPROMELLOSE/GLYCERIN 15 ML DROPS OP SCH ×4 (08:39→23:03)
[2021-04-22] MEDS: INSULIN REGULAR, HUMAN 100 UNITS/ML, 10 ML VIAL (humuLIN R) SUBCUT PRN ×4 (08:52→23:57)
[2021-04-22] MEDS ORDERED: FUROSEMIDE 20 MG/2 ML VIAL IVP ONE (16:15)
[2021-04-22] MEDS ORDERED: EPOETIN ALFA 10,000 UNITS/ML VIAL SUBCUT SCH (17:00)
[2021-04-22] MEDS: 0.45% NACL 1,000 ML IV SCH (17:44)
[2021-04-22] MEDS: FLUCONAZOLE 100 mg/ NS 50 ML IV SCH (17:59)
[2021-04-22] MEDS: ATORVASTATIN 20 MG TABLET GT SCH (23:02)
[2021-04-22] MEDS: CALCITONIN SALMON,SYNTHETIC 200 UNITS/ML VIAL SUBCUT SCH (23:03)
[2021-04-23] VITALS (9 sets, daily range): BP systolic 123–158
[2021-04-23] MEDS: methylPREDNISolone SOD SUCC/PF 62.5 MG/ML VIAL IVP SCH ×5 (01:25→17:40)
[2021-04-23] MEDS: INSULIN REGULAR, HUMAN 100 UNITS/ML, 10 ML VIAL (humuLIN R) SUBCUT PRN ×4 (06:43→23:21)
[2021-04-23 06:58] LABS: BASOPHILS % (AUTO) 0.1 % (0.0-2.0); HEMATOCRIT 24.6 % (36-54); HEMOGLOBIN 7.7 g/dL (14.0-18.0); LYMPHOCYTES # (AUTO) 0.4 K/uL (1.0-5.5); LYMPHOCYTES % (AUTO) 3.7 % (20.5-51.5); MEAN CORPUSCULAR HEMOGLOBIN 31 pg (27-31); MEAN CORPUSCULAR HGB CONC 32 % (32-36); MEAN CORPUSCULAR VOLUME 98 fL (79.0-98.0); MONOCYTES # (AUTO) 0.6 K/uL (0.0-1.0); MONOCYTES % (AUTO) 6.7 % (1.7-9.3); NEUTROPHILS # (AUTO) 8.5 K/uL (1.8-7.7); NEUTROPHILS % (AUTO) 89.5 % (40.0-70.0); PLATELET COUNT (AUTO) 169 K/uL (130-430); WHITE BLOOD COUNT (AUTO) 9.5 K/uL (4.8-10.8)
[2021-04-23 07:55] LABS: ALBUMIN 2.2 g/dL (3.4-4.8); CALCIUM 12.1 mg/dL (8.4-11.0); CREATININE 2.21 mg/dL (0.55-1.30); POTASSIUM 4.7 mmol/L (3.5-5.1); TOTAL BILIRUBIN 0.2 mg/dL (0.0-1.0)
[2021-04-23] MEDS ORDERED: FUROSEMIDE 40 MG/4 ML VIAL ONE (08:22)
[2021-04-23] MEDS: DOCUSATE SODIUM 100 MG/10 ML UDC GT SCH ×2 (08:33→22:56)
[2021-04-23] MEDS: FENOFIBRATE NANOCRYSTALLIZED 48 MG TABLET (TRICOR) GT SCH (08:34)
[2021-04-23] MEDS: FERROUS SULFATE 300 MG/5 ML UDC GT SCH ×2 (08:34→22:56)
[2021-04-23] MEDS: NEPHROVITE, (FOLIC ACID/VITAMIN B COMP W-C 1 TAB) GT SCH (08:34)
[2021-04-23] MEDS: POTASSIUM CHLORIDE 20 MEQ/PKT PACKET PO SCH (08:34)
[2021-04-23] MEDS: POLYETHYLENE GLYCOL 3350, 17 GM/ POWD.PACK PO SCH (08:35)
[2021-04-23] MEDS: CALCITONIN SALMON,SYNTHETIC 200 UNITS/ML VIAL SUBCUT SCH ×2 (08:35→22:57)
[2021-04-23] MEDS: INSULIN GLARGINE 100 UNITS/ML 10 ML VIAL SUBCUT SCH (08:39)
[2021-04-23] MEDS: PEG 400/HYPROMELLOSE/GLYCERIN 15 ML DROPS OP SCH ×4 (08:40→22:58)
[2021-04-23] MEDS: CHLORHEXIDINE GLUCONATE 15 ML/DOSE, 480 ML MM SCH ×2 (11:12→22:58)
[2021-04-23] MEDS: cloNIDine HCL 0.2 MG TABLET GT PRN (13:54)
[2021-04-23] MEDS: BALSAM PERU/CASTOR OIL 60 GM OINT...G. TP SCH (15:50)
[2021-04-23] MEDS: FLUCONAZOLE 100 mg/ NS 50 ML IV SCH (17:40)
[2021-04-23] MEDS: ATORVASTATIN 20 MG TABLET GT SCH (22:56)
[2021-04-23] MEDS: ceFAZolin SODIUM 1 GM in D5W 50 ML IV SCH (22:58)
[2021-04-23] MEDS: 0.45% NACL 1,000 ML IV SCH (22:59)
[2021-04-24 00:48] VITALS: BP_SYST 143
[2021-04-24 04:15] VITALS: BP_SYST 142
[2021-04-24] MEDS: 0.45% NACL 1,000 ML IV SCH (05:40)
[2021-04-24] MEDS: ceFAZolin SODIUM 1 GM in D5W 50 ML IV SCH (05:40)
[2021-04-24] MEDS: methylPREDNISolone SOD SUCC/PF 62.5 MG/ML VIAL IVP SCH ×3 (05:41→11:29)
[2021-04-24] MEDS: INSULIN REGULAR, HUMAN 100 UNITS/ML, 10 ML VIAL (humuLIN R) SUBCUT PRN ×2 (06:46→11:31)
[2021-04-24 06:52] LABS: HEMATOCRIT 28.2 % (36-54); HEMOGLOBIN 9.1 g/dL (14.0-18.0); LYMPHOCYTES # (AUTO) 0.5 K/uL (1.0-5.5); LYMPHOCYTES % (AUTO) 4.8 % (20.5-51.5); MEAN CORPUSCULAR HEMOGLOBIN 31 pg (27-31); MEAN CORPUSCULAR HGB CONC 32 % (32-36); MEAN CORPUSCULAR VOLUME 94 fL (79.0-98.0); MONOCYTES # (AUTO) 0.8 K/uL (0.0-1.0); MONOCYTES % (AUTO) 7.7 % (1.7-9.3); NEUTROPHILS # (AUTO) 9.6 K/uL (1.8-7.7); NEUTROPHILS % (AUTO) 87.5 % (40.0-70.0); PLATELET COUNT (AUTO) 192 K/uL (130-430); RED BLOOD CELL COUNT(AUTO) 2.99 MIL/uL (4.2-6.2); RED CELL DISTRIBUTION WIDTH 16.2 % (9.0-15.0); WHITE BLOOD COUNT (AUTO) 10.9 K/uL (4.8-10.8)
[2021-04-24 07:45] LABS: ALBUMIN 2.3 g/dL (3.4-4.8); CALCIUM 10.4 mg/dL (8.4-11.0); CREATININE 1.99 mg/dL (0.55-1.30); PHOSPHORUS 2.8 mg/dL (2.7-4.5); POTASSIUM 4.6 mmol/L (3.5-5.1); TOTAL BILIRUBIN 0.2 mg/dL (0.0-1.0)
[2021-04-24] MEDS: DOCUSATE SODIUM 100 MG/10 ML UDC GT SCH (08:43)
[2021-04-24] MEDS: FERROUS SULFATE 300 MG/5 ML UDC GT SCH (08:43)
[2021-04-24] MEDS: NEPHROVITE, (FOLIC ACID/VITAMIN B COMP W-C 1 TAB) GT SCH (08:44)
[2021-04-24] MEDS: CHLORHEXIDINE GLUCONATE 15 ML/DOSE, 480 ML MM SCH (08:44)
[2021-04-24] MEDS: POLYETHYLENE GLYCOL 3350, 17 GM/ POWD.PACK PO SCH (08:44)
[2021-04-24] MEDS: FENOFIBRATE NANOCRYSTALLIZED 48 MG TABLET (TRICOR) GT SCH (08:44)
[2021-04-24] MEDS: PEG 400/HYPROMELLOSE/GLYCERIN 15 ML DROPS OP SCH ×2 (08:44→13:02)
[2021-04-24] MEDS: POTASSIUM CHLORIDE 20 MEQ/PKT PACKET PO SCH (08:44)
[2021-04-24] MEDS: CALCITONIN SALMON,SYNTHETIC 200 UNITS/ML VIAL SUBCUT SCH (08:45)
[2021-04-24] MEDS: INSULIN GLARGINE 100 UNITS/ML 10 ML VIAL SUBCUT SCH (08:49)
[2021-04-24] MEDS: BALSAM PERU/CASTOR OIL 60 GM OINT...G. TP SCH (09:00)
[2021-04-24 09:12] VITALS: BP_SYST 160
[2021-04-24 09:14] VITALS: BP_SYST 160
[2021-04-24] MEDS: cloNIDine HCL 0.2 MG TABLET GT PRN (11:30)
[2021-04-24 12:10] VITALS: BP_SYST 148
[2021-04-24] MEDS ORDERED: CEFTAZIDIME 1 GM in D5W 50 ML IV SCH (13:30)
[2021-04-24 16:05] VITALS: BP_SYST 142
== END 2021-04-24 17:15 | DRG 425 ==
LOC: SED 16:37 → SIC 20:23 → STU 04-22 17:40
PROVIDERS: ADMIT Internal Medicine; ATTEND Internal Medicine
PROC: 5A1945Z Respiratory Ventilation, 24-96 Consecutive Hours (ICD-10-PCS; principal; 2021-04-20)
PROC: 30233N1 Transfusion of Nonautologous Red Blood Cells into Peripheral Vein, Percutaneous Approach (ICD-10-PCS; 2021-04-22)
DX: E83.52 Hypercalcemia (principal); N17.0 Acute kidney failure with tubular necrosis; G93.40 Encephalopathy, unspecified; G82.50 Quadriplegia, unspecified; J96.10 Chronic respiratory failure, unspecified whether with hypoxia or hypercapnia; E43 Unspecified severe protein-calorie malnutrition; E11.22 Type 2 diabetes mellitus with diabetic chronic kidney disease; Z99.11 Dependence on respirator [ventilator] status; Z93.0 Tracheostomy status; I12.9 Hypertensive chronic kidney disease with stage 1 through stage 4 chronic kidney disease, or unspecified chronic kidney disease; D63.8 Anemia in other chronic diseases classified elsewhere; E78.5 Hyperlipidemia, unspecified; L89.90 Pressure ulcer of unspecified site, unspecified stage; G40.909 Epilepsy, unspecified, not intractable, without status epilepticus; Z20.822 Contact with and (suspected) exposure to COVID-19; B37.49 Other urogenital candidiasis; B96.20 Unspecified Escherichia coli [E. coli] as the cause of diseases classified elsewhere; E86.0 Dehydration; E87.6 Hypokalemia; N31.9 Neuromuscular dysfunction of bladder, unspecified; N18.9 Chronic kidney disease, unspecified; Z86.73 Personal history of transient ischemic attack (TIA), and cerebral infarction without residual deficits; Z93.1 Gastrostomy status; Z88.1 Allergy status to other antibiotic agents; Z79.899 Other long term (current) drug therapy; Z87.440 Personal history of urinary (tract) infections; Z74.01 Bed confinement status; Z68.23 Body mass index [BMI] 23.0-23.9, adult
CPT/HCPCS: 36415; 36600; 71045; 76770; 80048; 80053; 81000; 82043; 82272; 82306; 82330; 82570; 82803-TC; 82962; 83519; 83540; 83550; 83690; 83735; 83970; 84100; 84443; 85025; 85610-TC; 85730-TC; 86886; 86900; 86901; 86920; 87081; 87086; 93005; 94002; 94003; 94640; 94760; 96360; 99291; J0630; J0690; J0713; J0885; J1200; J1450; J1815; J1940; J1956; J2430; J2543; J2930; J7040; J7060; P9021